=== PATIENT | female | born 1940 | race Caucasian/White ===

== ENCOUNTER 2020-03-25 10:45 | Outpatient (REF) | payer MEDICARE, SELFPAY ==
--- NOTE | 2020-03-25 | XR_ITS ---
EXAMINATION: XR CHEST CLINICAL INFORMATION: Bronchitis. COMPARISON: Chest 10/15/2019 TECHNIQUE: 2 views of the chest were obtained. FINDINGS: The lungs are well-expanded and clear of acute process. Heart size and pulmonary vascularity is normal. There is [id number] dextroscoliosis of dorsal spine. No lytic process. XR/XR chest 2V IMPRESSION: No acute cardiopulmonary process seen. Mild to moderate dextroscoliosis of dorsal spine.
[2020-03-25 13:52] LABS: MANUAL DIFF FLAG NO
[2020-03-25 14:00] LABS: Basophils Absolute Auto 0.1 X10*3/uL (0.0-0.2); Basophils Percent Auto 0.7 % (0-2); Eosinophils Absolute Auto 0.2 X10*3/uL (0.0-0.4); Eosinophils Percent Auto 2.5 % (0-4); Hemoglobin 14.8 g/dl (12.0-16.0); Imm Gran Abs Auto 0.03 X10*3/uL (0.00-0.03); Imm Gran Pct Auto 0.3 % (0.0-0.4); Lymphocytes Absolute Auto 2.9 X10*3/uL (1.2-4.9); Mean Corpuscular HGB Conc 31.5 g/dl (31.0-35.0); Mean Corpuscular Volume 88.8 fL (80-98); Monocytes Absolute Auto 0.5 X10*3/uL (0.1-1.2); Monocytes Percent Auto 5.6 % (2-11); Neutrophils Absolute Auto 5.9 X10*3/uL (2.0-8.3); Neutrophils Percent Auto 60.9 % (45-73); Platelet Count 227 X10*3/uL (160-400); Red Blood Count 5.29 X10*6/uL (4.20-5.50); Red Cell Distribution Width 13.4 % (11.0-16.0); White Blood Count 9.7 X10*3/uL (4.8-10.8)
[2020-03-25 14:48] LABS: Alanine Aminotransferase 36 U/L (0-31); Alkaline Phosphatase 153 U/L (39-117); Anion Gap 17 (12-20); Aspartate Amino Transferase 23 U/L (5-31); Bilirubin Total 0.5 mg/dL (0.0-1.0); Blood Urea Nitrogen 15 mg/dL (9-16); C Reactive Protein 2.98 mg/dL (< or = 0.50); Calcium 8.9 mg/dL (8.4-10.2); Carbon Dioxide 24 mmol/L (22-29); Chloride 104 mmol/L (96-108); Estimated Glomerular Filt Rate > 60; Glucose Random 106 mg/dL (60-115); Sodium 141 mmol/L (135-145); Total Protein 6.7 g/dL (6.5-8.0)
== END 2020-03-25 10:46 | disposition home or self-care (01) ==
LOC: HO.HMGCX 10:45
PROVIDERS: PCP Internal Medicine; Visit Provider Internal Medicine
DX: J40 Bronchitis, not specified as acute or chronic (principal); Z20.822 Contact with and (suspected) exposure to COVID-19
CPT/HCPCS: 36415; 71046; 80053; 85025; 86140; U0003

== ENCOUNTER 2020-04-12 | Outpatient (REF) | payer MEDICARE, SELFPAY | END 2020-04-12 00:01 | disposition home or self-care (01) | LOC: CF | PROVIDERS: Visit Provider Internal Medicine Cardiovascular Disease | DX: R06.02 Shortness of breath (principal); I48.0 Paroxysmal atrial fibrillation; I10 Essential (primary) hypertension | CPT/HCPCS: 93005; 99212 ==

== ENCOUNTER → 2020-04-12 14:50 | Outpatient (BNVA) | payer MEDICARE, SELFPAY | PROVIDERS: PCP Internal Medicine; Visit Provider Internal Medicine Cardiovascular Disease ==

== ENCOUNTER → 2020-04-21 07:26 | Outpatient (REF) | payer MEDICARE, SELFPAY ==
--- NOTE | ~2020-04-21 | NM_ITS ---
Myocardial perfusion study Indication: Shortness of breath evaluate for myocardial ischemia Technique: The patient was brought in for a Lexiscan perfusion study on 04/21/2020. Patient performed low-level exercise and was injected 0.4 mg of Lexiscan intravenously. Within a minute of injection, 25 mCi of sestamibi was given intravenously. Images were obtained using the SPECT gamma camera interlaced with the gating device. Images were obtained in supine position. Resting perfusion study was performed on 04/22/2020. Patient was administered 25 mCi of sestamibi intravenously at rest. Images were then obtained in supine position. Images obtained with and without CT attenuation. Total DLP 129 mGy-cm. Images were processed with the software and compared side to side in short axis, horizontal long axis and vertical long axis views. Findings: The stress perfusion study showed non attenuated images show mildly reduced uptake in the inferolateral and lateral wall of the LV myocardium especially distal lateral wall. Attenuation corrected images show normalized uptake in all segments of LV myocardium.. The gated study shows normal LV systolic function with calculated LVEF of 74%. LV cavity is normal size. The gated study shows normal systolic wall thickening and contraction of segments. Resting study shows no change in perfusion pattern compared to stress perfusion study. Gating at rest reveals normal systolic wall motion with ejection fraction at 69%. The findings are consistent with normal myocardial perfusion. NM/NM cardiolite stress test Impression: 1. Myocardial perfusion imaging study shows normal myocardial perfusion 2. Gated LVEF is 69% 3. Transient ischemic dilatation not present EKG nondiagnostic for ischemia
--- NOTE | 2020-04-21 07:31 | CA_ITS ---
Transthoracic Echocardiogram Patient (Last, First, Middle): Diane Licona R Gender: Female Date of : 1940 Age: 79 Procedure Date: 04/21/2020 Procedure Type: Transthoracic Echocardiogram Location: OP Height: 160.02 cm Weight: 79.38 kg BSA: 1.83 m2 Heart Rate: bpm BP: 140 / 78 mmHg Yarn Spinner: RUDDY Referring MD: Satnam Shaffer MD Inspector Water Pollution Control: Satnam Shaffer MD Symptoms: R06.02 - Shortness of breath Study Quality: Fair ECG Rhythm: Sinus Conclusions: - 1. Normal LV systolic function with impaired relaxation filling pattern next 2. Normal cardiac valvular Doppler 3. Normal RV systolic pressure 4. No pericardial effusion Findings Left Ventricle Normal left ventricular size, thickness, and systolic function. The visually estimated ejection fraction is between 60-65%. Spectral Doppler is indicative of an impaired relaxation filling pattern. Right Ventricle The right ventricle was not well visualized. Atria The left atrium is normal in size. Interatrial shunt cannot be excluded. The right atrium was not well visualized. Aortic Valve The aortic valve was not well visualized. There is no aortic valve stenosis. There is no aortic valve regurgitation. Mitral Valve Likely normal mitral valve structure and function. There is trace mitral valve regurgitation. There is no mitral valve stenosis. Pulmonic Valve The pulmonic valve was not well visualized. Tricuspid Valve The tricuspid valve was not well visualized. There is trace tricuspid valve regurgitation. The right ventricular systolic pressure is normal. The right ventricular systolic pressure is 21 mmHg. There is no evidence of pulmonary hypertension. Great Vessels The aorta was not well visualized. The pulmonary artery was not well visualized. Venous The inferior vena cava is normal in size and collapses greater than 50% with inspiration. Pericardium/Pleural There is no evidence of pericardial effusion. Prior Study Comparison No significant change compared to prior study dated: 05/06/2018. Measurements M-Mode Liner Measurements Normals - Women/Men AOV Cusps: 2.30 1.5-2.6 cm/m2 2D Linear Measurements IVSd: 0.88 0.6-0.9/0.6-1.0 cm LVIDd: 4.46 3.9-5.3/4.2-5.9 cm LVIDd Index: 2.44 2.4-3.2/2.2-3.1 cm/m2 LVIDs: 3.28 2.0-3.6 cm LVPWd: 0.83 0.7-1.1 cm Ao Root: 3.50 2.1-3.5 cm LA Diam: 3.40 2.7-3.8/3.0-4.0 cm LAIDs Index: 1.86 1.5-2.3 cm/m2 LV Mass: 152.61 67-162/88-224 g LV Mass Index: 83.39 43-95/49-115 g/m2 LVOT Diam: 2.20 3.0+(-)1.3 cm 2D Systolic Function EF 4C: 70.70 >55% EF 2C: 56.90 >55% EF BiP: 64.00 >55% Mitral Valve MV Pk E: 0.70 MV PK A: 0.81 MV Decel Time: 377.00 E/A: 0.90 E'Lateral: 6.64 E'Medial: 6.42 E/E' Med: 11.00 E/E' Lat: 10.60 PHT: 110.00 MVA PHT: 2.00 Decel [place]: 1.87 Aortic Valve AoV Pk Otto: 1.24 AoV Pk Grad: 6.00 LVOT LVOT Pk Otto: 0.69 LVOT Mn Otto: 0.50 LVOT VTI: 0.15 LVOT Pk Grad: 2.00 LVOT Mn Grad: 1.00 LVOT Diam: 2.20 LVOT Area: 3.80 Diastolic Function MV Pk E: 0.70 MV Pk A: 0.81 E/A: 0.90 E'Medial: 6.42 E/E' Med: 11.00 E' Laterial: 6.64 E/E' Lat: 10.60 Tricuspid Valve TR Pk Otto: 2.14 TR Pk Grad: 18.00 RA Press: 3.00 RVSP: 21.00 Great Vessels Aorta Ao Root-2D: 3.50 2.0-3.7 cm Ao Asc: 2.90 2.1-3.4 cm Ao Arch: 2.40 Pulmonary Valve PV Pk Otto: 1.10 Peak PV Grad: 5.00 Updated in Other Vendor System with Status of Final Satnam Shaffer MD electronically signed on 04/22/2020 3:09:26 PM with status of Final
--- NOTE | 2020-04-21 07:32 | CA_ITS ---
Acquisition Time: 2020-04-21 08:27:41 Total Exercise Time: 00:02:00 Test Indications: Dyspnea Medications: ELIQUIS LISINOPRIL/HCTZ METOPROLOL FLUOXETINE Protocol: LEXISCAN Max HR: 101 BPM 71% of Pred: 141 BPM Max BP: 126/072 mmHG Max Work Load: 1.0 METS Pharm stress test using Lexiscan while sitting and kicking her feet. Pt tolerated well, denies any anginal sx. C/o headache after Lexiscan, that was reversed with Aminophyline 75 mg IV. EKG with no arrhythmias, non diagnostic for ischemia. Nuclear images to follow. Normotensive response to test. Test reviewed with Dr. Mayen Referred By: Satnam Shaffer Overread By: Lori Peng
== END ==
LOC: HO.CARD 07:26
PROVIDERS: Visit Provider Internal Medicine Cardiovascular Disease
DX: R06.02 Shortness of breath (principal); I48.0 Paroxysmal atrial fibrillation; I10 Essential (primary) hypertension
CPT/HCPCS: 78452; 93005; 93017; 93306; 99212; A9500; J0280; J2785

== ENCOUNTER → 2020-05-10 14:44 | Outpatient (BNVA) | payer MEDICARE, SELFPAY | PROVIDERS: PCP Internal Medicine; Visit Provider Internal Medicine Cardiovascular Disease | DX: I48.0 Paroxysmal atrial fibrillation (principal); R06.02 Shortness of breath | CPT/HCPCS: 99212 ==

== ENCOUNTER 2020-06-01 15:38 | Outpatient (REF) | payer MEDICARE, SELFPAY ==
--- NOTE | ~2020-06-01 | MM_ITS ---
EXAMINATION: MM SCREENING DIGITAL BREAST TOMOSYNTHESIS, BILATERAL CLINICAL INFORMATION: Screening. Asymptomatic. The lifetime risk of breast cancer based on the Tyrer-Cuzick Model is 5%. COMPARISON: Mammography: 05/27/2019, 08/30/2015 TECHNIQUE: Digital breast tomosynthesis is performed in both the craniocaudal and mediolateral oblique views along with computer-aided detection (CAD). Synthesized 2D images are generated from the tomosynthesis. Additional right MLO view is provided. FINDINGS: There are scattered areas of fibroglandular density (ACR BI-RADS breast composition Category b). Parenchymal pattern is similar to prior studies. There is fine fibronodular pattern with scattered stable nodularity. Intraparenchymal nodes again seen posterior upper outer breasts. There is a dermal lesion overlying the posterior medial right breast and two incidental oil cysts overlying the central upper right breast. There is no significant mass or developing density, architectural abnormality, or abnormal calcifications. There is biopsy clip marker 12:30 o'clock position left breast. MM/MM tomosynthesis screening BI IMPRESSION: No significant changes from prior studies. ASSESSMENT: BI-RADS 2: Benign RECOMMENDATION: Routine annual mammography screening. This patient's information was entered into a reminder system with a target due date for their next mammogram.
== END 2020-06-01 15:39 | disposition home or self-care (01) ==
LOC: HO.MAMMO 15:38
PROVIDERS: Visit Provider Internal Medicine
DX: Z12.31 Encounter for screening mammogram for malignant neoplasm of breast (principal)
CPT/HCPCS: 77063; 77067

== ENCOUNTER 2020-06-20 07:53 | Outpatient (REF) | payer MEDICARE, SELFPAY ==
--- NOTE | 2020-06-20 | PFT_ITS ---
INDICATION: Dyspnea. SPIROMETRY: The FEV1 to FVC of 81% with an FEV1 of 1.29 L, which is 69% predicted and an FVC of 1.6 L, which is 64% predicted. No significant response to bronchodilators noted. Maximum voluntary ventilation only 54% predicted. LUNG VOLUMES: Total lung capacity 70% predicted with an expiratory reserve volume of 36% predicted. DIFFUSION CAPACITY: DLCO 49% predicted. COMPARISONS: None available. INTERPRETATION: No obstructive ventilatory defect. No significant response to bronchodilators noted. There is a moderate decrease in maximum voluntary ventilation, which could be secondary to deconditioning, although need to also consider neuromuscular conditions. The patient does have a mild restrictive ventilatory defect consistent with restrictive lung disease. In addition to that, there is a moderate to severe diffusion impairment. The patient also has an expiratory reserve volume that is decreased. Therefore, suggesting a component related to an elevated BMI. Clinical correlation warranted. Further imaging warranted. MD ELEAZAR Olson/MODL / [id number]
== END 2020-06-20 07:54 | disposition home or self-care (01) ==
LOC: HO.RESP 07:53
PROVIDERS: PCP Internal Medicine; Visit Provider Internal Medicine
DX: R06.00 Dyspnea, unspecified (principal)
CPT/HCPCS: 94060; 94727; 94729

== ENCOUNTER 2020-08-31 15:32 | Emergency (ER) | payer MEDICARE, SELFPAY ==
--- NOTE | ~2020-08-31 | CT_ITS ---
EXAMINATION: CT HEAD WITHOUT CONTRAST CT FACIAL BONES WITHOUT CONTRAST CT CERVICAL SPINE WITHOUT CONTRAST CLINICAL INFORMATION: Trauma COMPARISON: CT head 09/17/2019 TECHNIQUE: Imaging was performed from the skull base to vertex without intravenous administration of contrast. In addition, helical noncontrast CT imaging was acquired through the cervical spine and facial bones and source images were reviewed along with axial reconstructions and sagittal and coronal MPRs. [This CT examination was performed using dose optimization techniques as appropriate, variously including the following: *Automated exposure control *Adjustment of mA and/or kV according to patient size (this includes techniques or standardized protocols for targeted exams where dose is matched to indication/reason for exam; i.e. extremities or head) *Use of iterative reconstruction technique] DLP: 1586 mGy-cm FINDINGS: HEAD: No intracranial mass, hemorrhage, or midline shift is visualized. There is generalized global volume loss. There is moderate prominence of the ventricles and the sulci . There are vascular calcifications of the internal carotid arteries bilaterally. No extra-axial collections are identified. FACIAL BONES: There is no evidence of an acute facial bone fracture. The orbits are unremarkable in appearance. CERVICAL SPINE: There is no evidence of acute cervical spine fracture. Vertebral bodies remain normal in height, intervertebral disc spaces are preserved, and alignment is anatomic. No pre- or paravertebral soft tissue abnormality is identified. Limited assessment of the lung apices is unremarkable. CT/CT cervical spine wo con IMPRESSION: 1. No acute intracranial process or discrete facial bone fracture. 2. No acute cervical spine fracture or traumatic subluxation.
--- NOTE | ~2020-08-31 | CT_ITS ---
EXAMINATION: CT HEAD WITHOUT CONTRAST CT FACIAL BONES WITHOUT CONTRAST CT CERVICAL SPINE WITHOUT CONTRAST CLINICAL INFORMATION: Trauma COMPARISON: CT head 09/17/2019 TECHNIQUE: Imaging was performed from the skull base to vertex without intravenous administration of contrast. In addition, helical noncontrast CT imaging was acquired through the cervical spine and facial bones and source images were reviewed along with axial reconstructions and sagittal and coronal MPRs. [This CT examination was performed using dose optimization techniques as appropriate, variously including the following: *Automated exposure control *Adjustment of mA and/or kV according to patient size (this includes techniques or standardized protocols for targeted exams where dose is matched to indication/reason for exam; i.e. extremities or head) *Use of iterative reconstruction technique] DLP: 1586 mGy-cm FINDINGS: HEAD: No intracranial mass, hemorrhage, or midline shift is visualized. There is generalized global volume loss. There is moderate prominence of the ventricles and the sulci . There are vascular calcifications of the internal carotid arteries bilaterally. No extra-axial collections are identified. FACIAL BONES: There is no evidence of an acute facial bone fracture. The orbits are unremarkable in appearance. CERVICAL SPINE: There is no evidence of acute cervical spine fracture. Vertebral bodies remain normal in height, intervertebral disc spaces are preserved, and alignment is anatomic. No pre- or paravertebral soft tissue abnormality is identified. Limited assessment of the lung apices is unremarkable. CT/CT facial bones wo con IMPRESSION: 1. No acute intracranial process or discrete facial bone fracture. 2. No acute cervical spine fracture or traumatic subluxation.
--- NOTE | ~2020-08-31 | CT_ITS ---
EXAMINATION: CT HEAD WITHOUT CONTRAST CT FACIAL BONES WITHOUT CONTRAST CT CERVICAL SPINE WITHOUT CONTRAST CLINICAL INFORMATION: Trauma COMPARISON: CT head 09/17/2019 TECHNIQUE: Imaging was performed from the skull base to vertex without intravenous administration of contrast. In addition, helical noncontrast CT imaging was acquired through the cervical spine and facial bones and source images were reviewed along with axial reconstructions and sagittal and coronal MPRs. [This CT examination was performed using dose optimization techniques as appropriate, variously including the following: *Automated exposure control *Adjustment of mA and/or kV according to patient size (this includes techniques or standardized protocols for targeted exams where dose is matched to indication/reason for exam; i.e. extremities or head) *Use of iterative reconstruction technique] DLP: 1586 mGy-cm FINDINGS: HEAD: No intracranial mass, hemorrhage, or midline shift is visualized. There is generalized global volume loss. There is moderate prominence of the ventricles and the sulci . There are vascular calcifications of the internal carotid arteries bilaterally. No extra-axial collections are identified. FACIAL BONES: There is no evidence of an acute facial bone fracture. The orbits are unremarkable in appearance. CERVICAL SPINE: There is no evidence of acute cervical spine fracture. Vertebral bodies remain normal in height, intervertebral disc spaces are preserved, and alignment is anatomic. No pre- or paravertebral soft tissue abnormality is identified. Limited assessment of the lung apices is unremarkable. CT/CT head/brain wo con IMPRESSION: 1. No acute intracranial process or discrete facial bone fracture. 2. No acute cervical spine fracture or traumatic subluxation.
--- NOTE | ~2020-08-31 | XR_ITS ---
EXAMINATION: XR KNEE, LEFT CLINICAL INFORMATION: Trauma, pain COMPARISON: None TECHNIQUE: AP and crosstable lateral views of the left knee. FINDINGS: There is small suprapatellar effusion. Hoffa's fat pad at the deep infrapatellar bursa there are unremarkable. There is no fracture or dislocation or destructive process. No focal joint narrowing. There is mild spurring at the quadriceps insertion patella. XR/XR knee LT 2V IMPRESSION: Small suprapatellar effusion. No visible fracture or destructive process.
[2020-08-31 15:37] VITALS: BP 159/73; BP 181/79; PULSE 73; PULSE 75; RESP 18; TEMP 37; O2SAT 95; O2SAT 97; BMI 30.7
--- NOTE | 2020-08-31 15:51 | ED_ITS ---
HPI - Fall General Chief Complaint: Fall Stated Complaint: FALL,NOSE LAC,+COLLAR,NECK/HEAD PAIN Time Seen by Provider: 08/31/20 15:49 Source: patient Mode of arrival: EMS Limitations: no limitations History of Present Illness HPI Narrative: Fell while dancing landed on her face no LOC, complaining of head, neck and face pain. Patient is on maik [place] complaint: fall Onset (ago): minute(s) Fall from: standing Fall witnessed: yes, by bystander Place fall occurred: [facility] Loss of consciousness: none Symptoms prior to fall: none Context: tripped/slipped Location of injury: head Related Data Home Medications Medication Instructions Recorded Confirmed apixaban 5 mg tablet 5 mg PO BID 04/12/20 05/10/20 fluoxetine 20 mg capsule 20 mg PO DAILY 04/12/20 05/10/20 lisinopril 20 1 tab PO DAILY 04/12/20 05/10/20 mg-hydrochlorothiazide 12.5 mg tablet metoprolol succinate 25 mg 25 mg PO DAILY 04/12/20 05/10/20 tablet,extended release 24 hr Allergies Allergy/AdvReac Type Severity Reaction Status Date / Time Penicillins Allergy Intermediate HIVES Unverified 11/26/19 15:48 naproxen [Aleve] Allergy Unknown Verified 05/06/19 00:00 penicillin V Allergy Unknown Verified 05/06/19 00:00 From Aleve Allergy Severe ANAPHYLAXIS Uncoded 11/26/19 15:48 Review of Systems Constitutional: Constitutional: Reports no additional constitutional complaints Eyes: Eyes: Reports no additional eye complaints ENT: Denies dizziness Cardiovascular: Cardiovascular: Reports no additional cardiovascular complaints Respiratory: Respiratory: Reports as per HPI Gastrointestinal: Gastrointestinal: Reports no additional gastrointestinal complaints Genitourinary: Genitourinary: Reports no additional female genitourinary complaints Musculoskeletal: Musculoskeletal: Reports no additional musculoskeletal complaints Integumentary/Breasts: Skin/Breast: Denies rash Neurologic: Reports system reviewed and no additional complaints, except as documented, Denies dizziness and Denies Sensory deficit (Neuro) Psychiatric: Psychiatric: Denies anxiety [facility] Past Medical History Medical History (Updated 09/01/20 @ 00:01 by Christian Johnson) HTN (hypertension) Paroxysmal atrial fibrillation Surgical History (Updated 04/08/20 @ 09:50 by ALLEN Shelley) Hx of cataract Family History Family History (Updated 04/08/20 @ 09:50 by ALLEN Shelley) Father No problems noted. Mother No problems noted. Social History Social History (Updated 04/12/20 @ 15:23 by ALLEN Shelley) Advance Directives: No Advance Directives Information Provided: Yes Physical Exam Vital Signs: Vital Signs: Last Vital Signs Temp 98.1 F 08/31/20 17:05 Pulse 66 08/31/20 17:05 Resp 15 08/31/20 17:05 BP 171/63 H 08/31/20 17:05 Pulse Ox 98 08/31/20 17:05 Body Mass Index 30.7 Const: Other: elderly female with multiple facial injuries Nutritional Anuj earance: average body habitus Orientation/consciousness: oriented to person and patient oriented x3 Limitations: no limitations HENMT: Other: nasal ecchymosis and bleeding, upper lip with swelling and ecchymosis, no oral injuries Head: Yes normal to inspection Ears: external ears normal Mouth: Normal oral and palatal mucosa present and oropharynx norm al Throat: Yes posterior oropharynx normal Eyes: General: appearance normal, both eyes and all related structures Neck: Other: supple Neck: Yes normal visual inspection Chest: Chest palpation & inspection: normal inspection of the chest Resp: Auscultation: clear to auscultation bilaterally Cardio: Jugular venous distension: no JVD Rate: regular rate Rhythm: regular rhythm Heart sounds: S1 normal heart sound present and S2 normal heart sound present GI: Inspection: Yes normal to inspection Palpation (GI): Soft to palpation, nontender and No hepatosplenomegaly present Auscultation: normal bowel sounds : General: Yes no CVA tenderness Back/Spine/Pelvis: Back: no CVA tenderness Skin: General skin exam: no rashes or lesions noted Neuro: General: oriented to person and patient oriented x3 Cranial nerves: Yes CN's II-XII intact bilaterally Motor exam (neuro): 5/5 motor strength present throughout Sensory Exam: No Sensory deficit (Neuro) Extrem: Other: left knee with swelling and ecchymosis Psych: Appearance: grossly normal Course Course Course Narrative: I have reviewed the chart Reevaluation(s) Reevaluation #1: multiple bruising with no fractures Time: 16:56 MDM - Fall Imaging Data CT scan - head: Radiologist's impression: no injury facial ct: Radiologist's impression: no facial fractures cervical spine CT: Radiologist's impression: no fracture left knee: Radiologist's impression: no fracture Discharge Plan Discharge Clinical Impression: Contusion of face, Contusion of knee Patient Disposition: Home, Self-Care Additional Instructions: ice 20 minutes off and on, tylenol every 6 hours for pain Prescriptions: No Action lisinopril-hydrochlorothiazide 20-12.5 mg tablet 1 tab PO DAILY RF: 0 fluoxetine 20 mg capsule 20 mg PO DAILY RF: 0 Eliquis 5 mg tablet 5 mg PO BID RF: 0 metoprolol succinate 25 mg tablet extended release 24 hr 25 mg PO DAILY RF: 0 Referrals: Qasim Cason MD, DO [Primary Care Provider] - 2 days Interventions: ED Discharge Assessment Last Done: 08/31/20 17:34 Discharge Date/Time: 08/31/20 17:43
[2020-08-31 17:05] VITALS: BP 171/63; PULSE 66; RESP 15; TEMP 36.7; O2SAT 98
[2020-08-31] MEDS: Acetaminophen 325 MG TABLET 975 MG PO (17:27)
--- NOTE | 2020-08-31 17:43 | PC.NURSE ---
bialteral knee wounds cleansed by staff, patient up with steady gait prior to dc
== END 2020-08-31 17:43 | disposition home or self-care (01) ==
PROVIDERS: Emergency Provider Emergency Medicine; PCP Internal Medicine
DX: S00.83XA Contusion of other part of head, initial encounter (principal); S80.02XA Contusion of left knee, initial encounter; W18.39XA Other fall on same level, initial encounter; I48.0 Paroxysmal atrial fibrillation; I10 Essential (primary) hypertension; Y93.41 Activity, dancing; Y92.129 Unspecified place in nursing home as the place of occurrence of the external cause; Y99.9 Unspecified external cause status; Z79.899 Other long term (current) drug therapy; Z79.01 Long term (current) use of anticoagulants
CPT/HCPCS: 70450; 70486; 72125; 73560; 99285

== ENCOUNTER 2021-02-13 13:23 | Outpatient (REF) | payer MEDICARE, SELFPAY ==
[2021-02-13 16:19] LABS: MANUAL DIFF FLAG NO
[2021-02-13 16:24] LABS: Basophils Absolute Auto 0.1 X10*3/uL (0.0-0.2); Basophils Percent Auto 0.7 % (0-2); Eosinophils Absolute Auto 0.2 X10*3/uL (0.0-0.4); Eosinophils Percent Auto 1.6 % (0-4); Hematocrit 47.4 % (37.0-47.0); Hemoglobin 14.9 g/dl (12.0-16.0); Imm Gran Abs Auto 0.06 X10*3/uL (0.00-0.03); Imm Gran Pct Auto 0.5 % (0.0-0.4); Lymphocytes Absolute Auto 2.5 X10*3/uL (1.2-4.9); Lymphocytes Percent Auto 21.2 % (20-40); Mean Corpuscular HGB Conc 31.4 g/dl (31.0-35.0); Mean Corpuscular Hemoglobin 28.5 pg (27.0-33.0); Mean Corpuscular Volume 90.6 fL (80.0-98.0); Monocytes Absolute Auto 0.6 X10*3/uL (0.1-1.2); Monocytes Percent Auto 5.4 % (2-11); Neutrophils Absolute Auto 8.2 x10*3/uL (2.0-8.3); Neutrophils Percent Auto 70.6 % (45-73); Platelet Count 245 X10*3/uL (160-400); Red Blood Count 5.23 X10*6/uL (4.20-5.50); Red Cell Distribution Width 13.1 % (11.0-16.0); White Blood Count 11.6 X10*3/uL (4.8-10.8)
[2021-02-13 16:35] LABS: Alanine Aminotransferase 49 U/L (0-31); Albumin Level 4.2 g/dL (3.5-5.0); Alkaline Phosphatase 185 U/L (39-117); Anion Gap 12 (12-20); Aspartate Amino Transferase 37 U/L (5-31); Bilirubin Total 0.6 mg/dL (0.0-1.0); Blood Urea Nitrogen 16 mg/dL (9-16); C Reactive Protein 3.41 mg/dL (< or = 0.50); Calcium 9.9 mg/dL (8.4-10.2); Carbon Dioxide 31 mmol/L (22-29); Chloride 103 mmol/L (96-108); Estimated Glomerular Filt Rate > 60; Glucose Random 114 mg/dL (60-115); Potassium 5.3 mmol/L (3.3-5.1); Sodium 141 mmol/L (135-145); Total Protein 7.3 g/dL (6.5-8.0)
== END 2021-02-13 13:24 | disposition home or self-care (01) ==
LOC: HO.HMGCLDS 13:23
PROVIDERS: PCP Internal Medicine; Visit Provider Internal Medicine
DX: R35.0 Frequency of micturition (principal)
CPT/HCPCS: 36415; 80053; 85025; 86140

== ENCOUNTER 2021-02-14 22:27 | Outpatient (REF) | payer MEDICARE, SELFPAY ==
[2021-02-15 17:13] LABS: Appearance Urine HAZY; Color Urine YELLOW; Glucose Urine UA NEG (NEG); Leukocyte Esterase Urine 2+ (NEG); Nitrite Urine POS (NEG); Specific Gravity - Urine >= 1.030 (1.005-1.025); UACC Culture Trigger YES; Urine Blood TRACE (NEG); Urine Ketones 5 MG/DL (NEG); Urine Protein 1+ MG/DL (NEG-TRACE)
[2021-02-15 17:27] LABS: Bacteria Urine 1+ /LPF; Calcium Oxalate Crystals Urine 2+ /LPF; Mucus Urine 2+ /LPF; RBC Urine 0-2 /HPF (0); Squamous Epithelial Cell Urine 1+ /LPF; Tyrosine Crystal Urine TRACE /LPF
[2021-02-15 17:28] LABS: UACC CULT YES
== END 2021-02-14 22:28 | disposition home or self-care (01) ==
LOC: HO.LNP 22:27
PROVIDERS: Visit Provider Nurse Practitioner Family
DX: R30.0 Dysuria (principal)
CPT/HCPCS: 81001; 87086

== ENCOUNTER 2021-02-15 14:27 | Outpatient (REF) | payer MEDICARE, SELFPAY | END 2021-02-15 14:28 | disposition home or self-care (01) | LOC: HO.HMGCLNP 14:27 | PROVIDERS: Visit Provider Nurse Practitioner Family | DX: Z13.89 Encounter for screening for other disorder (principal) ==

== ENCOUNTER 2021-05-18 08:14 | Outpatient (REF) | payer OTHER, SELFPAY ==
--- NOTE | ~2021-05-18 | XR_ITS ---
EXAMINATION: XR KNEE, LEFT CLINICAL INFORMATION: Knee pain, unspecified chronicity COMPARISON: Radiographs of the left knee 08/31/2020 TECHNIQUE: Four views of the left knee. FINDINGS: There is minimal enthesopathy of the quadriceps tendon insertion. The bones and soft tissues are otherwise essentially normal. No fracture or joint effusion. Alignment is anatomic. Joint spaces are well maintained. No abnormal soft tissue calcification. XR/XR knee LT 4V IMPRESSION: No acute abnormality.
--- NOTE | ~2021-05-18 | XR_ITS ---
EXAMINATION: XR KNEE, RIGHT CLINICAL INFORMATION: Knee pain, unspecified chronicity. COMPARISON: None TECHNIQUE: Four views of the right knee. FINDINGS: There is mild enthesopathy of the quadriceps tendon insertion. And soft tissues are normal. No fracture or joint effusion. Alignment is anatomic. Joint spaces are well maintained. No abnormal soft tissue calcification. XR/XR knee RT 4V IMPRESSION: Essentially unremarkable knee.
[2021-05-18 11:35] LABS: MANUAL DIFF FLAG NO
[2021-05-18 11:50] LABS: Basophils Absolute Auto 0.1 X10*3/uL (0.0-0.2); Basophils Percent Auto 0.7 % (0-2); Eosinophils Absolute Auto 0.2 X10*3/uL (0.0-0.4); Eosinophils Percent Auto 2.2 % (0-4); Hematocrit 48.9 % (37.0-47.0); Hemoglobin 14.9 g/dl (12.0-16.0); Imm Gran Abs Auto 0.04 X10*3/uL (0.00-0.03); Imm Gran Pct Auto 0.4 % (0.0-0.4); Lymphocytes Absolute Auto 2.8 X10*3/uL (1.2-4.9); Mean Corpuscular HGB Conc 30.5 g/dl (31.0-35.0); Mean Corpuscular Hemoglobin 27.6 pg (27.0-33.0); Mean Corpuscular Volume 90.7 fL (80.0-98.0); Mean Platelet Volume 11.1 fL (9.4-12.3); Monocytes Absolute Auto 0.5 X10*3/uL (0.1-1.2); Monocytes Percent Auto 5.2 % (2-11); Neutrophils Absolute Auto 6.7 x10*3/uL (2.0-8.3); Neutrophils Percent Auto 64.5 % (45-73); Platelet Count 249 X10*3/uL (160-400); Red Blood Count 5.39 X10*6/uL (4.20-5.50); Red Cell Distribution Width 12.7 % (11.0-16.0); White Blood Count 10.4 X10*3/uL (4.8-10.8)
[2021-05-18 12:04] LABS: Alanine Aminotransferase 26 U/L (0-31); Albumin Level 4.2 g/dL (3.5-5.0); Alkaline Phosphatase 172 U/L (39-117); Anion Gap 14 (12-20); Aspartate Amino Transferase 22 U/L (5-31); Bilirubin Total 0.6 mg/dL (0.0-1.0); Blood Urea Nitrogen 14 mg/dL (9-16); Calcium 9.7 mg/dL (8.4-10.2); Carbon Dioxide 28 mmol/L (22-29); Chloride 104 mmol/L (96-108); Estimated Glomerular Filt Rate > 60; Glucose Random 125 mg/dL (60-115); Potassium 4.7 mmol/L (3.3-5.1); Sodium 141 mmol/L (135-145); Total Protein 7.1 g/dL (6.5-8.0)
[2021-05-18 12:30] LABS: Thyroid Stimulating Hormone 1.32 uIU/mL (0.32-4.0)
== END 2021-05-18 08:15 | disposition home or self-care (01) ==
LOC: HO.HMGCX 08:14
PROVIDERS: PCP Internal Medicine; Visit Provider Internal Medicine
DX: I10 Essential (primary) hypertension (principal); I48.92 Unspecified atrial flutter; F32.9 Major depressive disorder, single episode, unspecified; M25.561 Pain in right knee; R06.00 Dyspnea, unspecified; M25.562 Pain in left knee
CPT/HCPCS: 36415; 73564; 80053; 82306; 84443; 85025

== ENCOUNTER 2021-06-15 14:17 | Outpatient (REF) | payer OTHER, SELFPAY ==
--- NOTE | ~2021-06-15 | XR_ITS ---
EXAMINATION: XR CHEST CLINICAL INFORMATION: Shortness of breath COMPARISON: 03/25/2020 TECHNIQUE: 2 views of the chest were obtained. FINDINGS: Normal symmetric lung volumes. No parenchymal consolidation. No pleural effusion. No pneumothorax. Cardiomediastinal silhouette and pulmonary vascularity are within normal limits. Aorta is atherosclerotic. No acute osseous abnormalities. Moderate dextroconvex thoracic scoliosis. XR/XR chest 2V IMPRESSION: No acute findings.
== END 2021-06-15 14:18 | disposition home or self-care (01) ==
LOC: HO.XRAY 14:17
PROVIDERS: PCP Internal Medicine; Visit Provider Internal Medicine
DX: R06.02 Shortness of breath (principal)
CPT/HCPCS: 71046; 99212

== ENCOUNTER → 2021-06-20 14:39 | Outpatient (BNVA) | payer OTHER, SELFPAY | PROVIDERS: PCP Internal Medicine; Visit Provider Internal Medicine Cardiovascular Disease | DX: I48.0 Paroxysmal atrial fibrillation (principal); I10 Essential (primary) hypertension | CPT/HCPCS: 93005; 99212 ==

== ENCOUNTER 2021-06-28 10:45 | Outpatient (REF) | payer OTHER, SELFPAY ==
--- NOTE | 2021-06-28 | PFT_ITS ---
Forced vital capacity 64%, FEV1 68%, FEV1/FVC ratio is 78, [id number] 81%, MVV is 58%. Post bronchodilator therapy, there is no change. Total lung capacity 69% and residual volume 75%. Diffusion capacity is 60% and corrected with the volume, DL/VA is 95%. CONCLUSION: These findings are consistent with moderately severe restrictive pulmonary disorder. No significant obstructive airway disorder. Clinical correlation is recommended. MD JOHN Rivas/JOSELINE / [id number]
== END 2021-06-28 10:46 | disposition home or self-care (01) ==
LOC: HO.RESP 10:45
PROVIDERS: PCP Internal Medicine; Visit Provider Internal Medicine
DX: R06.00 Dyspnea, unspecified (principal)
CPT/HCPCS: 94060; 94727; 94729

== ENCOUNTER → 2021-07-24 14:13 | Outpatient (BNVA) | payer OTHER, SELFPAY | PROVIDERS: PCP Internal Medicine; Visit Provider Internal Medicine | DX: J98.4 Other disorders of lung (principal); R06.02 Shortness of breath | CPT/HCPCS: 99212 ==

== ENCOUNTER 2021-10-24 13:57 | Outpatient (REF) | payer OTHER, SELFPAY ==
--- NOTE | ~2021-10-24 | US_ITS ---
EXAMINATION: US PELVIS CLINICAL INFORMATION: 81year-old with thickened endometrium noted on outside CT. Right oophorectomy decades ago. COMPARISON: Report pelvic ultrasound 01/25/2009. CT pelvis 09/17/2019. TECHNIQUE: Ultrasound of the pelvis is performed using both transabdominal and transvaginal transducers along with Doppler. Transvaginal imaging is performed due to inadequate visualization transabdominally. FINDINGS: Uterus: The uterus is anteverted and within normal size measuring 6.5 x 3.1 x 4.6 cm cm. There is nonspecific thickening of the endometrium with double wall thickness 1.3 cm. The endometrium appears homogeneous. No fluid in uterine cavity. There are some scattered cystic foci lower uterine segment, likely junctional zone rather than endometrial location, possibly related to adenomyosis. The uterine surface is smooth. There is small intramural anterior body fibroid measuring just under 1 cm. There are some small nabothian cysts in the cervix. Adnexa: Prior right oophorectomy decades ago. The left ovary is not visualized. There is no visible adnexal mass or pelvic ascites. US/US pelvic and transvaginal IMPRESSION: Uterus: -Thickened endometrium, double wall thickness 1.3 cm. -Small anterior body intramural fibroid under 1 cm. -Scattered small cysts lower uterine segment likely junctional zone possibly adenomyosis. -Small nabothian cysts in cervix. Adnexa: -Prior right oophorectomy. Left ovary not visualized. -No adnexal mass or pelvic ascites.
== END 2021-10-24 13:58 | disposition home or self-care (01) ==
LOC: HO.HMGCX 13:57
PROVIDERS: PCP Internal Medicine; Visit Provider Internal Medicine
DX: R93.89 Abnormal findings on diagnostic imaging of other specified body structures (principal)
CPT/HCPCS: 76830; 76856

== ENCOUNTER 2021-11-09 15:56 | Outpatient (REF) | payer OTHER, SELFPAY | END 2021-11-09 15:57 | disposition home or self-care (01) | LOC: HO.LNP 15:56 | PROVIDERS: PCP Internal Medicine; Visit Provider Obstetrics & Gynecology | DX: N84.1 Polyp of cervix uteri (principal); D21.9 Benign neoplasm of connective and other soft tissue, unspecified | CPT/HCPCS: 57500; 88305; 99202 ==

== ENCOUNTER → 2021-12-05 12:35 | Outpatient (BNVA) | payer OTHER, SELFPAY | PROVIDERS: PCP Internal Medicine; Visit Provider Obstetrics & Gynecology | DX: N84.1 Polyp of cervix uteri (principal); R93.89 Abnormal findings on diagnostic imaging of other specified body structures; D21.9 Benign neoplasm of connective and other soft tissue, unspecified | CPT/HCPCS: 99212 ==

== ENCOUNTER → 2021-12-13 15:44 | Outpatient (BNVA) | payer OTHER, SELFPAY | PROVIDERS: Visit Provider Obstetrics & Gynecology | DX: R93.89 Abnormal findings on diagnostic imaging of other specified body structures (principal) | CPT/HCPCS: Q3014 ==

== ENCOUNTER → 2022-01-25 14:09 | Outpatient (BNVA) | payer OTHER, SELFPAY | PROVIDERS: PCP Internal Medicine; Visit Provider Internal Medicine | DX: J98.4 Other disorders of lung (principal); R06.02 Shortness of breath | CPT/HCPCS: 99212 ==

== ENCOUNTER 2022-05-11 15:24 | Outpatient (REF) | payer OTHER, SELFPAY ==
--- NOTE | ~2022-05-11 | US_ITS ---
EXAMINATION: US PELVIS COMPLETE CLINICAL INFORMATION: Benign neoplasm of the connective tissue COMPARISON: Pelvic ultrasound 10/24/2021 TECHNIQUE: Transabdominal and transvaginal imaging was performed. FINDINGS: The uterus is of normal size and echogenicity measuring 7.2 x 2.9 x 4.0 cm. The endometrium is thickened, measuring measuring 1.5 cm. Previously 1.3 cm Again seen is a subcentimeter myoma in the anterior body of the uterus measuring 0.9 cm unchanged from prior. Ovaries were not identified sonographically. No adnexal mass. There is no pelvic free fluid. US/US pelvic and transvaginal IMPRESSION: 1. Endometrium is thickened measuring up to 1.5 cm, increased from prior. Recommend gynecologic referral for further evaluation and correlation with any symptoms of postmenopausal bleeding. 2. Again seen is a subcentimeter myoma in the anterior body of the uterus. 3. Ovaries were not identified sonographically. No adnexal mass.
== END 2022-05-11 15:25 | disposition home or self-care (01) ==
LOC: HO.US 15:24
PROVIDERS: Visit Provider Obstetrics & Gynecology
DX: D21.9 Benign neoplasm of connective and other soft tissue, unspecified (principal)
CPT/HCPCS: 76830; 76856

== ENCOUNTER → 2022-06-11 14:48 | Outpatient (REF) | payer OTHER, SELFPAY ==
--- NOTE | 2022-06-11 14:52 | CA_ITS ---
Transthoracic Echocardiogram Patient (Last, First, Middle): Diane Licona R Gender: Female Date of : 1940 Age: 81 Procedure Date: 06/11/2022 Procedure Type: Transthoracic Echocardiogram Location: OP Height: 160.02 cm Weight: 77.11 kg BSA: 1.80 m2 Heart Rate: 79 bpm BP: 124 / 70 mmHg Senior Technical Trainer: SB Referring MD: Satnam Shaffer MD Symptoms: I48.0 - Paroxysmal atrial fibrillation Study Quality: Fair ECG Rhythm: Sinus Conclusions: - The left ventricular systolic function is normal. The visually estimated ejection fraction is between 60-65%. - No obvious valvular pathology seen on this study. - Suspect pericardial fat. Possible small effusion posteriorly. Findings Procedure Information The study quality is limited by the patients inability to tolerate the test and patients body habitus. Left Ventricle Normal left ventricular cavity size. The left ventricular systolic function is normal. The visually estimated ejection fraction is between 60-65%. There is no evidence of regional wall motion abnormalities. Diastolic function is normal for age. There is mild septal asymmetric hypertrophy. Right Ventricle Normal right ventricular cavity size. There is low normal right ventricular systolic function. Atria Both atria are normal in size. Aortic Valve There is a normal trileaflet aortic valve. There is mild calcification of the aortic valve. There is no aortic valve stenosis. There is no aortic valve regurgitation. Mitral Valve The mitral valve appears normal. There is trace mitral valve regurgitation. There is no mitral valve stenosis. Pulmonic Valve The pulmonic valve is likely normal. Tricuspid Valve There is mild tricuspid valve regurgitation. There is no evidence of pulmonary hypertension. Great Vessels The asc aorta is normal in size. Venous The inferior vena cava is normal in size and collapses greater than 50% with inspiration. Pericardium/Pleural Suspect pericardial fat. Possible small effusion posteriorly. Prior Study Comparison No significant change compared to prior study dated: 04/21/2020. Recommendations, Care & Conclusions No obvious valvular pathology seen on this study. Measurements 2D Linear Measurements IVSd: 1.04 0.6-0.9/0.6-1.0 cm LVIDd: 3.97 3.9-5.3/4.2-5.9 cm LVIDd Index: 2.21 2.4-3.2/2.2-3.1 cm/m2 LVIDs: 2.21 2.0-3.6 cm LVPWd: 0.95 0.7-1.1 cm LA Diam: 3.10 2.7-3.8/3.0-4.0 cm LAIDs Index: 1.72 1.5-2.3 cm/m2 LV Mass: 154.99 67-162/88-224 g LV Mass Index: 86.11 43-95/49-115 g/m2 LVOT Diam: 2.20 3.0+(-)1.3 cm Mitral Valve MV Pk E: 0.60 MV PK A: 0.90 MV Decel Time: 219.00 E/A: 0.70 E'Lateral: 5.98 E'Medial: 4.24 E/E' Med: 14.20 E/E' Lat: 10.10 PHT: 64.00 MVA PHT: 3.44 Decel Fergus: 2.76 Aortic Valve AoV Pk Otto: 1.26 AoV Pk Grad: 6.00 LVOT LVOT Pk Otto: 1.03 LVOT Mn Otto: 0.71 LVOT VTI: 0.20 LVOT Pk Grad: 4.00 LVOT Mn Grad: 2.00 LVOT Diam: 2.20 LVOT Area: 3.80 Diastolic Function MV Pk E: 0.60 MV Pk A: 0.90 E/A: 0.70 E'Medial: 4.24 E/E' Med: 14.20 E' Laterial: 5.98 E/E' Lat: 10.10 Right Ventricle TAPSE (mm): 16.10 TVS' Otto: 11.00 Tricuspid Valve TR Pk Otto: 2.01 TR Pk Grad: 16.00 RA Press: 3.00 RVSP: 19.00 Great Vessels Aorta Sinus of Valsalva: 3.60 2.0-3.5 cm Ao Asc: 3.10 2.1-3.4 cm Pulmonary Veins Pulm Vein S/D 1.60 Pulmonary Valve PV Pk Otto: 1.09 Peak PV Grad: 5.00 Updated in Other Vendor System with Status of Final Hans Mayen MD electronically signed on 06/12/2022 12:37:08 PM with status of Final
== END ==
LOC: HO.CARD 14:48
PROVIDERS: PCP Internal Medicine; Visit Provider Internal Medicine Cardiovascular Disease
DX: I48.0 Paroxysmal atrial fibrillation (principal)
CPT/HCPCS: 93306

== ENCOUNTER 2022-07-03 15:50 | Outpatient (REF) | payer OTHER, SELFPAY ==
[2022-07-03 16:05] LABS: MANUAL DIFF FLAG NO
[2022-07-03 17:01] LABS: Basophils Absolute Auto 0.1 X10*3/uL (0.0-0.2); Basophils Percent Auto 0.7 % (0-2); Eosinophils Absolute Auto 0.2 X10*3/uL (0.0-0.4); Eosinophils Percent Auto 1.7 % (0-4); Hematocrit 47.6 % (37.0-47.0); Hemoglobin 15.2 g/dl (12.0-16.0); Imm Gran Abs Auto 0.05 X10*3/uL (0.00-0.03); Imm Gran Pct Auto 0.4 % (0.0-0.4); Lymphocytes Absolute Auto 3.4 X10*3/uL (1.2-4.9); Mean Corpuscular HGB Conc 31.9 g/dl (31.0-35.0); Mean Corpuscular Hemoglobin 28.6 pg (27.0-33.0); Mean Corpuscular Volume 89.5 fL (80.0-98.0); Monocytes Absolute Auto 0.9 X10*3/uL (0.1-1.2); Monocytes Percent Auto 7.1 % (2-11); Neutrophils Absolute Auto 7.5 x10*3/uL (2.0-8.3); Neutrophils Percent Auto 62.1 % (45-73); Platelet Count 237 X10*3/uL (160-400); Red Blood Count 5.32 X10*6/uL (4.20-5.50); Red Cell Distribution Width 12.6 % (11.0-16.0); White Blood Count 12.1 X10*3/uL (4.8-10.8)
[2022-07-03 17:30] LABS: Alanine Aminotransferase 17 U/L (0-31); Albumin Level 4.3 g/dL (3.5-5.0); Alkaline Phosphatase 161 U/L (39-117); Anion Gap 14 (12-20); Aspartate Amino Transferase 17 U/L (5-31); Bilirubin Total 0.5 mg/dL (0.0-1.0); Blood Urea Nitrogen 19 mg/dL (9-16); Calcium 9.8 mg/dL (8.4-10.2); Carbon Dioxide 29 mmol/L (22-29); Chloride 105 mmol/L (96-108); Estimated Glomerular Filt Rate > 60; Glucose Random 102 mg/dL (60-115); Potassium 5.4 mmol/L (3.3-5.1); Sodium 143 mmol/L (135-145); Total Protein 6.9 g/dL (6.5-8.0)
== END 2022-07-03 15:51 | disposition home or self-care (01) ==
LOC: HO.LAB 15:50
PROVIDERS: PCP Internal Medicine; Visit Provider Internal Medicine
DX: I10 Essential (primary) hypertension (principal); I48.92 Unspecified atrial flutter; E55.9 Vitamin D deficiency, unspecified; F32.9 Major depressive disorder, single episode, unspecified; R93.89 Abnormal findings on diagnostic imaging of other specified body structures
CPT/HCPCS: 36415; 80053; 85025

== ENCOUNTER → 2022-07-10 15:01 | Outpatient (BNVA) | payer OTHER, SELFPAY | PROVIDERS: PCP Internal Medicine; Visit Provider Obstetrics & Gynecology | DX: D21.9 Benign neoplasm of connective and other soft tissue, unspecified (principal); R93.89 Abnormal findings on diagnostic imaging of other specified body structures | CPT/HCPCS: 99212 ==

== ENCOUNTER → 2022-08-16 14:49 | Outpatient (BNVA) | payer OTHER, SELFPAY | PROVIDERS: PCP Internal Medicine; Referring Provider Internal Medicine; Visit Provider Internal Medicine Cardiovascular Disease | DX: I48.0 Paroxysmal atrial fibrillation (principal); I10 Essential (primary) hypertension; R07.89 Other chest pain | CPT/HCPCS: 93005; 99212 ==

== ENCOUNTER → 2022-09-13 09:24 | Outpatient (REF) | payer OTHER, SELFPAY | LOC: HO.CARD 09:24 | PROVIDERS: PCP Internal Medicine; Visit Provider Internal Medicine Cardiovascular Disease | DX: R07.89 Other chest pain (principal) | CPT/HCPCS: 78452; 93017; A9500; J0280; J2785 ==

== ENCOUNTER 2023-06-10 12:46 | Outpatient (REF) | payer OTHER, SELFPAY ==
[2023-06-10 13:03] LABS: MANUAL DIFF FLAG NO
[2023-06-10 13:41] LABS: Basophils Absolute Auto 0.1 X10*3/uL (0.0-0.2); Basophils Percent Auto 0.9 % (0-2); Eosinophils Absolute Auto 0.2 X10*3/uL (0.0-0.4); Eosinophils Percent Auto 1.8 % (0-4); Hematocrit 46.7 % (37.0-47.0); Hemoglobin 14.9 g/dl (12.0-16.0); Imm Gran Abs Auto 0.05 X10*3/uL (0.00-0.03); Imm Gran Pct Auto 0.4 % (0.0-0.4); Lymphocytes Absolute Auto 2.5 X10*3/uL (1.2-4.9); Lymphocytes Percent Auto 21.6 % (20-40); Mean Corpuscular HGB Conc 31.9 g/dl (31.0-35.0); Mean Corpuscular Hemoglobin 28.2 pg (27.0-33.0); Mean Corpuscular Volume 88.3 fL (80.0-98.0); Mean Platelet Volume 10.6 fL (9.4-12.3); Monocytes Absolute Auto 0.7 X10*3/uL (0.1-1.2); Neutrophils Absolute Auto 7.9 x10*3/uL (2.0-8.3); Neutrophils Percent Auto 69.3 % (45-73); Platelet Count 232 X10*3/uL (160-400); Red Blood Count 5.29 X10*6/uL (4.20-5.50); Red Cell Distribution Width 12.6 % (11.0-16.0); White Blood Count 11.4 X10*3/uL (4.8-10.8)
[2023-06-10 14:18] LABS: Alanine Aminotransferase 23 U/L (0-31); Albumin Level 4.2 g/dL (3.5-5.0); Alkaline Phosphatase 139 U/L (39-117); Anion Gap 12 (12-20); Aspartate Amino Transferase 20 U/L (5-31); Bilirubin Total 0.5 mg/dL (0.0-1.0); Blood Urea Nitrogen 16 mg/dL (9-16); Carbon Dioxide 31 mmol/L (22-29); Chloride 104 mmol/L (96-108); Cholesterol 212 mg/dL (<200); Estimated Glomerular Filt Rate > 60; Glucose Fasting 107 mg/dL (60-99); HDL Cholesterol 59 mg/dL (>40); LDL Cholesterol Calculated 124 mg/dL (<100); Potassium 5.2 mmol/L (3.3-5.1); Sodium 142 mmol/L (135-145); Total Protein 7.4 g/dL (6.5-8.0); Triglycerides 147 mg/dL (<150)
[2023-06-10 14:35] LABS: Thyroid Stimulating Hormone 0.93 uIU/mL (0.32-4.0)
[2023-06-10 14:38] LABS: Vitamin B12 1079 pg/mL (200-900)
== END 2023-06-10 12:47 | disposition home or self-care (01) ==
LOC: HO.LAB 12:46
PROVIDERS: PCP Internal Medicine; Visit Provider Internal Medicine
DX: Z13.6 Encounter for screening for cardiovascular disorders (principal); G30.9 Alzheimer's disease, unspecified
CPT/HCPCS: 36415; 80053; 80061; 82607; 84443; 85025

== ENCOUNTER 2023-08-20 12:40 | Outpatient (REF) | payer OTHER, SELFPAY ==
--- NOTE | 2023-08-20 12:44 | EEG_ITS ---
This is a 16 channel EEG with an EKG lead. The patient is reported alert and awake during the tracing. Background EEG rhythm is 8 to 10 hertz 5 to 20 microvolt posteriorly, lower amplitude fast anteriorly. Photic stimulation does not produce any significant driving. Hyperventilation is not performed. Cardiac lead does not reveal any significant abnormality. No sharp wave spikes or paroxysmal tendency noted. IMPRESSION: No significant abnormality noted on this EEG. MD BREANNA Gann/JOSELINE / [phone]
== END 2023-08-20 12:41 | disposition home or self-care (01) ==
LOC: HO.NEURO 12:40
PROVIDERS: PCP Internal Medicine; Visit Provider Psychiatry & Neurology Neurology
DX: G40.209 Localization-related (focal) (partial) symptomatic epilepsy and epileptic syndromes with complex partial seizures, not intractable, without status epilepticus (principal)
CPT/HCPCS: 95816

== ENCOUNTER 2023-08-31 20:04 | Emergency (ER) | payer OTHER, SELFPAY ==
--- NOTE | 2023-08-31 | ECG_ITS ---
Test Reason : NAUSEA/VOMITING Blood Pressure : / mmHG Vent. Rate : 084 BPM Atrial Rate : 084 BPM P-R Int : 202 ms QRS Dur : 136 ms QT Int : 410 ms P-R-T Axes : 079 -17 000 degrees QTc Int : 484 ms Normal sinus rhythm Right bundle branch block Abnormal ECG When compared with ECG of 18-DEC-2017 16:11, Right bundle branch block has replaced Incomplete right bundle branch block Referred By: Generic ED Physician Electronically Signed By:LOTTIE GOODMAN MD
--- NOTE | ~2023-08-31 | CT_ITS ---
EXAMINATION: CT ABDOMEN AND PELVIS WITH CONTRAST CLINICAL INFORMATION: abd pain, n/v/d COMPARISON: CT abdomen/pelvis 09/17/2019 TECHNIQUE: Multidetector volumetric images were obtained from the superior aspect of the liver through the pubic symphysis following administration 85 mL of Omnipaque 350 intravenous contrast. Sagittal and coronal reformatted images were obtained on the technologist's workstation. Oral contrast: No This CT examination was performed using dose optimization techniques as appropriate, variously including the following: *Automated exposure control *Adjustment of mA and/or kV according to patient size (this includes techniques or standardized protocols for targeted exams where dose is matched to indication/reason for exam; i.e. extremities or head) *Use of iterative reconstruction technique DLP: 724 mGy-cm FINDINGS: LUNG BASES: The visualized lung bases are unremarkable. LIVER, GALLBLADDER, AND BILIARY TREE: The liver is diffusely hypoattenuating relative to the spleen. The liver is normal in size and shape. No focal hepatic lesion or biliary ductal dilatation is present. The gallbladder is unremarkable with no evidence of radiopaque gallstones, gallbladder wall thickening, or obvious pericholecystic inflammatory changes. PANCREAS: Unremarkable. SPLEEN: Unremarkable. ADRENAL GLANDS: There is a 1 cm right adrenal nodule is stable dating back to 2017. Normal left adrenal gland. KIDNEYS AND URETERS: The kidneys are normal in size, shape, and attenuation. No hydronephrosis, hydroureter, or calculi seen. No perinephric stranding. BLADDER: The bladder has circumferential wall thickening and mucosal hyperemia. There is dependently layered excreted contrast. GASTROINTESTINAL TRACT: The small and large bowel are nondilated. Mild sigmoid diverticulosis without evidence of acute diverticulitis. The appendix is not seen, however there is no other quadrant stranding to suggest acute appendicitis. ABDOMINAL WALL: No bowel containing hernia is appreciated. LYMPH NODES: Normal. VASCULAR: Unremarkable. PELVIC VISCERA: Normal CT appearance of the uterus. No adnexal masses. OSSEOUS STRUCTURES: No acute or suspicious osseous abnormality. Leftward lumbar scoliosis with apex at L3. Multilevel degenerative disc disease and lumbar spine. CT/CT abdomen pelvis w IV con IMPRESSION: 1. The bladder has circumferential wall thickening and mucosal hyperemia. Recommend correlation with urinalysis. 2. Hepatic steatosis. 3. Sigmoid diverticulosis without evidence of acute diverticulitis. Fleischner guidelines were followed.
[2023-08-31 20:15] VITALS: BP 179/70; BP 210/104; PULSE 81; PULSE 88; RESP 18; TEMP 36.8; O2SAT 95; O2SAT 96; BMI 29.2
[2023-08-31 21:30] VITALS: BP 175/66; PULSE 77; RESP 14; O2SAT 97
--- NOTE | 2023-08-31 21:33 | ED.NAVMDI ---
HPI - Nausea/Vomiting/Diarrhea General Chief complaint: Nausea/Vomiting/Diarrhea Stated complaint: N/V/D, WEAKNESS Time Seen by Provider: 08/31/23 21:27 Source: patient and RN notes reviewed Mode of arrival: ambulatory Limitations: no limitations History of Present Illness ED Provider: Sandy Cheema PA-C HPI Narrative: This is a 82-year-old female, with a history of atrial fibrillation on Eliquis and hypertension, who presents emergency department with complaints of urinary freuquency, nausea, vomiting and diarrhea for the last 4-5 days. Patient states that over the last several days she has had many episodes of diarrhea. She denies any bloody or black stool. She denies any recent antibiotic use. She states that she was taking Imodium for her symptoms. She states that the diarrhea has since resolved and now she is vomiting. She denies any current nausea however states that every time she eats she vomits. She states that she is feeling worn out. She also endorses some dysuria, and frequency. She states that her symptoms feel similar to urinary tract infection she has had in the past. She denies fevers, chills, chest pain, shortness of breath, bloody or black stool. No other complaints or concerns at this time. MD elicited complaint: nausea, vomiting, diarrhea and abdominal pain Description of diarrhea: watery Associated nausea: Yes Associated abdominal pain: Yes Location of pain: epigastric Pain consistency: constant Severity: moderate Quality: cramping Exacerbating factors: eating Relieving factors: none Associated symptoms: denies other symptoms Treatment prior to arrival: immodium Related Data Home Medications ?Medication ?Instructions ?Recorded ?Confirmed apixaban 5 mg tablet (Eliquis) 5 mg PO BID 04/12/20 09/01/23 lisinopril 20 mg tablet 10 mg PO DAILY 06/15/21 09/01/23 metoprolol succinate 25 mg 50 mg PO DAILY 06/15/21 09/01/23 tablet,extended release 24 hr cholecalciferol (vitamin D3) 25 50 mcg PO DAILY 01/25/22 09/01/23 mcg (1,000 unit) capsule venlafaxine 225 mg tablet,extended 150 mg PO DAILY 01/25/22 09/01/23 release 24 hr Allergies Allergy/AdvReac Type Severity Reaction Status Date / Time Penicillins Allergy Intermediate HIVES Verified 07/10/22 15:16 naproxen [Aleve] Allergy Unknown Swelling Verified 08/31/23 20:17 Review of Systems Review of Systems: Yes all other systems are reviewed and are negative Constitutional: Constitutional: Reports as per HPI Gastrointestinal: Gastrointestinal: Reports nausea PMFSH Past Medical History Medical History HTN (hypertension) Paroxysmal atrial fibrillation Restrictive lung disease Surgical History History of right oophorectomy Hx of appendectomy Hx of cataract Family History Family History Father No problems noted. Mother No problems noted. Social History Social History Alcohol intake: current Alcohol intake frequency: holidays/special occasions only Patient Tobacco Use Status: Never used Tobacco Smoked in Last 30 Days: No Use of substances other than those prescribed or required for medical reasons: No Advance Directives: No Advance Directives Information Provided: No Do you have a plan to hurt others: No Plan Physical Exam Vital Signs: Vital Signs: Last Vital Signs Temp 98.2 F 09/02/23 14:00 Pulse 61 09/02/23 14:00 Resp 14 09/02/23 14:00 BP 146/61 H 09/02/23 14:00 Pulse Ox 95 09/02/23 14:00 O2 Del Method Room Air 09/02/23 14:00 BMI result Body Mass Index 29.2 Const: General: cooperative, comfortable and no acute distress Orientation/consciousness: patient oriented x3 Limitations: no limitations HEENT: Head: Yes normal to inspection, Yes normocephalic and Yes atraumatic Ears: hearing grossly normal bilaterally General nose exam: Normal external nose present Face and sinus: Yes normal facial exam Mouth: Normal oral and palatal mucosa present, oropharynx normal and moist mucous membranes Throat: Yes posterior oropharynx normal Eyes: General: appearance normal, both eyes and all related structures Eyelids: Yes eyelids normal Conjunctivae: conjunctivae normal Sclerae: sclerae normal Pupils: Equal, round and reactive pupils present EOM: EOMs intact bilaterally Neck: Neck: Yes normal visual inspection, Yes full ROM and Yes no lymphadenopathy Lymphatic: no lymphadenopathy noted Chest: Chest palpation & inspection: normal inspection of the chest Resp: Effort & Inspection: normal respiratory effort and able to speak in complete sentences Auscultation: clear to auscultation bilaterally, no crackles, no rales, no rhonchi and no wheezes Cardio: Rate: regular rate Rhythm: regular rhythm Heart sounds: S1 normal heart sound present and S2 normal heart sound present GI: Other: Abdomen is soft, diffuse tenderness throughout, tenderness palpation in the suprapubic region as well as the epigastrium. Inspection: Yes normal to inspection : General: Yes no CVA tenderness Back/Spine/Pelvis: Back: no CVA tenderness Skin: General skin exam: no rashes or lesions noted Trauma: no lacerations or abrasions Wounds: no wounds Neuro: General: patient oriented x3 and moves all extremities Cranial nerves: Yes Equal, round and reactive pupils present Extrem: General: Yes normal to inspection Right upper extremity: normal to inspection Left upper extremity: normal to inspection Right lower extremity: normal to inspection Left lower extremity: normal to inspection Course Reevaluation(s) Reevaluation #1: Patient's workup today revealing urinary tract infection. CT abdomen and pelvis revealing findings consistent with UTI. Patient has slight leukocytosis at 13.8, all other vital signs within normal limits. No evidence of QAMAR Urine appears to be infected. Viral swabs negative. Discussed workup with patient as well as daughter at bedside. Will treat for urinary tract infection. Daughter does not feel comfortable for discharge home due to weakness. Daughter would like patient to stay overnight to be evaluated by Physical therapy and case management. At this time, patient does not qualify for hospital admission for urinary tract infection and weakness. Patient has an allergy to penicillins, reporting that the reaction are hives. No record of ever taking cephalosporins. Will treat with Macrobid. Will continue to closely monitor pending PT/ Case Management for safe disposition. She is eating and drinking without vomiting, nausea, or worsening abdominal pain. Patient is in agreement with this plan. Physician observation initiated pending PT Case Management dispo. Time: 01:59 Medications Administered Generic Name Dose Route Start Last Admin Trade Name Freq PRN Reason Stop Dose Admin Apixaban 5 mg 09/01/23 14:45 09/02/23 09:14 Apixaban 5 Mg Tablet PO 5 mg BID JUDY Administration Lisinopril 10 mg 09/01/23 14:45 09/02/23 09:14 Lisinopril 10 Mg Tablet PO 10 mg DAILY [facility] Administration Protocol Metoprolol Succinate 50 mg 09/01/23 14:45 09/02/23 09:14 Metoprolol Succinate Er 50 Mg Tab.Er.24h PO 50 mg DAILY JUDY Administration Protocol Nitrofurantoin Macrocrystals 100 mg 09/01/23 02:10 09/02/23 09:14 Nitrofurantoin Monohyd/M-Cryst 100 Mg Capsule PO 100 mg BID JUDY Administration Ondansetron HCl 4 mg 09/02/23 11:26 09/02/23 11:31 Ondansetron Odt 4 Mg Tab.Rapdis TRANSLINGU 4 mg Q8H PRN Administration Nausea and Vomiting Venlafaxine HCl 150 mg 09/01/23 14:45 09/02/23 10:25 Venlafaxine Hcl Er 150 Mg Cap.Er.24h PO 150 mg DAILY JUDY Administration Vitamin D 50 mcg 09/01/23 14:45 09/02/23 09:14 Cholecalciferol (Vitamin D3) 25 Mcg Tablet PO 50 mcg DAILY JUDY Administration Discontinued Medications Generic Name Dose Route Start Last Admin Trade Name Freq PRN Reason Stop Dose Admin Ceftriaxone Sodium 1 gm/ 50 mls @ 100 mls/hr 09/01/23 05:00 09/01/23 05:50 Sodium Chloride IV 09/01/23 05:29 Infused ONCE ONE Infusion Iohexol 85 ml 08/31/23 23:47 08/31/23 23:50 Iohexol 350 Mg/Ml 100 Ml Infus..Btl IV 08/31/23 23:48 85 ml ONCE ONE Administration Medical Decision Making Medical Decision Making [facility] Narrative: This is a 82-year-old female who presents emergency department with complaints of diarrhea, nausea, vomiting and abdominal pain. On arrival, patient mildly hypertensive at 179/70. All other vital signs within normal limits. She is nontoxic appearing and speaking in full sentences. She is alert and oriented x4. Abdomen is soft, with tenderness palpation in the epigastrium and suprapubic region. No rebound or guarding. Normoactive bowel sounds present in all 4 quadrants. No recent antibiotic use. Differential diagnoses include gastritis, gastroenteritis, small bowel obstruction, QAMAR, electrolyte derangement, urinary tract infection. Plan: Labs, EKG, viral swabs, UA, abdomen and pelvis CT Differential Diagnosis Differential Diagnoses: The differential diagnosis associated with the presentation includes See above Admission/Observation Consideration of admission/observation: Escalation of care including admission/observation considered Escalation of care including admission/observation considered however given workup today not warranted at this time. Lab Data MDM Lab Attestation statement: I reviewed the patient's lab results. Slight leukocytosis at 13.8, chemistry within normal limits. Urine with moderate blood, leuk esterases, and wbc's. Also with 4+ bacteria. Urinalysis findings consistent with urinary tract infection. 08/31/23 22:16 08/31/23 22:16 Labs: Lab Results 08/31/23 08/31/23 Range/Units 22:15 22:16 WBC 13.8 H (4.8-10.8) X10*3/uL RBC 4.84 (4.20-5.50) X10*6/uL Hgb 13.7 (12.0-16.0) g/dl Hct 41.4 (37.0-47.0) % MCV 85.5 (80.0-98.0) fL MCH 28.3 (27.0-33.0) pg MCHC 33.1 (31.0-35.0) g/dl RDW 12.7 (11.0-16.0) % Plt Count 180 (160-400) X10*3/uL MPV 10.1 (9.4-12.3) fL Immature Gran % (Auto) 0.3 (0.0-0.4) % Neut % (Auto) 74.0 H (45-73) % Lymph % (Auto) 19.4 L (20-40) % [place] % (Auto) 5.1 (2-11) % Eos % (Auto) 0.7 (0-4) % Baso % (Auto) 0.5 (0-2) % Lymph # (Auto) 2.7 (1.2-4.9) X10*3/uL [place] # (Auto) 0.7 (0.1-1.2) X10*3/uL Eos # (Auto) 0.1 (0.0-0.4) X10*3/uL Baso # (Auto) 0.1 (0.0-0.2) X10*3/uL Abs Immat Gran (auto) 0.04 H (0.00-0.03) X10*3/uL Absolute Neuts (auto) 10.2 H (2.0-8.3) x10*3/uL Absolute Nucleated RBC 0.000 (0.0-0.012) X10*3/uL Nucleated RBC % (auto) 0.0 (0.0-0.2) /100WBC Sodium 140 (135-145) mmol/L Potassium 3.6 D (3.3-5.1) mmol/L Chloride 107 (96-108) mmol/L Carbon Dioxide 24 (22-29) mmol/L Anion Gap 13 (12-20) BUN 14 (9-16) mg/dL Creatinine 0.58 (0.5-1.4) mg/dL Estim Creat Clear Calc 72.4 Estimated GFR > 60 Random Glucose 108 (60-115) mg/dL Calcium 10.3 H (8.4-10.2) mg/dL Magnesium 2.1 (1.6-2.6) mg/dL Total Bilirubin 0.4 (0.0-1.0) mg/dL AST 12 (5-31) U/L ALT 14 (0-31) U/L Alkaline Phosphatase 113 (39-117) U/L Troponin I High Sens < 2.7 (<3.5-17.0) ng/L Total Protein 6.7 (6.5-8.0) g/dL Albumin 3.9 (3.5-5.0) g/dL Lipase 12 (8-78) U/L Urine Color Yellow Urine Appearance Cloudy Urine pH 7.0 (5.0-9.0) Ur Specific [place] 1.010 (1.005-1.025) Urine Protein 30 (1+) H (Neg-Trace) mg/dL Urine Glucose (UA) Negative (Negative) mg/dL Urine Ketones Trace (Negative) mg/dL Urine Blood Moderate (2+) H (Negative) Urine Nitrite Negative (Negative) Ur Leukocyte Esterase Large (3+) H (Negative) Urine RBC 3-5 H (0-2) /HPF Urine WBC >50 H (0-5) /HPF Ur Squamous Epith Cells 0-2 (0-2) /HPF Urine Bacteria 4+ (None Seen) Hyaline Casts 0-2 (0-2) /LPF Influenza Type A (PCR) NEGATIVE (Negative) Influenza Type B (PCR) NEGATIVE (Negative) RSV RNA Qual (PCR) NEGATIVE (Negative) SARS-CoV-2 RNA (RT-PCR) NEGATIVE (Negative) Independent Interpretation I performed an independent interpretation of an: EKG Interpretation: EKG revealing normal sinus rhythm at a ventricular rate of 84 beats per minute, there is a right bundle-branch block, which is similar to the Lexiscan performed in September 27, 2022. This was reviewed by my attending physician, no significant changes seen. CT interval with 202, QT QTC 410/484. Radiology Impression Discussion of test interpretation with radiology: I have reviewed the radiologist's reading. Radiologist Impression: CT/CT abdomen pelvis w IV con IMPRESSION: 1. The bladder has circumferential wall thickening and mucosal hyperemia. Recommend correlation with urinalysis. 2. Hepatic steatosis. 3. Sigmoid diverticulosis without evidence of acute diverticulitis. Fleischner guidelines were followed. Dictated By: Brianne Hui Discharge Plan Discharge Clinical Impression: Acute UTI, Weakness Patient Disposition: Still a Patient Prescriptions: No Action Eliquis 5 mg tablet 5 mg PO BID metoprolol succinate 25 mg tablet extended release 24 hr 50 mg PO DAILY lisinopril 20 mg tablet 10 mg PO DAILY venlafaxine 225 mg tablet extended release 24hr 150 mg PO DAILY cholecalciferol (vitamin D3) 25 mcg (1,000 unit) capsule 50 mcg PO DAILY Referrals: [facility] [Outside] Print Language: Eritrean
[2023-08-31 22:21] LABS: MANUAL DIFF FLAG NO
[2023-08-31 22:22] LABS: Basophils Absolute Auto 0.1 X10*3/uL (0.0-0.2); Basophils Percent Auto 0.5 % (0-2); Eosinophils Absolute Auto 0.1 X10*3/uL (0.0-0.4); Eosinophils Percent Auto 0.7 % (0-4); Hematocrit 41.4 % (37.0-47.0); Hemoglobin 13.7 g/dl (12.0-16.0); Imm Gran Abs Auto 0.04 X10*3/uL (0.00-0.03); Imm Gran Pct Auto 0.3 % (0.0-0.4); Lymphocytes Absolute Auto 2.7 X10*3/uL (1.2-4.9); Lymphocytes Percent Auto 19.4 % (20-40); Mean Corpuscular HGB Conc 33.1 g/dl (31.0-35.0); Mean Corpuscular Hemoglobin 28.3 pg (27.0-33.0); Mean Corpuscular Volume 85.5 fL (80.0-98.0); Mean Platelet Volume 10.1 fL (9.4-12.3); Monocytes Absolute Auto 0.7 X10*3/uL (0.1-1.2); Monocytes Percent Auto 5.1 % (2-11); Neutrophils Absolute Auto 10.2 x10*3/uL (2.0-8.3); Platelet Count 180 X10*3/uL (160-400); Red Blood Count 4.84 X10*6/uL (4.20-5.50); Red Cell Distribution Width 12.7 % (11.0-16.0); White Blood Count 13.8 X10*3/uL (4.8-10.8)
[2023-08-31 22:27] LABS: Appearance Urine Cloudy; Color Urine Yellow; Glucose Urine UA Negative (Negative); Leukocyte Esterase Urine Large (3+) (Negative); Nitrite Urine Negative (Negative); UMIC TRIGGER UACC YES; Urine Blood Moderate (2+) (Negative); Urine Ketones Trace mg/dL (Negative); Urine Protein 30 (1+) mg/dL (Neg-Trace)
[2023-08-31 22:38] LABS: Bacteria Urine 4+ (None Seen); Hyaline Casts Urine 0-2 /LPF (0-2); Squamous Epithelial Cell Urine 0-2 /HPF (0-2); UACC Culture Trigger YES; WBC Urine >50 /HPF (0-5)
[2023-08-31 22:40] LABS: Lipase 12 U/L (8-78); Magnesium 2.1 mg/dL (1.6-2.6)
[2023-08-31 22:44] LABS: Alanine Aminotransferase 14 U/L (0-31); Albumin Level 3.9 g/dL (3.5-5.0); Alkaline Phosphatase 113 U/L (39-117); Anion Gap 13 (12-20); Aspartate Amino Transferase 12 U/L (5-31); Bilirubin Total 0.4 mg/dL (0.0-1.0); Blood Urea Nitrogen 14 mg/dL (9-16); Calcium 10.3 mg/dL (8.4-10.2); Carbon Dioxide 24 mmol/L (22-29); Chloride 107 mmol/L (96-108); Creatinine Clr Calc Pharmacy 72.4; Estimated Glomerular Filt Rate > 60; Glucose Random 108 mg/dL (60-115); Potassium 3.6 mmol/L (3.3-5.1); Sodium 140 mmol/L (135-145); Total Protein 6.7 g/dL (6.5-8.0)
[2023-08-31 22:50] LABS: Troponin-I High Sensitivity < 2.7 ng/L (<3.5-17.0)
[2023-08-31 23:04] LABS: Influenza A PCR NEGATIVE (Negative); Influenza B PCR NEGATIVE (Negative); Resp Syncy Virus RNA Qual PCR NEGATIVE (Negative); SARS COV2 PCR INHOUSE NEGATIVE (Negative)
[2023-08-31] MEDS: iohexoL 350 MG/ML 100 ML INFUS..BTL 85 ML IV (23:50)
[2023-09-01] VITALS (7 sets, daily range): BP systolic 140–158; BP diastolic 58–75; PULSE 72–87; RESP 14–16; TEMP 36.3–37; O2SAT 96–100
--- NOTE | 2023-09-01 02:03 | MHC.EDTECH ---
Pts daughter Adelina: [phone]
[2023-09-01] MEDS: Nitrofurantoin Monohyd/M-Cryst 100 MG CAPSULE PO ×3 (02:11→20:08)
--- NOTE | 2023-09-01 02:15 | PC.NURSE ---
Pt medicated per may. Pt given food and drink. Plan of care ongoing.
[2023-09-01] MEDS: cefTRIAXone sodium 1 GM in 0.9 % Sodium Chloride 50 ML IV (05:19)
--- NOTE | 2023-09-01 05:24 | PC.NURSE ---
Pt ca&ox3, no signs of distress. Pt medicated per mar. Plan of care ongoing.
--- NOTE | 2023-09-01 06:35 | PC.NURSE ---
Pt ca&ox3, no signs of distress. Pt denies pain at this time Plan of care ongoing.
--- NOTE | 2023-09-01 14:01 | MHC.CM.PN ---
CM RECEIVED ED CONSULT FOR PT. CM MET WITH PT AT BEDSIDE. PT LIVES WITH DAUGHTER SATURNINO ([phone]) AND IS INDEPENDENT AT BASELINE. PT STATES SHE IS EXHAUSTED FROM THE VOMITING SHE HAD. PT GIVES PERMISSION FOR THIS CM TO CALL HER DAUGHTER SATURNINO TO REQUREST HER TO BRING IN COPY OF HER HCP SO WE MAY HAVE ON FILE. CM CALLED AND LEFT MESSAGE FOR SATURNINO. PCP DR. CALVO. DP: PLAN FOR PT TO BE SEEN BY P.T. IN THE AM TO DETERMINE DC DISPOSITION. CM WILL CONTINUE TO FOLLOW.
[2023-09-01] MEDS: lisinopriL 10 MG TABLET PO (15:12)
[2023-09-01] MEDS: Apixaban 5 MG TABLET PO ×2 (15:12→20:08)
[2023-09-01] MEDS: Cholecalciferol (Vitamin D3) 25 MCG TABLET 50 MCG PO (15:14)
[2023-09-01] MEDS: Metoprolol Succinate ER 50 MG TAB.ER.24H PO (15:14)
[2023-09-01] MEDS: Venlafaxine HCl ER 150 MG CAP.ER.24H PO (15:14)
--- NOTE | 2023-09-01 17:55 | MHC.EDTECH ---
patient ate 100 % of dinner ,drank 240 ml fluids ,Patient comfortable resting in bed .
--- NOTE | 2023-09-01 18:22 | MHC.EDTECH ---
Patient was assisted unto bedside commode void ,care given and was assisted back into bed .
[2023-09-02 05:00] VITALS: BP 140/84; PULSE 68; RESP 16; TEMP 36.9; O2SAT 97
--- NOTE | 2023-09-02 05:50 | MHC.EDTECH ---
PATIENT SLEPT ALL NIGHT ,UP ONCE TO VOID ,VITALS TAKEN .
[2023-09-02 08:09] VITALS: BP 140/84; PULSE 68; O2SAT 97
[2023-09-02 09:14] VITALS: BP 140/84; PULSE 68
[2023-09-02] MEDS: Apixaban 5 MG TABLET PO ×2 (09:14→20:42)
[2023-09-02] MEDS: Metoprolol Succinate ER 50 MG TAB.ER.24H PO (09:14)
[2023-09-02] MEDS: lisinopriL 10 MG TABLET PO (09:14)
[2023-09-02] MEDS: Nitrofurantoin Monohyd/M-Cryst 100 MG CAPSULE PO ×2 (09:14→20:42)
[2023-09-02] MEDS: Cholecalciferol (Vitamin D3) 25 MCG TABLET 50 MCG PO (09:14)
[2023-09-02] MEDS: Venlafaxine HCl ER 150 MG CAP.ER.24H PO (10:25)
--- NOTE | 2023-09-02 11:26 | PC.NURSE ---
Patient states that they are experiencing mild nausea. Message sent to Dr. Bautista for a prn, Shelley Rivera covering over flow and he will relay message to her.
[2023-09-02] MEDS: Ondansetron ODT 4 MG TAB.RAPDIS TRANSLINGU (11:31)
--- NOTE | 2023-09-02 12:18 | MHC.CM.ED ---
Addendum entered by Delmis Babin 09/02/23 15:09: Patient aware and agreeable to STR at [facility]. Addendum entered by Delmis Babin 09/02/23 14:02: Received return telephone call from Adelina. [facility] [address] [facility] choice. [facility] has been asked to obtain insurance auth. Addendum entered by Delmis Babin 09/02/23 13:46: [facility], [facility], [facility] and [facility] [address] are all able to offer a bed. Attempted to meet with patient. Nursing care being provided. Attempted to speak with patient's daughter, Adelina, via telephone at [phone]. Left message requesting return telephone call. Original Note: Patient remains in ER overflow. Physical therapy eval completed. Short term rehab is recommended. Patient has [employer] insurance. Will be difficult to place due to this. Referral broadcasted in [facility] to all facilities within 15 miles to see who is contracted and is able to offer a bed. Copy of HCP obtained from [employer]. Continue to monitor for d/c needs.
[2023-09-02 14:00] VITALS: BP 146/61; PULSE 61; RESP 14; TEMP 36.8; O2SAT 95
--- NOTE | 2023-09-02 16:30 | PC.NURSE ---
Patient's daughter provided copy of HCP. Copy of the HCP placed in patient's chart, CM notified
[2023-09-02 20:39] VITALS: BP 136/63; PULSE 60; RESP 16; TEMP 37; O2SAT 95
--- NOTE | 2023-09-03 05:54 | PC.NURSE ---
pt resting comfortably through the night with eyes closed, breathing even and unlabored. no apparent distress noted. call pelletier w/in reach. standby assist to commode once before bed.
[2023-09-03 06:11] VITALS: BP 131/69; PULSE 74; RESP 19; TEMP 36.6; O2SAT 95
[2023-09-03 07:47] VITALS: BP 131/69; PULSE 74
[2023-09-03] MEDS: Metoprolol Succinate ER 50 MG TAB.ER.24H PO (07:47)
[2023-09-03] MEDS: lisinopriL 10 MG TABLET PO (07:47)
[2023-09-03] MEDS: Nitrofurantoin Monohyd/M-Cryst 100 MG CAPSULE PO ×2 (07:47→22:00)
[2023-09-03] MEDS: Apixaban 5 MG TABLET PO ×2 (07:47→22:00)
[2023-09-03] MEDS: Cholecalciferol (Vitamin D3) 25 MCG TABLET 50 MCG PO (07:48)
--- NOTE | 2023-09-03 08:03 | MHC.EDTECH ---
Assisted patient on and off commode and with personal hygiene. Emptied commode replaced liner.
[2023-09-03 10:15] VITALS: BP 113/50; PULSE 58; RESP 16; TEMP 36.8; O2SAT 93
--- NOTE | 2023-09-03 11:43 | PC.NURSE ---
Report taken, contact made to pharmacy at 1130 regarding meds not stocked in [facility] pyxis. Per Mo from pharmacy, Meds have been sent down, and will track down. Plan at this time is to follow up with pharmacy at 1200 it check status.
--- NOTE | 2023-09-03 11:47 | PC.NURSE ---
Called pharmacy x4 beginning at ~0750 regarding effexor not being loaded in pyxis. This RN got floated at ~1140 and med was still not loaded, oncoming RN aware.
[2023-09-03] MEDS: Venlafaxine HCl ER 150 MG CAP.ER.24H PO (12:02)
--- NOTE | 2023-09-03 13:53 | MHC.CM.ED ---
Patient remains in ER overflow. Still waiting for insurance auth for [facility] [place] on [address]. Continue to monitor for d/c needs.
[2023-09-03 19:37] VITALS: BP 139/66; PULSE 62; RESP 12; TEMP 36.7; O2SAT 95
--- NOTE | 2023-09-03 19:45 | PC.NURSE ---
This RN assumed pt care @ 1900. Pt resting comfortably in bed, no signs of acute distress. Plan of care ongoing.
--- NOTE | 2023-09-03 20:00 | PC.NURSE ---
Pt assisted to bedside commode. Plan of care ongoing.
--- NOTE | 2023-09-03 20:07 | PC.NURSE ---
Pt assisted back into bed by this RN Pt requested and given ice water. Plan of care ongoing.
--- NOTE | 2023-09-03 22:26 | PC.NURSE ---
Pt medicated per may. Meds in applesauce, pt tolerated well. Plan of care ongoing.
[2023-09-04 06:00] VITALS: BP 131/65; PULSE 62; RESP 12; TEMP 36.6; O2SAT 94
--- NOTE | 2023-09-04 08:09 | PHA.MEDREC ---
Pharmacy Consult ? Medication Reconciliation Pharmacy has completed the medication reconciliation. Reviewed med rec done by nursing
[2023-09-04 08:17] VITALS: BP 134/56; PULSE 66; RESP 16; TEMP 36.9; O2SAT 92
[2023-09-04] MEDS: Apixaban 5 MG TABLET PO (08:34)
[2023-09-04] MEDS: Nitrofurantoin Monohyd/M-Cryst 100 MG CAPSULE PO (08:34)
[2023-09-04] MEDS: Venlafaxine HCl ER 150 MG CAP.ER.24H PO (08:34)
[2023-09-04] MEDS: Metoprolol Succinate ER 50 MG TAB.ER.24H PO (08:34)
[2023-09-04] MEDS: lisinopriL 10 MG TABLET PO (08:34)
[2023-09-04] MEDS: Cholecalciferol (Vitamin D3) 25 MCG TABLET 50 MCG PO (08:34)
[2023-09-04 09:20] VITALS: BP 134/56; PULSE 66; RESP 16; TEMP 36.9; O2SAT 92
--- OUTSIDE RECORDS SUMMARY | 2023-09-05 07:13 | XMS_ITS | Patient Health Record ---
Author Organization Qasim Cason DO, FACP Address [address], [place] [id number] Care Team Providers Care Human Capital Analyst Name Role Phone Qsaim Cason Primary Care Provider ALLERGIES Allergen (clinical drug ingredient) Drug/Non Drug Allergy documented on EMR Reaction Allergy Type Onset Date Status penicillin V Penicillin V Potassium urticaria Drug Allergy Active naproxen Naprosyn anaphylaxis Drug Allergy Activ e RESULTS Component Value Reference Range Notes Complete Blood Count Auto Di ff Reviewed date:06/10/2023 02:00:26 PM Interpretation:Abnormal Performing Lab:[facility], [address] [place] [phone] Notes/Report: White Blood Count 11.4 4.8-10.8 X10*3/uL Red Blood Count 5.29 4.20-5.50 X10*6/uL Hemoglobin 14.9 12.0-16.0 g/dl Hematocrit 46.7 37.0-47.0 % Mean Corpuscular Volume 88.3 80.0-98.0 fL Mean Corpuscular Hemoglobin 28.2 27.0-33.0 pg Mean Corpuscular HGB Conc 31.9 31.0-35.0 g/dl Red Cell Distribution Width 12.6 11.0-16.0 % Platelet Count 232 160-400 X10*3/uL Mean Platelet Volume 10.6 9.4-12.3 fL Neutrophils Percent Auto 69.3 45-73 % Imm Gran Pct Auto 0.4 0.0-0.4 % Lymphocytes Percent Auto 21.6 20-40 % Monocytes Percent Auto 6.0 2-11 % Eosinophils Percent Auto 1.8 0-4 % Basophils Percent Auto 0.9 0-2 % NRBC Pct Auto 0.0 0.0-0.2 /100WBC Neutrophils Absolute Auto 7.9 2.0-8.3 x10*3/u L Imm Gran Abs Auto 0.05 0.00-0.03 X10*3/uL Lymphocytes Absolute Auto 2.5 1.2-4.9 X10*3/u L Monocytes Absolute Auto 0.7 0.1-1.2 X10*3/uL Eosinophils Absolute Auto 0.2 0.0-0.4 X10*3/u L Basophils Absolute Auto 0.1 0.0-0.2 X10*3/uL NRBC Abs Auto 0.000 0.0-0.012 X10*3/uL [facility] [place]. Panel Fa st Reviewed date:06/10/2023 03:50:04 PM Interpretation:Abnormal Performing Lab:[facility], [address] [place] [phone] Notes/Report: Sodium 142 135-145 mmol/L Potassium 5.2 3.3-5.1 mmol/L Chloride 104 96-108 mmol/L Carbon Dioxide 31 22-29 mmol/L Anion Gap 12 12-20 Blood Urea Nitrogen 16 9-16 mg/dL Creatinine 0.71 0.5-1.4 mg/dL Estimated Glomerular Filt Rate > 60 NOTE: For -Palest[place] individuals, multiply the result by 1.210. Chronic Kidney Disease: Estimated GFR < 60 mL/min/1.73m2 Severe Kidney Disease: Estimated GFR < 15 mL/min/1.73m2 Glucose Fasting 107 60-99 mg/dL A fasting glucose from 100-125 mg/dl is considered impaired (pre-diabetes). Calcium 10.0 8.4-10.2 mg/dL Bilirubin Total 0.5 0.0-1.0 mg/dL Aspartate Amino Transferase 20 5-31 U/L Alanine Aminotransferase 23 0-31 U/L Total Protein 7.4 6.5-8.0 g/dL Albumin Level 4.2 3.5-5.0 g/dL Alkaline Phosphatase 139 39-117 U/L Lipid Panel Reviewed date:06/10/2023 03:48:44 PM Interpretation:Normal Performing Lab:[facility], [address] [place] [phone] Notes/Report: Triglycerides 147 <150 mg/dL Desirable Triglyceride: less than 150 mg/dL Borderline High Triglyceride 150-199 mg/dL High Triglyceride: 200-499 mg/dL Very High Triglyceride: greater than or equal to 5OO mg/dL Cholesterol 212 <200 mg/dL Desirable Cholesterol: less than 200 mg/dL Borderline High Cholesterol: 200-239 mg/dL High Cholesterol: greater than 239 mg/dL LDL Cholesterol Calculated 124 <100 mg/dL Desirable LDL: less than 100 mg/dL Near Optimal/Above Optimal LDL: 110-129 mg/dL Borderline High LDL: 130-159 mg/dL High LDL: 160-189 mg/dL Very High LDL: greater than or equal to 190 mg/dL HDL Cholesterol 59 >40 mg/dL Desirable HDL: greater than 40 mg/dL Note: This HDL assay may give artificially low results in patients with liver disease. Vitamin B12 Reviewed date:06/10/2023 03:48:44 PM Interpretation:Normal Performing Lab:[facility], [address] [place] [phone] Notes/Report: Vitamin B12 1079 200-900 pg/mL NORMAL 200-900 PG/ML INDETERMINATE 160-199 PG/ML DEFICIENT < 160 PG/ML Thyroid Stimulating Hormone Reviewed date:06/10/2023 03:48:44 PM Interpretation:Normal Performing Lab:[facility], [address] [place] [phone] Notes/Report: Thyroid Stimulating Hormone 0.93 0.32-4.0 uIU/ mL TSH 3rd Generation ([facility]) REASON FOR REFERRAL Reason Memory loss Diagnosis 1 Memory loss (R41.3) Referral Organization Qasim Crum, FACP Referring Provider First Name Qasim Referring Provider Last Name Kamla Referring Provider Speciality Internal M edicine Referred Provider Faye Parsons Referred Provider Specialty Neurology General Notes Michelle Weiner 024 11:12:30 AM EST > referral faxed; patient notified. Referral Priority Routine Referral Appointment Date 06/10/2023 MEDICATIONS Medication SIG (Take, Route, Frequency, Duration) Notes Start Date End Date Status Vitamin D 50 MCG (1999) 1 tablet Oral ly Once a day 09/08/2021 Active Metoprolol Succinate ER 50 mg TAKE 1 TABLET DAILY Active Lisinopril 10 MG 1 tablet Orally Once a day for 90 days Active Eliquis 5 MG 1 tablet Orally Twic e a day Active Venlafaxine HCl ER 150 MG 1 tablet with food Orally Once a day for 90 days 05/07/2023 Active Venlafaxine HCl ER 75 MG 2 capsules with food Orally Once a day for 90 days Active IMMUNIZATIONS Vaccine Route Administration Date Status Comme nts Pneumococcal - PPSV23 Unknown 12/22/2008 Administered Influenza Unknown 01/31/2011 Administered Influenza IM Intramuscular 12/19/2011 Administered Influenza Unknown 01/09/2013 Administered Influenza IM Intramuscular 11/25/2013 Administered Influenza High Dose IM Intramuscular 11/24/2015 Administer ed Influenza Quad IM Intramuscular 01/10/2017 Administered PCV 13 IM Intramuscular 01/14/2017 Administered Influenza High Dose IM Intramuscular 12/11/2017 Administer ed Influenza Quad IM Intramuscular 12/31/2018 Administered Influenza High Dose IM Intramuscular 11/30/2019 Administer ed Influenza High Dose IM Intramuscular 12/29/2020 Administer ed COVID-19 Pfizer BioNTech Unknown 05/14/2020 Administere d COVID-19 Pfizer BioNTech Unknown 02/07/2021 Administere d Pneumococcal - PPSV23 Unknown 12/19/2017 Administered COVID-19 Pfizer BioNTech Unknown 04/23/2020 Administere d Influenza High Dose IM Intramuscular 11/29/2021 Administer ed COVID-19 Pfizer Bivalent Unknown 01/15/2022 Administere d Influnza High Dose Quad Unknown 11/29/2021 Administered SOCIAL HISTORY Tobacco Use: Social History Observation Description Date Details (start date - stop date) Never Smoker NA - NA Sex Assigned At : Social History Observation Description Sex Assigned At Unknown Tobacco Use/Smoking Question Answer Notes Patient is a nonsmoker Additional Findings: Tobacco Non-User Cu rrent non-smoker, currently using no form of tobacco Alcohol Screen Question Answer Notes Did you have a drink contain ing alcohol in the past year? Yes How often did you have a dri nk containing alcohol in the past year? Monthly or less (1 point) How many drinks did you have on a typical day when you were drinking in the past year? 1 or 2 drinks (0 point) How often did you have 6 or more drinks on one occasion in the past year? 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) Active confirmed 66533068 Problem Essential hypertension with goal blood pressure less than 130\/85 (I10) Active confirmed 39600692 Problem Memory loss (R41.3) Active confirmed 85707538 Problem Atrial flutter, unspecified type (I48.92) Active confirmed 9474926 Problem GALLEGOS (dyspnea on exertion) (R06.00) Active confirmed Dyspnea on exertion (90383420) Problem Thickened endometrium (R93.89) Active confirmed 268566855 Encounters Encounter Location Date Provider Diagnosis Qasim Cason DO, [facility] [address] [place], [place] [id number] 05/07/2023 Qasim Cason Atrial flutter, unspecified type I48.92 ; Essential hypertension with goal blood pressure less than 130\/85 I10 ; Reactive depression F32.9 ; Vitamin D deficiency E55.9 and Memory loss R41.3 Qasim Cason DO, [facility] [address] [place], [place] [id number] 08/07/2023 Qasim Cason DO, [facility] [address] [place], [place] [id number] 09/03/2023 Qasim Cason DO, [facility] [address] [place], [place] [id number] 10/17/2022 Qasim Cason DO, [facility] [address] [place], [place] [id number] 12/18/2022 Qasim Cason DO, [facility] [address] [place], [place] [id number] 12/21/2022 Qasim Cason DO, [facility] [address] [place], [place] [id number] 12/24/2022 Qasim Cason DO, [facility] [address] [place], [place] [id number] 12/28/2022 Qasim Cason DO, [facility] [address] [place], [place] [id number] 12/28/2022 Qasim Cason DO, [facility] [address] [place], [place] [id number] 04/19/2023 Qasim Cason Essential hypertension with goal blood pressure less than 130\/85 I10 Qasim Cason DO, [facility] [address], [place] [id number] 04/22/2023 Qasim Cason Essential hypertension with goal blood pressure less than 130\/85 I10 Qasim Cason DO, [facility] [address] [place], [place] [id number] 05/01/2023 Qasim Cason DO, FACP [address] [place], [place] [id number] 05/06/2023 Qasim Cason Essential hypertension with goal blood pressure less than 130\/85 I10 Qasim Cason DO, FACP [address] [place], [place] [id number] 05/10/2023 Qasim Cason DO, [facility]AC [address] [place], [place] [id number] 05/14/2023 Qasim Cason Essential hypertension with goal blood pressure less than 130\/85 I10 Qasim Cason DO, FACP [address] [place], [place] [id number] 05/22/2023 Qasim Cason Reactive depression F32.9 Qasim Cason DO, [facility] [address] [place], [place] [id number] 06/07/2023 Qasim Cason Reactive depression F32.9 Qasim Cason DO, [facility] [address] [place], [place] [id number] 06/12/2023 Qasim Cason Reactive depression F32.9 Qasim Cason DO, [facility] [address] [place], [place] [id number] 07/18/2023 Qasim Cason DO, [facility] [address] [place], [place] [id number] 09/02/2023 Qasim Cason DO, [facility] [address] [place], [place] [id number] 01/02/2023 Qasim Cason DO, [facility] [address] [place], [place] [id number] 12/28/2022 Qasim Cason Functional diarrhea K59.1 ; Atrial flutter, unspecified type I48.92 ; Essential hypertension with goal blood pressure less than 130\/85 I10 ; Vitamin D deficiency E55.9 and Reactive depression F32.9 Qasim Cason DO, [facility]AC [address] [place], [place] [id number] 02/22/2023 Qasim Cason DO, [facility] [address] [place], [place] [id number] 03/01/2023 Qasim Cason ASSESSMENTS Encounter Date Diagnosis Assessment Notes Treatment Notes Treatment Clinical Notes 05/07/2023 Essential hypertension with goal blood pressure less than 130\/85 (ICD-10 - I10) 05/07/2023 Atrial flutter, unspecified type (ICD-10 - I48.92) 04/19/2023 Essential hypertension with goal blood pressure less than 130\/85 (ICD-10 - I10) 04/22/2023 Essential hypertension with goal blood pressure less than 130\/85 (ICD-10 - I10) 05/06/2023 Essential hypertension with goal blood pressure less than 130\/85 (ICD-10 - I10) 05/14/2023 Essential hypertension with goal blood pressure less than 130\/85 (ICD-10 - I10) 05/22/2023 Reactive depression (ICD-10 - F32.9) 06/07/2023 Reactive depression (ICD-10 - F32.9) 06/12/2023 Reactive depression (ICD-10 - F32.9) 12/28/2022 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 Eat noodles. Call next week with clinical update 12/28/2022 Atrial flutter, unspecified type (ICD-10 - I48.92) 05/07/2023 Reactive depression (ICD-10 - F32.9) C/O difficulty swallowing the capsules, would prefer a tablet 12/28/2022 Essential hypertension with goal blood pressure less than 130\/85 (ICD-10 - I10) 05/07/2023 Vitamin D deficiency (ICD-10 - E55.9) 12/28/2022 Vitamin D deficiency (ICD-10 - E55.9) 05/07/2023 Memory loss (ICD-10 - R41.3) 12/28/2022 Reactive depression (ICD-10 - F32.9) PLAN OF TREATMENT No Information Insurance Providers Payer Name Payer Address Payer Phone Subscriber Number Group Number Insured Name Patient Relationship to Insured Coverage Start Date Coverage End Date [employer] [address] [address] [place] [phone] [id number] Diane Licona Self - patient is the insured MEDICARE [address] [place] [phone] [id number] Diane Licona Self - patient is the insured MEDICAL (GENERAL) HISTORY Medical History History ICD Code hypertension insomnia dermatitis dysphagia spinal stenosis congestive heart failure cataracts tendonitis (calcific tendonitis, right s houlder) gastritis depression pinched nerve, low back, with radiation down the right leg positive PPD tubular adenoma Atrial flutter, unspecified type I48.92 Functional diarrhea Weakness R53.1 Closed fracture of multiple ribs of righ t side, initial encounter S22.41XA GALLEGOS (dyspnea on exertion) R06.00 Surgical History Surgery Date(Month/Year) cataract removal OU right oopherectomy secondary to a ruptur ed ovarian cyst incidental appendectomy
== END 2023-09-04 09:22 ==
PROVIDERS: Physician Assistant Medical; Student in an Organized Health Care Education/Training Program; Emergency Provider Emergency Medicine; PCP Internal Medicine
DX: N39.0 Urinary tract infection, site not specified (principal); B96.20 Unspecified Escherichia coli [E. coli] as the cause of diseases classified elsewhere; R53.1 Weakness; R11.2 Nausea with vomiting, unspecified; I10 Essential (primary) hypertension; I48.0 Paroxysmal atrial fibrillation; R06.02 Shortness of breath; J98.4 Other disorders of lung; Z79.01 Long term (current) use of anticoagulants; Z79.899 Other long term (current) drug therapy; Z03.818 Encounter for observation for suspected exposure to other biological agents ruled out
CPT/HCPCS: 0241U; 74177; 80053; 81001; 83690; 83735; 84484; 85025; 87040; 87086; 87088; 87186; 93005; 96365; 97161; 99285; J0696; Q9967

== ENCOUNTER → 2023-08-31 21:31 | Outpatient (BNV) | payer OTHER, SELFPAY | PROVIDERS: Emergency Provider Emergency Medicine; Visit Provider Internal Medicine Cardiovascular Disease | DX: R94.31 Abnormal electrocardiogram [ECG] [EKG] (principal) | CPT/HCPCS: 93010 ==

== ENCOUNTER 2023-09-16 14:07 | Outpatient (AMB) | payer OTHER, SELFPAY ==
--- NOTE | 2023-09-16 14:08 | MHC.OFFWIV ---
Intake Vital Signs 09/16/23 14:09 Height 5 ft 4 in Weight 165 lb BMI 28.3 BP 140/70 H Blood Pressure Location Rt brachial Position Sitting Pulse 71 Pulse Source Pulse Oximeter Temp 97.4 F Temp Source Oral Pulse Oximetry (%) 96 Oxygen Delivery Method Room Air Intake Visit Reasons: EP cold, itch (throat) Intake Note: pt is here for cough, body ache and itchy skin Patient Tobacco Use Status: Never used Tobacco Allergies Penicillins Allergy (Intermediate, Verified 07/10/22 15:16) HIVES naproxen [Aleve] Allergy (Unknown, Verified 08/31/23 20:17) Swelling Do you need a note to return to daycare/school/sports/work: No HPI HPI Comments History of Present Illness Details Patient is an 82-year-old female complaining of itchy arms times the last few days. She states her arms have been itchy since she changed the body wash she uses. She also states she has a cough, fatigue, she feels like she is wheezing and has some congestion with a slightly productive cough since she was discharged from rehab over the weekend. She states she was admitted to the hospital for hypertension and then went to rehab and just got discharged 2 days ago. She believes she caught infection while she was in the hospital. She denies a history of asthma or COPD. She denies fevers, sinus pain or ear pain. [facility] Medical History HTN (hypertension) Paroxysmal atrial fibrillation Restrictive lung disease Surgical History History of right oophorectomy Hx of appendectomy Hx of cataract Family History Father No problems noted. Mother No problems noted. Social History Alcohol intake: current Alcohol intake frequency: holidays/special occasions only Patient Tobacco Use Status: Never used Tobacco Review of Systems Const All systems reviewed & are unremarkable except as noted in HPI and below Physical Exam Vital Signs: Last Vital Signs Temp 97.4 F 09/16/23 14:09 Pulse 71 09/16/23 14:09 BP 140/70 H 09/16/23 14:09 Pulse Ox 96 07/08/24 14:09 Oxygen Delivery Method Room Air 09/16/23 14:09 BMI result Body Mass Index 28.3 Const General: cooperative, healthy appearing, comfortable and no acute distress Orientation/consciousness: patient oriented x3 Limitations: no limitations HEENT Head: Yes normal to inspection Ears: hearing grossly normal bilaterally and external ears normal General nose exam: Normal external nose present, Normal nares present and No nasal discharge present Face and sinus: Yes normal facial exam Mouth: Normal oral and palatal mucosa present and moist mucous membranes Throat: Yes tonsils normal, Yes uvula midline and Yes posterior oropharynx abnormal (Erythema) Eyes General: appearance normal, both eyes and all related structures Neck Neck: Yes normal visual inspection Resp Effort & Inspection: normal respiratory effort, able to speak in complete sentences, Actively coughing, no respiratory distress, not tachypneic, no tripod positioning and no use of accessory muscles Auscultation: clear to auscultation bilaterally Cardio Rate: regular rate Rhythm: regular rhythm Heart sounds: normal S1 and S2 Skin General skin exam: no rashes or lesions noted Neuro General: patient oriented x3 Extrem General: Yes normal to inspection and Yes no clubbing, cyanosis or edema Assessment & Plan Assessment & Plan (1) Pruritus of forearm: Code(s): L29.9 - Pruritus, unspecified Plan: Recommended stopping using the lotion or shower gel she is using and going home to take a shower and going back to her previous soap. Also gave her Benadryl in the office because she was extremely itchy during the exam, she is not driving home. (2) URI (upper respiratory infection): Code(s): J06.9 - Acute upper respiratory infection, unspecified Qualifiers: URI type: unspecified viral URI Qualified Code(s): J06.9 - Acute upper respiratory infection, unspecified Plan: Sent Flu/Covid/RSV test, got CXR, will send abx if PNA; sent inhaler to pharmacy. Plan see above Orders: Orders SARS-CoV2/FLU/RSV Today J06.9 - Acute upper respiratory infection, unspecified XR chest 2V Today R05.9 - Cough, unspecified AMB Diphenhydramine Adult Dose Today L29.9 - Pruritus, unspecified Medications: New diphenhydramine HCl 25 mg PO ONCE 1 tab 0RF itching L29.9 - Pruritus, unspecified albuterol sulfate 90 mcg/actuation 2 puffs inhalation Q6H PRN 8.5 grams 0RF shortness of breath or wheezing or cough Coding Level of Care Code Est Pt Level 4 (68190) Diagnoses Pruritus of forearm L29.9 Viral upper respiratory tract infection J06.9 URI type: unspecified viral URI
[2023-09-16 14:09] VITALS: BP 140/70; PULSE 71; TEMP 36.3; O2SAT 96; BMI 28.3
--- OUTSIDE RECORDS SUMMARY | 2023-09-16 14:09 | XMS_ITS | Patient Health Record ---
Author Organization Qasim Cason DO, FACP Address [address], [place] [id number] Care Team Providers Care Head Butler Name Role Phone Qasim Cason Primary Care Provider ALLERGIES Allergen (clinical drug ingredient) Drug/Non Drug Allergy documented on EMR Reaction Allergy Type Onset Date Status penicillin V Penicillin V Potassium urticaria Drug Allergy Active naproxen Naprosyn anaphylaxis Drug Allergy Activ e RESULTS Component Value Reference Range Notes Complete Blood Count Auto Di ff Reviewed date:06/10/2023 02:00:26 PM Interpretation:Abnormal Performing Lab:[facility], [address] [place] [phone] Notes/Report: White Blood Count 11.4 4.8-10.8 X10*3/uL [...] NRBC Abs Auto 0.000 0.0-0.012 X10*3/uL Comprehensive [place]. Panel Fa st Reviewed date:06/10/2023 03:50:04 PM Interpretation:Abnormal Performing Lab:[facility], [address] [place] [phone] Notes/Report: Sodium 142 135-145 mmol/L Potassium 5.2 3.3-5.1 mmol/L Chloride 104 96-108 mmol/L Carbon Dioxide 31 22-29 mmol/L Anion Gap 12 12-20 Blood Urea Nitrogen 16 9-16 mg/dL Creatinine 0.71 0.5-1.4 mg/dL Estimated Glomerular Filt Rate > 60 NOTE: For -[place] individuals, multiply the result by 1.210. Chronic [...] Panel Reviewed date:06/10/2023 03:48:44 PM Interpretation:Normal Performing Lab:[facility], [address] [place] [phone] Notes/Report: Triglycerides 147 <150 mg/dL Desirable Triglyceride: [...] B12 Reviewed date:06/10/2023 03:48:44 PM Interpretation:Normal Performing Lab:[facility], [address] [place] [phone] Notes/Report: Vitamin B12 1079 200-900 pg/mL NORMAL 200-900 PG/ML INDETERMINATE 160-199 PG/ML DEFICIENT < 160 PG/ML Thyroid Stimulating Hormone Reviewed date:06/10/2023 03:48:44 PM Interpretation:Normal Performing Lab:[facility], [address] [place] [phone] Notes/Report: Thyroid Stimulating Hormone 0.93 0.32-4.0 uIU/ [...] Problem Vitamin D deficiency (E55.9) Active confirmed 09106797 Problem 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) Active confirmed 21742995 Problem Essential hypertension with goal blood pressure less than 130\/85 (I10) Active confirmed 29030550 Problem Memory loss (R41.3) Active confirmed 40779911 Problem Atrial flutter, unspecified type (I48.92) Active confirmed 3618993 Problem GALLEGOS (dyspnea on exertion) (R06.00) Active confirmed Dyspnea on exertion (03786672) Problem Thickened endometrium (R93.89) Active confirmed 857450304 Encounters Encounter Location Date Provider Diagnosis Qasim Cason DO, [facility] [address], [place] [id number] 05/07/2023 Qasim Cason Atrial flutter, unspecified type I48.92 ; Essential hypertension with goal blood pressure less than 130\/85 I10 ; Reactive depression F32.9 ; Vitamin D deficiency E55.9 and Memory loss R41.3 Qasim Cason DO, [facility] [address], [place] [id number] 08/07/2023 Qasim Cason DO, [facility] [address], [place] [id number] 09/03/2023 Qasim Cason DO, [facility] [address], [place] [id number] 10/17/2022 Qasim Cason DO, [facility] [address], [place] [id number] 12/18/2022 Qasim Cason DO, [facility] [address], [place] [id number] 12/21/2022 Qasim Cason DO, [facility] [address], [place] [id number] 12/24/2022 Qasim Cason DO, [facility] [address], [place] [id number] 12/28/2022 Qasim Cason DO, [facility] [address], [place] [id number] 12/28/2022 Qasim Cason DO, [facility] [address], [place] [id number] 04/19/2023 Qasim Cason Essential hypertension with goal blood pressure less than 130\/85 I10 Qasim Cason DO, [facility] [address], [place] [id number] 04/22/2023 Qasim Cason Essential hypertension with goal blood pressure less than 130\/85 I10 Qasim Cason DO, [facility] [address], [place] [id number] 05/01/2023 Qasim Cason DO, FACP [address], [place] [id number] 05/06/2023 Qasim Cason Essential hypertension with goal blood pressure less than 130\/85 I10 Qasim Cason DO, FACP [address], [place] [id number] 05/10/2023 Qasim Cason DO, [facility] [address], [place] [id number] 05/14/2023 Qasim Cason Essential hypertension with goal blood pressure less than 130\/85 I10 Qasim Cason DO, FACP [address], [place] [id number] 05/22/2023 Qasim Cason Reactive depression F32.9 Qasim Cason DO, [facility] [address], [place] [id number] 06/07/2023 Qasim Cason Reactive depression F32.9 Qasim Cason DO, [facility] [address], [place] [id number] 06/12/2023 Qasim Cason Reactive depression F32.9 Qasim Cason DO, [facility] [address], [place] [id number] 07/18/2023 Qasim Cason DO, [facility] [address], [place] [id number] 09/02/2023 Qasim Cason DO, [facility] [address], [place] [id number] 09/16/2023 Qasim Cason DO, [facility] [address], [place] [id number] 01/02/2023 Qasim Cason DO, [facility] [address], [place] [id number] 12/28/2022 Qasim Cason Functional diarrhea K59.1 ; Atrial flutter, unspecified type I48.92 ; Essential hypertension with goal blood pressure less than 130\/85 I10 ; Vitamin D deficiency E55.9 and Reactive depression F32.9 Qasim Cason DO, [facility] [address], [place] [id number] 02/22/2023 Qasim Cason DO, [facility] [address], [place] [id number] 03/01/2023 Qasim Kamla ASSESSMENTS Encounter Date Diagnosis Assessment Notes Treatment [...] depression (ICD-10 - F32.9) PLAN OF TREATMENT Next Appt Details Provider Name:Qasim pagan, 09/24/2023 11:30:00 AM, [address] [place] [address], [id number], Insurance Providers Payer Name Payer Address Payer Phone Subscriber Number Group Number Insured Name Patient Relationship to Insured Coverage Start Date Coverage End Date [employer] [address] [address] [place] [phone] [id number] Diane Licona Self - patient is the insured MEDICARE [address] [place] [phone] [id number] Diane Licona Self - patient is the [...]
== END 2023-09-16 14:56 | disposition home or self-care (01) ==
PROVIDERS: PCP Internal Medicine; Visit Provider Physician Assistant
DX: L29.9 Pruritus, unspecified (principal); J06.9 Acute upper respiratory infection, unspecified
CPT/HCPCS: 99214

== ENCOUNTER 2023-09-16 14:44 | Outpatient (REF) | payer OTHER, SELFPAY ==
--- NOTE | ~2023-09-16 | XR_ITS ---
EXAMINATION: XR CHEST CLINICAL INFORMATION: Cough COMPARISON: Chest x-ray on 06/15/2021 TECHNIQUE: 2 views of the chest were obtained. FINDINGS: vascularity. LUNGS: Lungs are clear. No pneumothorax is seen. BONES: Bony skeleton is intact. There is marked lower thoracic dextroscoliosis. XR/XR chest 2V IMPRESSION: 1. Unchanged no radiographic signs of acute cardiopulmonary process. 2. Unchanged marked lower thoracic dextroscoliosis.
== END 2023-09-16 14:45 | disposition home or self-care (01) ==
LOC: HO.HMGCX 14:44
PROVIDERS: PCP Internal Medicine; Visit Provider Physician Assistant
DX: R05.9 Cough, unspecified (principal)
CPT/HCPCS: 71046

== ENCOUNTER 2023-09-16 14:46 | Outpatient (REF) | payer OTHER, SELFPAY ==
[2023-09-16 16:40] LABS: Influenza A PCR NEGATIVE (Negative); Influenza B PCR NEGATIVE (Negative); Resp Syncy Virus RNA Qual PCR NEGATIVE (Negative); SARS COV2 PCR INHOUSE NEGATIVE (Negative)
== END 2023-09-16 14:47 | disposition home or self-care (01) ==
LOC: HO.LAB 14:46
PROVIDERS: Visit Provider Physician Assistant
DX: J06.9 Acute upper respiratory infection, unspecified (principal)
CPT/HCPCS: 0241U

== ENCOUNTER 2023-11-14 10:13 | Outpatient (REF) | payer OTHER, SELFPAY ==
[2023-11-14 13:28] LABS: MANUAL DIFF FLAG NO
[2023-11-14 13:31] LABS: Appearance Urine Cloudy; Color Urine Yellow; Glucose Urine UA Negative (Negative); Leukocyte Esterase Urine Moderate (2+) (Negative); Nitrite Urine Negative (Negative); PH 5.5 (5.0-9.0); UMIC TRIGGER UA YES; Urine Blood Negative (Negative); Urine Ketones Negative (Negative); Urine Protein Negative (Neg-Trace)
[2023-11-14 13:42] LABS: Basophils Absolute Auto 0.1 X10*3/uL (0.0-0.2); Basophils Percent Auto 0.9 % (0-2); Eosinophils Absolute Auto 0.2 X10*3/uL (0.0-0.4); Eosinophils Percent Auto 2.2 % (0-4); Hematocrit 44.7 % (37.0-47.0); Hemoglobin 14.5 g/dl (12.0-16.0); Imm Gran Abs Auto 0.04 X10*3/uL (0.00-0.03); Imm Gran Pct Auto 0.5 % (0.0-0.4); Lymphocytes Absolute Auto 2.7 X10*3/uL (1.2-4.9); Lymphocytes Percent Auto 30.9 % (20-40); Mean Corpuscular HGB Conc 32.4 g/dl (31.0-35.0); Mean Corpuscular Hemoglobin 28.2 pg (27.0-33.0); Mean Corpuscular Volume 86.8 fL (80.0-98.0); Mean Platelet Volume 10.7 fL (9.4-12.3); Monocytes Absolute Auto 0.6 X10*3/uL (0.1-1.2); Monocytes Percent Auto 6.6 % (2-11); Neutrophils Absolute Auto 5.1 x10*3/uL (2.0-8.3); Neutrophils Percent Auto 58.9 % (45-73); Platelet Count 204 X10*3/uL (160-400); Red Blood Count 5.15 X10*6/uL (4.20-5.50); White Blood Count 8.6 X10*3/uL (4.8-10.8)
[2023-11-14 13:45] LABS: Bacteria Urine None Seen (None Seen); Calcium Oxalate Crystals Urine Present; RBC Urine 0-2 /HPF (0-2)
[2023-11-14 14:14] LABS: Alanine Aminotransferase 19 U/L (0-31); Albumin Level 3.9 g/dL (3.5-5.0); Alkaline Phosphatase 130 U/L (39-117); Anion Gap 13 (12-20); Aspartate Amino Transferase 18 U/L (5-31); Bilirubin Total 0.5 mg/dL (0.0-1.0); Blood Urea Nitrogen 14 mg/dL (9-16); Calcium 9.5 mg/dL (8.4-10.2); Carbon Dioxide 26 mmol/L (22-29); Chloride 106 mmol/L (96-108); Estimated Glomerular Filt Rate > 60; Glucose Random 119 mg/dL (60-115); Potassium 4.1 mmol/L (3.3-5.1); Sodium 141 mmol/L (135-145); Thyroid Stimulating Hormone 1.24 uIU/mL (0.32-4.0); Total Protein 6.8 g/dL (6.5-8.0)
== END 2023-11-14 10:14 | disposition home or self-care (01) ==
LOC: HO.HMGCLDS 10:13
PROVIDERS: PCP Internal Medicine; Visit Provider Internal Medicine
DX: I10 Essential (primary) hypertension (principal); I48.92 Unspecified atrial flutter; R06.00 Dyspnea, unspecified; E55.9 Vitamin D deficiency, unspecified; F32.9 Major depressive disorder, single episode, unspecified
CPT/HCPCS: 36415; 80053; 81001; 84443; 85025; 87086

== ENCOUNTER 2024-04-29 09:37 | Outpatient (AMB) | payer OTHER, SELFPAY ==
--- NOTE | 2024-04-29 09:51 | A.OFFPC_ITS ---
Vital Signs 04/29/24 09:59 Height 5 ft 3.25 in Weight 166 lb BMI 29.2 BP 152/40 H Blood Pressure Location Rt brachial Pulse 89 Pulse Source Pulse Oximeter Temp 97.0 F Pulse Oximetry (%) 97 Intake Visit Reasons: follow up Intake Note: started over the weekend not feeling well did not eat all day yesterday threw up last night feels a pressure at the top of the stomach feels like she wants to throw up but cant. Allergies Penicillins Allergy (Intermediate, Verified 04/29/24 10:53) HIVES naproxen [Aleve] Allergy (Unknown, Verified 04/29/24 10:53) Swelling Medication List - Last Reconciled 04/29/24 by Nano Puente PA-C albuterol sulfate 90 mcg/actuation 2 puffs inhalation Q6H PRN apixaban (Eliquis) 5 mg PO BID cholecalciferol (vitamin D3) 50 mcg PO DAILY lisinopril 10 mg PO DAILY metoprolol succinate ER 50 mg PO DAILY venlafaxine ER mg PO BID HPI HPI Comments History of Present Illness Details This is a 83-year-old female with a past medical history of hypertension, paroxysmal atrial fibrillation, history of restrictive lung disease with chronic shortness of breath on exertion, insomnia, spinal stenosis who is presenting to the primary care clinic for regular follow-up exam. Although patient reports she is not feeling well for the past 2 days especially since last night. She reports she has been very nauseated and has been vomiting since last night. She has an epigastric abdominal pain that does not go away. She denies any active chest pain. Does report subjective fevers and chills. She denies any dizziness, worsening shortness of breath, cough or nasal congestion, black or bloody stools, back or flank pain, dysuria hematuria, recent falls or trauma, recent sick contacts or travel or any other symptoms complaints or concerns. Reports that she has a history of appendectomy. She is at bedside with her friend Alexandra who accompanied her here. 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 Mother No problems noted. Social History Alcohol intake: current Alcohol intake frequency: holidays/special occasions only Patient Tobacco Use Status: Never used Tobacco Physical exam (Primary Care) Vital Signs: Last Vital Signs Temp 97.0 F 04/29/24 09:59 Pulse 89 04/29/24 09:59 BP 152/40 H 04/29/24 09:59 Pulse Ox 97 04/29/24 09:59 Care Plan Goal for BP management: 130/80 BMI result Body Mass Index 29.2 BMI Assessment/Plan discussion: High BMI High, discussed plan: lifestyle, weight reduction, dietary, physical activity and alcohol moderation Tobacco/Smoking Status: Tobacco use Status Patient Tobacco Use Status Never used Tobacco 04/29/24 09:53 Const Other: Appearance: Alert. Oriented X3. No acute distress. Head: Normal external exam. Normocephalic. Atraumatic. Eyes: Conjunctiva and sclera normal. Eyelids normal. ENT: MMM. Normal voice. Neck: Normal inspection. Neck supple. FROM. No adenopathy. Thyroid Normal. No meningeal signs. No neck mass noted. CVS: Normal heart rate and rhythm. Heart sound normal. Pulses normal throughout. No murmurs/rales/gallops. Respiratory: No respiratory distress. Painless inspiration. Breath sounds normal. No wheezes/rales/rhonchi noted. Chest nontender. No crepitus is noted. No accessory muscle usage noted or decreased air movement noted. No signs of trauma. Abdomen: Soft and moderate tenderness to the epigastric area. Nondistended. No guarding. No rigidity. Bowel sounds normal in all 4 quadrants. No distention noted. No organomegaly noted. No visible injury noted. + rebound tenderness. Back: No CVA tenderness is noted. Full range of motion noted. Skin: Skin warm and dry. Normal skin color. Normal skin turgor. No rashes/lesions/lacerations noted. Extremities: No lower extremity edema. No calf tenderness is noted. Extremiti es exhibit normal range of motion and nontender. Neuro: Oriented X 3. Moving all extremities. Normal steady gait. No focal neuro deficits noted. Vascular: + radial pulses b/l. Normal cap refill. No cyanosis noted. 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 She is declining ambulance she is adamant that her friend will bring her due to she does not want to have a ambulance bill. Patient otherwise to continue taking her lisinopril 10 mg daily, metoprolol 50 mg daily. Condition is chronic and stable continue to monitor. (2) Paroxysmal atrial fibrillation: Code(s): I48.0 - Paroxysmal atrial fibrillation Category: Medical Plan: Rate controlled at this time. Patient to continue Eliquis 5 mg b.i.d.. Condition is chronic and stable will continue to monitor (3) SOB (shortness of breath) on exertion: Comment: The dyspnea on exertion, is secondary to restrictive pulmonary disorder and and not any COPD . Advised to lose another 5-10 lb of weight. Also keep on doing deep breathing exercises. Code(s): R06.02 - Shortness of breath Category: Medical Plan: Condition is chronic and stable will continue to monitor (4) Restrictive lung disease: Comment: As per pulmonary function test there was evidence of moderately severe restrictive pulmonary disorder. The results of PFT were explained to her again. FVC 64%, FEV1 68%, FEF 25-75 81% , DLCO 60% Tx: Losing 5-10 lb of weight would be helpful. Instructed to do deep breathing exercises 3 times a day. * Explained that use of any bronchodilators or steroids would not be helpful. Code(s): J98.4 - Other disorders of lung Category: Medical Plan: Condition is chronic and stable will continue to monitor (5) Depression: Code(s): F32.A - Depression, unspecified Category: Medical Plan: Patient currently on Venlafaxine. Condition is chronic and stable continue to monitor. 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: Code(s): H26.229 - Cataract secondary to ocular disorders (degenerative) (inflammatory), unspecified eye Category: Medical Plan: Condition is chronic and stable will continue to monitor (7) Spinal stenosis: Code(s): M48.00 - Spinal stenosis, site unspecified Category: Medical Plan: Condition is chronic and stable will continue to monitor (8) Insomnia: Code(s): G47.00 - Insomnia, unspecified Category: Medical Plan: Condition is chronic and stable will continue to monitor (9) Nausea with vomiting, unspecified: Code(s): R11.2 - Nausea with vomiting, unspecified Category: Medical Plan: Patient with new onset nausea and vomiting with epigastric abdominal pain concerned for acute cholecystitis, acute pancreatitis, influenza, ACS, dissection. I discussed ambulance ride to the emergency department although patient adamantly refused and would like her friend to bring her who is at bedside. I called [facility] Emergency Department and I spoke to the nurse Zimmerman and she understands that the patient will be going via private car. We did not have any EKG available at this clinic at this time therefore unable to performed. Otherwise the rest of the patient's vitals were stable. Patient understands to go immediately to the emergency department her friend at bedside understands this plan. Patient to follow-up with us in 1 week. (10) Epigastric abdominal pain: Code(s): R10.13 - Epigastric pain Category: Medical Plan: see above Plan Patient with new onset nausea and vomiting with epigastric abdominal pain concerned for acute cholecystitis, acute pancreatitis, influenza, ACS, dissection. I discussed ambulance ride to the emergency department although patient adamantly refused and would like her friend to bring her who is at bedside. I called [facility] Emergency Department and I spoke to the nurse Zimmerman and she understands that the patient will be going via private car. We did not have any EKG available at this clinic at this time therefore unable to performed. Otherwise the rest of the patient's vitals were stable. Patient understands to go immediately to the emergency department her friend at bedside understands this plan. Patient to follow-up with us in 1 week.
--- OUTSIDE RECORDS SUMMARY | 2024-04-29 09:55 | XMS_ITS ---
Author Organization Qasim Cason DO, FACP Address [address], [place] [id number] Care Team Providers Care Clinical Nursing Instructor Name Role Phone Qasim Cason Primary Care Provider ALLERGIES Allergen (clinical drug ingredient) Drug/Non Drug Allergy documented on EMR Reaction Allergy Type Onset Date Status penicillin V Penicillin V Potassium urticaria Drug Allergy Active naproxen Naprosyn anaphylaxis Drug Allergy Activ e REASON FOR VISIT follow-up after Emergency Room visit MEDICATIONS Medication SIG (Take, Route, Frequency, Duration) Notes Start Date End Date Status Eliquis 5 MG 1 tablet Orally Twic e a day Active Metoprolol Succinate ER 50 mg 1 tablet Orally Once a day Active Vitamin D 50 MCG (1999) 1 tablet Oral ly Once a day 09/08/2021 Active Venlafaxine HCl ER 75 MG 2 capsules with food Orally Once a day Active Lisinopril 10 MG 1 tablet Orally Once a day Active SOCIAL HISTORY Tobacco Use: Social History Observation [...] Never (0 point) Points 1 Interpretation Negative VITAL SIGNS BMI 29.05 kg/m2 09/24/2023 Blood pressure systolic 132 mm Hg 09/24/19 24 Blood pressure diastolic 70 mm Hg 024 Height 63 in 09/24/2023 Weight 164 lbs 09/24/2023 Encounters Encounter Location Date Provider Diagnosis Qasim Cason , [address] [id number] 09/24/2023 Qasim Cason Essential hypertension with goal blood pressure less than 130\/85 I10 ; Atrial flutter, unspecified type I48.92 ; GALLEGOS (dyspnea on exertion) R06.00 ; Vitamin D deficiency E55.9 and Reactive depression F32.9 ASSESSMENTS Encounter Date Diagnosis Assessment Notes Treatment Notes Treatment Clinical Notes 09/24/2023 Essential hypertension with goal blood pressure less than 130\/85 (ICD-10 - I10) 09/24/2023 Atrial flutter, unspecified type (ICD-10 - I48.92) 09/24/2023 GALLEGOS (dyspnea on exertion) (ICD-10 - R06.00) 09/24/2023 Vitamin D deficiency (ICD-10 - E55.9) 09/24/2023 Reactive depression (ICD-10 - F32.9) PLAN OF TREATMENT Medication Medication Name Sig Start Date Stop Date Notes Eliquis 5 MG 1 tablet Orally Twice a day Metoprolol Succinate ER 50 mg 1 tablet Orally Once a day Vitamin D 50 MCG (1999 [place]) 1 tablet Orally Once a day 03/2021 Venlafaxine HCl ER 75 MG 2 capsules with food Orally Once a day Lisinopril 10 MG 1 tablet Orally Once a day Pending Test Test Name Order Date XR chest 2V 09/24/2023 Next Appt Details Follow Up: 2 Months, Reason: follow up visit,review lab work Progress Notes * Examination Category Sub-Category Detail Notes General Examination GENERAL APPEARANCE: in no ac kristen distress, well developed, well nourished HEAD: normocephalic, atrau matic HEART: no murmurs, regular rate and rhythm, S1, S2 normal LUNGS: clear to auscultatio n bilaterally ABDOMEN: normal, bowel sounds present, soft, nontender, nondistended SKIN: warm and dry EXTREMITIES: no edema PSYCH: alert, oriented, cog nitive function intact
--- OUTSIDE RECORDS SUMMARY | 2024-04-29 09:55 | XMS_ITS ---
Author Organization Qasim Cason DO, [facility] Address [address], [place] [id number] Care Team Providers Care Court Collections Officer Name Role Phone Qasim Cason Primary Care Provider REASON FOR VISIT Refills MEDICATIONS Medication SIG (Take, Route, Frequency, Duration) Notes Start Date End Date Status Eliquis 5 MG 1 tablet Orally Twice a day for 90 days Active Encounters Encounter Location Date Provider Diagnosis Qasim Cason DO, [facility] [address], [place] [phone] 2023 Qasim Cason Atrial flutter, unspecified type I48.92 ASSESSMENTS Encounter Date Diagnosis Assessment Notes Treatment Notes Treatment Clinical Notes 2023 Atrial flutter, unspecified type (ICD-10 - I48.92) PLAN OF TREATMENT Medication Medication Name Sig Start Date Stop Date Notes Eliquis 5 MG 1 tablet Orally Twice a day for 90 days
--- OUTSIDE RECORDS SUMMARY | 2024-04-29 09:55 | XMS_ITS ---
Author Organization Qasim Cason DO, FACP Address [address] [place], [place] [id number] Care Team Providers Care Pantry Worker Name Role Phone Qasim Cason Primary Care Provider ALLERGIES Allergen (clinical drug ingredient) Drug/Non Drug Allergy documented on EMR Reaction Allergy Type Onset Date Status penicillin V Penicillin V Potassium urticaria Drug Allergy Active naproxen Naprosyn anaphylaxis Drug Allergy Activ e REASON FOR VISIT 2 month f/u, Follow up hypertension, Atrial flutter, unspecified type MEDICATIONS Medication SIG (Take, Route, Frequency, Duration) Notes Start Date End Date Status Vitamin D 50 MCG (1999) 1 tablet Oral ly Once a day 09/08/2021 Active Venlafaxine HCl ER 75 MG 2 capsules with food Orally Once a day Active Eliquis 5 MG 1 tablet Orally Twic e a day Active Metoprolol Succinate ER 50 mg 1 tablet Orally Once a day Active Lisinopril 10 [...] Points 1 Interpretation Negative VITAL SIGNS BMI 30.29 kg/m2 11/26/2023 Blood pressure systolic 126 mm Hg 11/26/19 24 Blood pressure diastolic 72 mm Hg 024 Height 63 in 11/26/2023 Weight 171 lbs 11/26/2023 Encounters Encounter Location Date Provider Diagnosis Qasim Cason , [address] [phone] 11/26/2023 Qasim Cason Essential hypertension with goal blood pressure less than 130\/85 I10 ; Atrial flutter, unspecified type I48.92 ; Vitamin D deficiency E55.9 and Reactive depression F32.9 ASSESSMENTS Encounter Date Diagnosis Assessment Notes Treatment Notes Treatment Clinical Notes 11/26/2023 Essential hypertension with goal blood pressure less than 130\/85 (ICD-10 - I10) 11/26/2023 Atrial flutter, unspecified type (ICD-10 - I48.92) 11/26/2023 Vitamin D deficiency (ICD-10 - E55.9) 11/26/2023 Reactive depression (ICD-10 - F32.9) PLAN OF TREATMENT Medication Medication Name Sig Start Date Stop Date Notes Vitamin D 50 MCG (1999 UT) 1 tablet Orally Once a day 03/2021 Venlafaxine HCl ER 75 MG 2 capsules with food Orally Once a day Eliquis 5 MG 1 tablet Orally Twice a day Metoprolol Succinate ER 50 mg 1 tablet Orally Once a day Lisinopril 10 MG 1 tablet Orally Once a day Next Appt Details Follow Up: 6 Months, Reason: follow up visit Progress Notes * Examination Category Sub-Category Detail [...]
[2024-04-29 09:59] VITALS: BP 152/40; PULSE 89; TEMP 36.1; O2SAT 97; BMI 29.2
== END 2024-04-29 10:37 | disposition home or self-care (01) ==
LOC: HO.HMCSH 09:37
PROVIDERS: PCP Internal Medicine; Visit Provider Physician Assistant Medical
DX: I10 Essential (primary) hypertension (principal); I48.0 Paroxysmal atrial fibrillation; R06.02 Shortness of breath; J98.4 Other disorders of lung; F32.A Depression, unspecified; H26.2 Complicated cataract; M48.00 Spinal stenosis, site unspecified; G47.00 Insomnia, unspecified; R11.2 Nausea with vomiting, unspecified; R10.13 Epigastric pain

== ENCOUNTER 2024-04-29 10:35 | Inpatient (IN) | payer MEDICARE, SELFPAY ==
--- NOTE | ~2024-04-29 | US_ITS ---
CLINICAL HISTORY: RUQ pain, vomiting Limited abdomen ultrasound. Comparison CT 09/01/2023. Findings: The gallbladder is normal. No cholelithiasis or wall thickening is identified. No pericholecystic fluid is seen. Common bile duct 3 mm. Impression: Normal gallbladder. This document has been electronically signed by: Ricardo Alejo MD on 04/29/2024 18:39:45
--- NOTE | ~2024-04-29 | CT_ITS ---
CLINICAL HISTORY: severe epigastric pain CT of the abdomen and pelvis utilizing intravenous contrast. Comparison 09/01/2023. Findings: There is fatty infiltration of the liver. The gallbladder is unremarkable. There is mild dilatation of the common bile duct measuring 10 mm similar to previous. No obstructing lesion is seen and this may be incidental. There is no hydronephrosis. The spleen and pancreas are unremarkable. No abdominal aortic aneurysm. No diverticulitis is identified. The appendix is not definitely seen. There is no bowel obstruction. There is mild nonspecific colonic wall thickening. Small umbilical hernia. There is diffuse bladder wall thickening suspicious for cystitis. There is a small collection of gas in the bladder. Impression: No diverticulitis or bowel obstruction. Bladder wall thickening suspicious for cystitis. There is a small collection of gas in the bladder of uncertain etiology. The endometrium is thickened measuring 15 mm consider ultrasound. Mild colonic wall thickening is likely related to incomplete distention. Mild colitis is technically a possibility. Other findings as above. This document has been electronically signed by: Ricardo Alejo MD on 04/29/2024 20:06:12
[2024-04-29 11:05] VITALS: BP 171/86; PULSE 93; RESP 16; TEMP 36.6; O2SAT 96; BMI 29.1
--- NOTE | 2024-04-29 11:05 | ED.GENADULT ---
HPI - General Adult General Chief complaint: Nausea/Vomiting/Diarrhea Stated complaint: Vomiting, Weakness Time Seen by Provider: 04/29/24 15:46 Source: patient and old records reviewed Mode of arrival: ambulatory Limitations: no limitations History of Present Illness ED Provider: CALIN PARKS narrative: 83 yo female with PMH of depression, URI, cataracts, HTN, PAF on eliquis, restrictive lung disease who notes on Saturday she started to have RUQ pain and not feel well - she then notes she has not been able to eat or drink and has n/v with RUQ pain still. She has had appendectomy and oophorectomy in the past. She denies fevers. She denies travel, sick contacts, food exposures. She was referred to come to ED by her doctor. MD complaint: RUQ abdominal pain n/v Onset (ago): day(s) (Saturday) Location: abdomen Radiation: non-radiation Severity: moderate Quality: aching and constant Pain Consistency: constant Relieving factors: none Exacerbating factors: movement Associated symptoms: loss of appetite, malaise and nausea/vomiting Treatments prior to arrival: none Related Data Home Medications ?Medication ?Instructions ?Recorded ?Confirmed apixaban 5 mg tablet (Eliquis) 5 mg PO BID 04/12/20 04/29/24 cholecalciferol (vitamin D3) 25 50 mcg PO DAILY 01/25/22 04/29/24 mcg (1,000 unit) capsule lisinopril 10 mg tablet 10 mg PO DAILY 09/16/23 04/29/24 venlafaxine 75 mg capsule,extended mg PO BID 09/16/23 04/29/24 release 24 hr Previous Rx's ?Medication ?Instructions ?Recorded albuterol sulfate 90 mcg/actuation 2 puff inhalation Q6H PRN 09/16/23 aerosol inhaler shortness of breath or wheezing or cough #8.5 grams metoprolol succinate 50 mg 50 mg PO DAILY #90 tabs 03/23/24 tablet,extended release 24 hr Allergies Allergy/AdvReac Type Severity Reaction Status Date / Time Penicillins Allergy Intermediate HIVES Verified 04/29/24 11:09 naproxen [Aleve] Allergy Unknown Swelling Verified 04/29/24 11:09 Review of Systems Review of Systems: Constitutional : No Weight loss, No Fever, No Chills ENT/Mouth : No sore throat, No Rhinorrhea Eyes: No Swelling, No Redness Cardiovascular : No Chest Pain, No SOB, NoEdema Respiratory : No Cough, No Sputum, No Wheezing Gastrointestinal : Positive Nausea, Positive Vomiting, no Diarrhea, positive abdominal Pain, No Hematochezia, No Melena Genitourinary : No Dysuria, No Urinary Frequency, No Hematuria, No Urgency Musculoskeletal : No joint pain, No Myalgias, No Joint Swelling Skin : No Skin Lesions, No rash Neuro : No Weakness, No Numbness, No Dizziness, No Headache Psych : No Anxiety/Panic, No Depression All other systems reviewed and are negative. [facility] Past Medical History Attestation statement: The following information was validated with the patient. 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 Mother No problems noted. Social History Social History Alcohol intake: current Alcohol intake frequency: holidays/special occasions only Patient Tobacco Use Status: Never used Tobacco Advance Directives: Yes Advance Directives on File: Yes Advance Directives Date on File: 09/05/23 Physical Exam ED Vital Signs: Vital Signs - 24 hr 04/29/24 11:05 04/29/24 16:03 04/29/24 20:29 Temperature 97.9 F 98.0 F 98.4 F Pulse Rate 93 106 H Respiratory Rate 16 16 Blood Pressure 171/86 H 142/90 H Pulse Oximetry 96 97 Oxygen Delivery Method Room Air Room Air BMI result Body Mass Index 29.1 Appearance: Alert. Oriented X3. No acute distress. Eyes: Pupils equal, round and reactive to light. ENT: Pharynx normal. Neck: Normal inspection. Neck supple. CVS: irregular heart rate and rhythm. Pulses normal. Respiratory: No respiratory distress. Breath sounds normal. Abdomen: Soft and moderate RUQ pain + king's sign Skin: Skin warm and dry. Normal skin color. Normal skin turgor. Extremities: No lower extremity edema. No calf ttp Neuro: Oriented X 3. No motor deficit. No sensory deficit. CN2-12 intact Course Course Course Narrative: RME, this is a rapid medical exam performed by Hasmukh Olmos please refer to primary provider for complete H&P- 83-year-old female presents for evaluation decreased oral intake. She reports nausea and vomiting. Denies any fevers, chills, cough, shortness of breath. Plan for labs and viral testing. Reevaluation(s) Reevaluation #1: weak and not tolerating PO here will admit for further management Medications Administered Discontinued Medications Generic Name Dose Route Start Last Admin Trade Name Freq PRN Reason Stop Dose Admin Al Hydroxide/Mg Hydroxide 15 ml 04/29/24 18:49 04/29/24 20:26 Magnesium Hydrox/Alum Hydrox 30 Ml Oral.Susp PO 04/29/24 18:50 15 ml ONCE ONE Administration Lactated Ringer's 1,000 mls @ 999 mls/hr 04/29/24 15:56 04/29/24 17:21 Lr IV 04/29/24 16:56 Infused .Q1H1M ONE Infusion Iohexol 85 ml 04/29/24 19:06 04/29/24 19:07 Iohexol 350 Mg/Ml 100 Ml Infus..Btl IV 04/29/24 19:07 85 ml ONCE ONE Administration Lidocaine HCl 15 ml 04/29/24 18:49 04/29/24 20:26 Lidocaine Hcl Viscous 2 % 15 Ml Solution MUCOUS MEM 04/29/24 18:50 15 ml ONCE ONE Administration Morphine Sulfate 4 mg 04/29/24 15:56 04/29/24 16:21 Morphine Sulfate 4 Mg/Ml Cartridge IVPUSH 04/29/24 15:57 Not Given ONCE ONE Protocol Ondansetron HCl 4 mg 04/29/24 15:56 04/29/24 16:20 Ondansetron Hcl 4 Mg/2 Ml Vial IVPUSH 04/29/24 15:57 4 mg ONCE ONE Administration Medical Decision Making Medical Decision Making MDM Narrative: 83 yo female with PMH of depression, URI, cataracts, HTN, PAF on eliquis, restrictive lung disease now here with c/o RUQ pain n/v no overt fevers at home she is not able to take her medications. She states she denies known exposures or sick contacts. At this time given her complaint and age I am going to obtain basic labs, start US to evaluate gallbladder, IVF and IV morphine/zofran for pain. Differential Diagnosis Differential Diagnoses: The differential diagnosis associated with the presentation includes biliary colic, dehydatrion, viral syndrome, atypical ACS less likely Admission/Observation Consideration of admission/observation: Escalation of care including admission/observation considered infection suspected 842pm - started on lactic acid, cultures, IV ceftriaxone not tolerating PO will need admission for vomiting/emphysematous cystitis Consult Healthcare Provider Management of the patient was discussed with: Hospitalist (will admit) Lab Data MDM Lab Attestation statement: I reviewed the patient's lab results. 04/29/24 11:33 04/29/24 11:33 Labs: Lab Results 04/29/24 04/29/24 Range/Units 11:33 20:30 WBC 10.8 (4.8-10.8) X10*3/uL RBC 5.52 H (4.20-5.50) X10*6/uL Hgb 15.5 (12.0-16.0) g/dl Hct 47.9 H (37.0-47.0) % MCV 86.8 (80.0-98.0) fL MCH 28.1 (27.0-33.0) pg MCHC 32.4 (31.0-35.0) g/dl RDW 12.8 (11.0-16.0) % Plt Count 205 (160-400) X10*3/uL MPV 10.4 (9.4-12.3) fL Immature Gran % (Auto) 0.4 (0.0-0.4) % Neut % (Auto) 76.4 H (45-73) % Lymph % (Auto) 17.2 L (20-40) % Fleming % (Auto) 5.1 (2-11) % Eos % (Auto) 0.3 (0-4) % Baso % (Auto) 0.6 (0-2) % Lymph # (Auto) 1.9 (1.2-4.9) X10*3/uL Fleming # (Auto) 0.6 (0.1-1.2) X10*3/uL Eos # (Auto) 0.0 (0.0-0.4) X10*3/uL Baso # (Auto) 0.1 (0.0-0.2) X10*3/uL Abs Immat Gran (auto) 0.04 H (0.00-0.03) X10*3/uL Absolute Neuts (auto) 8.3 (2.0-8.3) x10*3/uL Absolute Nucleated RBC 0.000 (0.0-0.012) X10*3/uL Nucleated RBC % (auto) 0.0 (0.0-0.2) /100WBC PT 13.4 H (10.9-12.4) SEC INR 1.2 H (0.9-1.1) Sodium 141 (135-145) mmol/L Potassium 3.6 (3.3-5.1) mmol/L Chloride 105 (96-108) mmol/L Carbon Dioxide 27 (22-29) mmol/L Anion Gap 13 (12-20) BUN 12 (9-16) mg/dL Creatinine 0.68 (0.5-1.4) mg/dL Estim Creat Clear Calc 60.5 Estimated GFR > 60 Random Glucose 143 H (60-115) mg/dL Calcium 9.4 (8.4-10.2) mg/dL Magnesium 2.2 (1.6-2.6) mg/dL Total Bilirubin 0.4 (0.0-1.0) mg/dL AST 27 (5-31) U/L ALT 19 (0-31) U/L Alkaline Phosphatase 133 H (39-117) U/L Troponin I High Sens < 2.7 (<3.5-17.0) ng/L Total Protein 7.5 (6.5-8.0) g/dL Albumin 4.1 (3.5-5.0) g/dL Lipase 13 (8-78) U/L Urine Color Yellow Urine Appearance Cloudy Urine pH 7.5 (5.0-9.0) Ur Specific [place] >= 1.030 H (1.005-1.025) Urine Protein Negative (Neg-Trace) mg/dL Urine Glucose (UA) Negative (Negative) mg/dL Urine Ketones Trace (Negative) mg/dL Urine Blood Trace H (Negative) Urine Nitrite Positive H (Negative) Ur Leukocyte Esterase Moderate (2+) H (Negative) Influenza Type A (PCR) NEGATIVE (Negative) Influenza Type B (PCR) NEGATIVE (Negative) RSV RNA Qual (PCR) NEGATIVE (Negative) SARS-CoV-2 RNA (RT-PCR) NEGATIVE (Negative) Independent Interpretation I performed an independent interpretation of an: EKG and Ultrasound Interpretation: Rate: 87 Rhythm: NSR [place]: left Normal P waves. Normal KELL. RBBB ST T wave : inverted t waves V1-V3, no ASHLY, nonspecific ST T wave changes lateral leads qTC: 471 prior studies: no sig change from prior The study has been interpreted contemporaneously by me. . Radiology Impression Discussion of test interpretation with radiology: I have reviewed the radiologist's reading. External Record Review External record reviewed: Outpatient record Discharge Plan Discharge Clinical Impression: Abdominal pain, epigastric, Emphysematous cystitis Nausea & vomiting Qualifiers: Vomiting type: unspecified Qualified Code(s): R11.2 - Nausea with vomiting, unspecified Patient Disposition: Admitted As Inpatient Print Language: Italian
--- NOTE | 2024-04-29 11:06 | ECG_ITS ---
Test Reason : weakness Blood Pressure : */* mmHG Vent. Rate : 87 BPM Atrial Rate : 87 BPM P-R Int : 196 ms QRS Dur : 148 ms QT Int : 392 ms P-R-T Axes : 77 -21 -11 degrees QTcB Int : 471 ms Normal sinus rhythm with sinus arrhythmia Right bundle branch block Inferior infarct , age undetermined Abnormal ECG When compared with ECG of 31-Aug-2023 21:31, No significant changes seen Referred By: Anthony Olmos Electronically Signed By: MARLENY BARRIGA
[2024-04-29 11:52] LABS: MANUAL DIFF FLAG NO
[2024-04-29 11:59] LABS: INTERNATIONAL NORM RATIO 1.2 (0.9-1.1); Prothrombin Time 13.4 SEC (10.9-12.4)
[2024-04-29 12:04] LABS: Basophils Absolute Auto 0.1 X10*3/uL (0.0-0.2); Basophils Percent Auto 0.6 % (0-2); Eosinophils Percent Auto 0.3 % (0-4); Hematocrit 47.9 % (37.0-47.0); Hemoglobin 15.5 g/dl (12.0-16.0); Imm Gran Abs Auto 0.04 X10*3/uL (0.00-0.03); Imm Gran Pct Auto 0.4 % (0.0-0.4); Lymphocytes Absolute Auto 1.9 X10*3/uL (1.2-4.9); Lymphocytes Percent Auto 17.2 % (20-40); Mean Corpuscular HGB Conc 32.4 g/dl (31.0-35.0); Mean Corpuscular Hemoglobin 28.1 pg (27.0-33.0); Mean Corpuscular Volume 86.8 fL (80.0-98.0); Mean Platelet Volume 10.4 fL (9.4-12.3); Monocytes Absolute Auto 0.6 X10*3/uL (0.1-1.2); Monocytes Percent Auto 5.1 % (2-11); Neutrophils Absolute Auto 8.3 x10*3/uL (2.0-8.3); Neutrophils Percent Auto 76.4 % (45-73); Platelet Count 205 X10*3/uL (160-400); Red Blood Count 5.52 X10*6/uL (4.20-5.50); Red Cell Distribution Width 12.8 % (11.0-16.0); White Blood Count 10.8 X10*3/uL (4.8-10.8)
[2024-04-29 12:10] LABS: Alanine Aminotransferase 19 U/L (0-31); Albumin Level 4.1 g/dL (3.5-5.0); Alkaline Phosphatase 133 U/L (39-117); Anion Gap 13 (12-20); Aspartate Amino Transferase 27 U/L (5-31); Bilirubin Total 0.4 mg/dL (0.0-1.0); Blood Urea Nitrogen 12 mg/dL (9-16); Calcium 9.4 mg/dL (8.4-10.2); Carbon Dioxide 27 mmol/L (22-29); Chloride 105 mmol/L (96-108); Creatinine Clr Calc Pharmacy 60.5; Estimated Glomerular Filt Rate > 60; Glucose Random 143 mg/dL (60-115); Lipase 13 U/L (8-78); Magnesium 2.2 mg/dL (1.6-2.6); Potassium 3.6 mmol/L (3.3-5.1); Sodium 141 mmol/L (135-145); Total Protein 7.5 g/dL (6.5-8.0)
[2024-04-29 13:03] LABS: Influenza A PCR NEGATIVE (Negative); Influenza B PCR NEGATIVE (Negative); Resp Syncy Virus RNA Qual PCR NEGATIVE (Negative); SARS COV2 PCR INHOUSE NEGATIVE (Negative)
[2024-04-29 16:03] VITALS: BP 142/90; PULSE 106; RESP 16; TEMP 36.7; O2SAT 97
--- OUTSIDE RECORDS SUMMARY | 2024-04-29 16:09 | XMS_ITS | Patient Health Record ---
Author Organization Qsaim Mckinney Kamla DO, FACP Address [address], [place] [id number] Care Team Providers Care Hoop Riveter Name Role Phone Qasim Cason Primary Care Provider ALLERGIES Allergen (clinical drug ingredient) Drug/Non Drug Allergy documented on EMR Reaction Allergy Type Onset Date Status penicillin V Penicillin V Potassium urticaria Drug Allergy Active naproxen Naprosyn anaphylaxis Drug Allergy Activ e RESULTS Component Value Reference Range Notes Complete Blood Count Auto Di ff Reviewed date:06/10/2023 02:00:26 PM Interpretation:Abnormal Performing Lab:[facility], [address] [place] [phone] Notes/Report: White Blood Count 11.4 4.8-10.8 X10*3/uL [...] NRBC Abs Auto 0.000 0.0-0.012 X10*3/uL Comprehensive [place]. Panel Fa st Reviewed date:06/10/2023 03:50:04 PM Interpretation:Abnormal Performing Lab:[facility], [address] [place] [phone] Notes/Report: Sodium 142 135-145 mmol/L Potassium 5.2 3.3-5.1 mmol/L Chloride 104 96-108 mmol/L Carbon Dioxide 31 22-29 mmol/L Anion Gap 12 12-20 Blood Urea Nitrogen 16 9-16 mg/dL Creatinine 0.71 0.5-1.4 mg/dL Estimated Glomerular Filt Rate > 60 NOTE: For -Danish individuals, multiply the result by 1.210. Chronic [...] Panel Reviewed date:06/10/2023 03:48:44 PM Interpretation:Normal Performing Lab:[facility], [address] [place] [phone] Notes/Report: Triglycerides 147 <150 mg/dL Desirable Triglyceride: [...] B12 Reviewed date:06/10/2023 03:48:44 PM Interpretation:Normal Performing Lab:[facility], [address] [place] [phone] Notes/Report: Vitamin B12 1079 200-900 pg/mL NORMAL 200-900 PG/ML INDETERMINATE 160-199 PG/ML DEFICIENT < 160 PG/ML Thyroid Stimulating Hormone Reviewed date:06/10/2023 03:48:44 PM Interpretation:Normal Performing Lab:[facility], [address] [place] [phone] Notes/Report: Thyroid Stimulating Hormone 0.93 0.32-4.0 uIU/mL TSH 3rd Generation ([facility]) XR chest 2V Reviewed date:09/16/2023 08:18:30 PM Interpretation:Nonacute Performing Lab: Notes/Report: [facility] Adult Primary [facility] [place] [address] XRay Report Signed Patient: Diane Licona MR#: [id number] : 1940 Acct:[id number] Age/Sex: 82 / F ADM Date: 09/16/23 Loc: HO.HMGCX Attending Dr: Rachael Thacker PA-C Ordering Physician: Rachael Thacker PA-C Date of Service: 09/16/23 Procedure(s): XR chest 2V Accession Number(s): [id number] cc: Rachael Thacker PA-C; Qasim Cason DO EXAMINATION: XR CHEST CLINICAL INFORMATION: Cough COMPARISON: Chest x-ray on 06/15/2021 TECHNIQUE: 2 views of the chest were obtained. FINDINGS: vascularity. LUNGS: Lungs are clear. No pneumothorax is seen. BONES: Bony skeleton is intact. There is marked lower thoracic dextroscoliosis. XR/XR chest 2V IMPRESSION: 1. Unchanged no radiographic signs of acute cardiopulmonary process. 2. Unchanged marked lower thoracic dextroscoliosis. Dictated By: Luisito Carlos Signed By: <Electronically signed by Luisito Carlos in OV> 09/16/23 1628 DD/ 1455 TD/TT: [employer]: Complete Blood Count Auto Di ff Reviewed date:11/14/2023 02:15:29 PM Interpretation:Normal Performing Lab:[facility], [address] [place] [phone] Notes/Report: White Blood Count 8.6 4.8-10.8 X10*3/uL Red Blood Count 5.15 4.20-5.50 X10*6/uL Hemoglobin 14.5 12.0-16.0 g/dl Hematocrit 44.7 37.0-47.0 % Mean Corpuscular Volume 86.8 80.0-98.0 fL Mean Corpuscular Hemoglobin 28.2 27.0-33.0 pg Mean Corpuscular HGB Conc 32.4 31.0-35.0 g/dl Red Cell Distribution Width 13.0 11.0-16.0 % Platelet Count 204 160-400 X10*3/uL Mean Platelet Volume 10.7 9.4-12.3 fL Neutrophils Percent Auto 58.9 45-73 % Imm Gran Pct Auto 0.5 0.0-0.4 % Lymphocytes Percent Auto 30.9 20-40 % Monocytes Percent Auto 6.6 2-11 % Eosinophils Percent Auto 2.2 0-4 % Basophils Percent Auto 0.9 0-2 % NRBC Pct Auto 0.0 0.0-0.2 /100WBC Neutrophils Absolute Auto 5.1 2.0-8.3 x10*3/u L Imm Gran Abs Auto 0.04 0.00-0.03 X10*3/uL Lymphocytes Absolute Auto 2.7 1.2-4.9 X10*3/u L Monocytes Absolute Auto 0.6 0.1-1.2 X10*3/uL Eosinophils Absolute Auto 0.2 0.0-0.4 X10*3/u L Basophils Absolute Auto 0.1 0.0-0.2 X10*3/uL NRBC Abs Auto 0.000 0.0-0.012 X10*3/uL Urinalysis and Microscopic Reviewed date:11/14/2023 02:15:29 PM Interpretation:Abnormal Performing Lab:[address] [phone] Notes/Report: Color Urine Yellow Appearance Urine Cloudy PH 5.5 5.0-9.0 Glucose Urine UA Negative Negative mg/dL Urine Blood Negative Negative Specific [place] - Urine 1.020 1.005-1.025 Urine Protein Negative Neg-Trace mg/dL Urine Ketones Negative Negative mg/dL Nitrite Urine Negative Negative Leukocyte Esterase Urine Moderate (2+) Negative RBC Urine 0-2 0-2 /HPF WBC Urine 6-10 0-5 /HPF Squamous Epithelial Cell Urine 6-10 0-2 /HPF Calcium Oxalate Crystals Urine Present Bacteria Urine None Seen None Seen Hyaline Casts Urine 3-5 0-2 /LPF Comprehensive Met. Panel Reviewed date:11/14/2023 02:19:05 PM Interpretation:Abnormal Performing Lab:[address] [phone] Notes/Report: Sodium 141 135-145 mmol/L Potassium 4.1 3.3-5.1 mmol/L Chloride 106 96-108 mmol/L Carbon Dioxide 26 22-29 mmol/L Anion Gap 13 12-20 Blood Urea Nitrogen 14 9-16 mg/dL Creatinine 0.70 0.5-1.4 mg/dL Estimated Glomerular Filt Rate > 60 NOTE: For -Danish individuals, multiply the result by 1.210. Chronic Kidney Disease: Estimated GFR < 60 mL/min/1.73m2 Severe Kidney Disease: Estimated GFR < 15 mL/min/1.73m2 Glucose Random 119 60-115 mg/dL Calcium 9.5 8.4-10.2 mg/dL Bilirubin Total 0.5 0.0-1.0 mg/dL Aspartate Amino Transferase 18 5-31 U/L Alanine Aminotransferase 19 0-31 U/L Total Protein 6.8 6.5-8.0 g/dL Albumin Level 3.9 3.5-5.0 g/dL Alkaline Phosphatase 130 39-117 U/L Thyroid Stimulating Hormone Reviewed date:11/14/2023 02:18:31 PM Interpretation:Normal Performing Lab:[facility], [address] [place] [phone] Notes/Report: Thyroid Stimulating Hormone 1.24 0.32-4.0 uIU/mL TSH 3rd Generation ([facility]) Urine Culture Reviewed date:11/15/2023 11:42:02 AM Interpretation:Abnormal Performing Lab:[facility], [address] [place] [phone] Notes/Report: Urine Culture Report Result Urine Culture 10,000 to 50,000 cfu/ml Urine Culture Mixed bacterial lorrie a characteristic of Urine Culture urogenital contamination. 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) Active confirmed 04077343 Problem Essential hypertension with goal blood pressure less than 130\/85 (I10) Active confirmed 76583508 Problem Memory loss (R41.3) Active confirmed 12356424 Problem Atrial flutter, unspecified type (I48.92) Active confirmed 7142992 Problem GALLEGOS (dyspnea on exertion) (R06.00) Active confirmed Dyspnea on exertion (41222443) Problem Thickened endometrium (R93.89) Active confirmed 270216511 VITAL SIGNS Blood pressure diastolic 72 mm Hg 11/26/2023 Height 63 in 11/26/2023 Blood pressure systolic 126 mm Hg 11/26/2023 Weight 171 lbs 11/26/2023 BMI 30.29 kg/m2 11/26/2023 Encounters Encounter Location Date Provider Diagnosis Qasim Cason DO, [facility] [address], [place] [id number] 05/07/2023 Qasim Cason Atrial flutter, unspecified type I48.92 ; Essential hypertension with goal blood pressure less than 130\/85 I10 ; Reactive depression F32.9 ; Vitamin D deficiency E55.9 and Memory loss R41.3 Qasim Cason DO, [facility] [address], [place] [id number] 08/07/2023 Qasim Cason DO, [facility] [address], [place] [id number] 09/03/2023 Qasim Cason DO, [facility] [address], [place] [id number] 11/26/2023 Qasim Cason Essential hypertension with goal blood pressure less than 130\/85 I10 ; Atrial flutter, unspecified type I48.92 ; Vitamin D deficiency E55.9 and Reactive depression F32.9 Qasim Cason DO, [facility] [address], [place] [id number] 09/24/2023 Qasim Cason Essential hypertension with goal blood pressure less than 130\/85 I10 ; Atrial flutter, unspecified type I48.92 ; GALLEGOS (dyspnea on exertion) R06.00 ; Vitamin D deficiency E55.9 and Reactive depression F32.9 Qasim Cason DO, [facility] [address], [place] [id number] 05/01/2023 Qasim Cason DO, [facility] [address], [place] [id number] 05/06/2023 Qasim Cason Essential hypertension with goal blood pressure less than 130\/85 I10 Qasim Cason DO, [facility] [address], [place] [id number] 05/10/2023 Qasim Cason DO, [facility] [address], [place] [id number] 05/14/2023 Qasim Cason Essential hypertension with goal blood pressure less than 130\/85 I10 Qasim Cason DO, [facility] [address], [place] [id number] 05/22/2023 Qasim Cason Reactive depression F32.9 Qasim Cason DO, [facility] [address], [place] [id number] 06/07/2023 Qasim Cason Reactive depression F32.9 Qasim Cason DO, FACP [address], [place] [id number] 06/12/2023 Qasim Cason Reactive depression F32.9 Qasim Cason DO, FACP [address], [place] [id number] 07/18/2023 Qasim Cason DO, [facility] [address], [place] [id number] 09/02/2023 Qasim Cason DO, [facility] [address], [place] [id number] 09/16/2023 Qasim Cason DO, [facility] [address], [place] [id number] 09/23/2023 Qasim Cason DO, [facility] [address], [place] [id number] 2023 Qasim Kamla Atrial flutter, unspecified type I48.92 ASSESSMENTS Encounter Date Diagnosis Assessment Notes Treatment Notes Treatment Clinical Notes 05/07/2023 Essential hypertension with goal blood pressure less than 130\/85 (ICD-10 - I10) 05/07/2023 Atrial flutter, unspecified type (ICD-10 - I48.92) 11/26/2023 Essential hypertension with goal blood pressure less than 130\/85 (ICD-10 - I10) 11/26/2023 Atrial flutter, unspecified type (ICD-10 - I48.92) 09/24/2023 Essential hypertension with goal blood pressure less than 130\/85 (ICD-10 - I10) 09/24/2023 Atrial flutter, unspecified type (ICD-10 - I48.92) 05/06/2023 Essential hypertension with goal blood pressure less than 130\/85 (ICD-10 - I10) 05/14/2023 Essential hypertension with goal blood pressure less than 130\/85 (ICD-10 - I10) 05/22/2023 Reactive depression (ICD-10 - F32.9) 06/07/2023 Reactive depression (ICD-10 - F32.9) 06/12/2023 Reactive depression (ICD-10 - F32.9) 2023 Atrial flutter, unspecified type (ICD-10 - I48.92) 05/07/2023 Reactive depression (ICD-10 - F32.9) C/O difficulty swallowing the capsules, would prefer a tablet 11/26/2023 Vitamin D deficiency (ICD-10 - E55.9) 09/24/2023 GALLEGOS (dyspnea on exertion) (ICD-10 - R06.00) 05/07/2023 Vitamin D deficiency (ICD-10 - E55.9) 11/26/2023 Reactive depression (ICD-10 - F32.9) 09/24/2023 Vitamin D deficiency (ICD-10 - E55.9) 05/07/2023 Memory loss (ICD-10 - R41.3) 09/24/2023 Reactive depression (ICD-10 - F32.9) PLAN OF TREATMENT Pending Test Test Name Order Date XR chest 2V 09/24/2023 Insurance Providers Payer Name Payer Address Payer Phone Subscriber Number Group Number Insured Name Patient Relationship to Insured Coverage Start Date Coverage End Date [employer] PLANS [address] [address] [place] [address] [id number] Diane Licona Self - patient is the insured MEDICARE [address] [place] [address] [id number] Diane Licona Self - patient is the [...]
[2024-04-29 16:16] LABS: Troponin-I High Sensitivity < 2.7 ng/L (<3.5-17.0)
[2024-04-29] MEDS: Lactated Ringers 1,000 ML 999 ML IV (16:20)
[2024-04-29] MEDS: ondansetron HCL 4 MG/2 ML VIAL IVPUSH (16:20)
[2024-04-29] MEDS: iohexoL 350 MG/ML 100 ML INFUS..BTL 85 ML IV (19:07)
[2024-04-29] MEDS: Magnesium Hydrox/Alum Hydrox 30 ML ORAL.SUSP 15 ML PO (20:26)
[2024-04-29] MEDS: Lidocaine HCl Viscous 2 % 15 ML SOLUTION MUCOUS MEM (20:26)
[2024-04-29 20:29] VITALS: TEMP 36.9
[2024-04-29 20:38] LABS: Appearance Urine Cloudy; Color Urine Yellow; Glucose Urine UA Negative (Negative); Leukocyte Esterase Urine Moderate (2+) (Negative); Nitrite Urine Positive (Negative); PH 7.5 (5.0-9.0); Specific Gravity - Urine >= 1.030 (1.005-1.025); UMIC TRIGGER UACC YES; Urine Blood Trace (Negative); Urine Ketones Trace mg/dL (Negative); Urine Protein Negative (Neg-Trace)
[2024-04-29 20:51] LABS: Bacteria Urine 4+ (None Seen); Hyaline Casts Urine 0-2 /LPF (0-2); RBC Urine 0-2 /HPF (0-2); Squamous Epithelial Cell Urine 0-2 /HPF (0-2); UACC Culture Trigger YES; WBC Urine >50 /HPF (0-5)
--- NOTE | 2024-04-29 21:14 | PHA.MEDREC ---
Addendum entered by Cheli Kc RPh 04/29/24 21:24: Med rec was reviewed by [facility]. Original Note: Pharmacy Consult ? Medication Reconciliation Pharmacy has completed the medication reconciliation. Spoke to patient to confirm med list. Patient was able to confirm all her medications and every thing patient stated matched recent claims. Except Venlafaxine ER 150 mg , last fill date was 05/23/23. patient states she get them filled through mail order
--- NOTE | 2024-04-29 21:42 | PM.IMHP ---
History of Present Illness Date of Service: 04/29/24 Attending physician on admission: dAa Owens Chief Complaint: upper abd pain, N/V Patient is an 83-year-old female with a past medical history significant for depression, recurrent UTIs, HTN, paroxysmal AFib on Eliquis and restrictive lung disease, who presented to the ED due to nausea, vomiting, upper abdominal pain and bladder pressure with urinary frequency. She reports that this has been occurring for the past 2-3 days. She denies any blood in the urine or burning with urination. Review of Systems Constitutional: Constitutional: Denies body ache(s), Denies chills, Denies fatigue, Denies fever(s) and Denies headache(s) Eyes: Eyes: Denies change in vision and Denies photophobia ENT: Denies headache(s), Denies nasal congestion, Denies nasal discharge and Denies sore throat Cardiovascular: Cardiovascular: Denies chest pain, Denies rapid heart rate, Denies leg edema, Denies lightheadedness and Denies dyspnea Respiratory: Respiratory: Denies chest congestion, Denies cough, Denies dyspnea and Denies wheezing Gastrointestinal: Gastrointestinal: Reports abdominal pain, Reports belching, Denies coffee ground emesis, Reports heartburn, Denies diarrhea, Reports nausea and Reports vomiting Genitourinary: Genitourinary: Reports as per HPI Musculoskeletal: Musculoskeletal: Denies back pain and Denies muscle cramps Integumentary/Breasts: Skin/Breast: Denies rash Neurologic: Denies confusion and Denies headache(s) Psychiatric: Psychiatric: Denies confusion Endocrine: Endocrine: Denies fatigue Hematologic/Lymphatic: Hematologic/Lymphatic: Denies easy bleeding and Denies easy bruising Allergic/Immunologic: Allergic/Immunologic: Denies wheezing [facility] [place] Medical History Functional diarrhea Tubular adenoma History of positive PPD Lumbar nerve root impingement Depression Tendinitis of right shoulder 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 Mother No problems noted. Surgical History History of right oophorectomy Hx of appendectomy Hx of cataract Social History Alcohol intake: current Alcohol intake frequency: holidays/special occasions only Patient Tobacco Use Status: Never used Tobacco Advance Directives: Yes Advance Directives on File: Yes Advance Directives Date on File: 09/05/23 Narrative: No smoking, alcohol or drug use Meds Allergies Allergy/AdvReac Type Severity Reaction Status Date / Time Penicillins Allergy Intermediate HIVES Verified 04/29/24 11:09 naproxen [Aleve] Allergy Unknown Swelling Verified 04/29/24 11:09 Active Medications: Current Medications Acetaminophen (Acetaminophen 325 Mg Tablet) 650 mg PO Q6H PRN PRN Reason: Pain, Mild 1-3,fever,headache Calcium Carbonate (Calcium Carbonate 750 Mg Tab.Chew) 750 mg PO Q4H PRN PRN Reason: Heartburn Magnesium Hydroxide (Milk Of Magnesia 30 Ml Oral.Susp) 30 ml PO DAILY PRN PRN Reason: Constipation Melatonin (Melatonin 3 Mg Tablet) 6 mg PO BEDTIME PRN PRN Reason: Insomnia Ondansetron HCl (Ondansetron Hcl 4 Mg/2 Ml Vial) 4 mg IVPUSH Q8H PRN PRN Reason: Nausea and Vomiting Sodium Chloride (0.9 % Sodium Chloride Flush 3 Ml Syringe) 3 ml IVFLUSH [facility] Medications ?Medication ?Instructions ?Recorded ?Confirmed ?Last Taken ?Type apixaban 5 mg tablet (Eliquis) 5 mg PO BID 04/12/20 04/29/24 04/27/24 History cholecalciferol (vitamin D3) 25 50 mcg PO DAILY 01/25/22 04/29/24 04/27/24 History mcg (1,000 unit) capsule lisinopril 10 mg tablet 10 mg PO DAILY 09/16/23 04/29/24 04/27/24 History venlafaxine 75 mg capsule,extended 150 mg PO DAILY 09/16/23 04/29/24 04/27/24 History release 24 hr metoprolol succinate 50 mg 50 mg PO BEDTIME 04/29/24 04/29/24 04/27/24 History tablet,extended release 24 hr Physical Exam Vital Signs and Narrative: Vital Signs: Last Vital Signs Temp 98.4 F 04/29/24 20:29 Pulse 106 H 04/29/24 16:03 Resp 16 04/29/24 16:03 BP 142/90 H 04/29/24 16:03 Pulse Ox 97 04/29/24 16:03 O2 Del Method Room Air 04/29/24 16:03 BMI result Body Mass Index 29.1 General: AOx3, no acute distress Resp: CTA bilaterally CVS: S1, S2, RRR GI: +BS, tener upper abd mostly in epigastric region, no distention Skin: Warm, dry Neuro: Cranial nerves II-XII grossly intact bilaterally. Motor grossly intact bilaterally Extremities: No LE edema Psych: Appropriate affect Const: General: No confusion Orientation/consciousness: No confusion Eyes: Direct Ophthalmoscopy: No photophobia Neuro: General: No confusion Results Labs 04/29/24 11:33 04/29/24 11:33 Labs: Laboratory Results - last 24 hr 04/29/24 04/29/24 11:33 20:30 MCV 86.8 MCH 28.1 MCHC 32.4 RDW 12.8 Plt Count 205 MPV 10.4 Immature Gran % (Auto) 0.4 Neut % (Auto) 76.4 H Lymph % (Auto) 17.2 L [place] % (Auto) 5.1 Eos % (Auto) 0.3 Baso % (Auto) 0.6 Lymph # (Auto) 1.9 [place] # (Auto) 0.6 Eos # (Auto) 0.0 Baso # (Auto) 0.1 Abs Immat Gran (auto) 0.04 H Absolute Neuts (auto) 8.3 Absolute Nucleated RBC 0.000 Nucleated RBC % (auto) 0.0 PT 13.4 H INR 1.2 H Anion Gap 13 Estim Creat Clear Calc 60.5 Estimated GFR > 60 Random Glucose 143 H Calcium 9.4 Magnesium 2.2 Total Bilirubin 0.4 AST 27 ALT 19 Alkaline Phosphatase 133 H Total Protein 7.5 Albumin 4.1 Lipase 13 Urine Color Yellow Urine Appearance Cloudy Urine pH 7.5 Ur Specific [place] >= 1.030 H Urine Protein Negative Urine Glucose (UA) Negative Urine Ketones Trace Urine Blood Trace H Urine Nitrite Positive H Ur Leukocyte Esterase Moderate (2+) H Urine RBC 0-2 Urine WBC >50 H Ur Squamous Epith Cells 0-2 Urine Bacteria 4+ Hyaline Casts 0-2 Influenza Type A (PCR) NEGATIVE Influenza Type B (PCR) NEGATIVE RSV RNA Qual (PCR) NEGATIVE SARS-CoV-2 RNA (RT-PCR) NEGATIVE Assessment and Plan (1) Emphysematous cystitis: Status: Acute (2) Intractable nausea and vomiting: Status: Acute Plan Patient is an 83-year-old female with a past medical history significant for depression, recurrent UTIs, HTN, paroxysmal AFib on Eliquis and restrictive lung disease, who presented to the ED due to nausea, vomiting, upper abdominal pain and bladder pressure with urinary frequency. Acute emphysematous cystitis with intractable nausea and vomiting - WBC 10.8, vital signs stable, no sepsis - UA positive, culture pending - abdominopelvic CT with bladder wall thickening suspicious for cystitis, small collection of gas in the bladder of uncertain etiology. Endometrium thickened measuring 15 mm, consider ultrasound. - Right upper quadrant ultrasound negative, LFTs normal - started on ceftriaxone in ED, continue - given 1L LR in ED - monitor CBC and BMP Paroxysmal AFib - EKG with NSR - continue home meds including Eliquis HTN - continue home meds Restrictive lung disease - continue home meds Depression - continue home meds Full code VTE prophylaxis: Eliquis Patient with acute emphysematous cystitis and intractable nausea/vomiting unable to tolerate p.o., requiring admission for at least 2 midnights stay for IV antibiotics and monitoring. Quality Stroke Does the patient have a stroke diagnosis?: No VTE Prior VTE?: No VTE Risk Level:: Medical - moderate - high VTE Device Contraindication: Treatment Not Indicated VTE Drug Contraindication: N/A - Med Ordered
[2024-04-29 22:02] LABS: Lactic Acid 1.7 mmol/L (0.5-2.0)
--- NOTE | 2024-04-29 22:26 | PC.NURSE ---
Difficult stick, phlebotomy and Gala (ED PCT) at bedside obtaining blood cultures.
[2024-04-29 22:55] VITALS: BP 142/90; PULSE 108
[2024-04-29] MEDS: Apixaban 5 MG TABLET PO (22:55)
[2024-04-29] MEDS: Metoprolol Succinate ER 50 MG TAB.ER.24H PO (22:55)
[2024-04-29] MEDS: cefTRIAXone sodium 1 GM VIAL IVPUSH (22:55)
[2024-04-29 23:00] VITALS: BP 154/56; PULSE 84; RESP 18; TEMP 36.6; O2SAT 96
[2024-04-30 04:02] VITALS: BP 140/60; PULSE 81; RESP 18; TEMP 36.9; O2SAT 92
[2024-04-30 05:05] LABS: MANUAL DIFF FLAG NO
[2024-04-30 05:07] LABS: Basophils Absolute Auto 0.1 X10*3/uL (0.0-0.2); Basophils Percent Auto 0.7 % (0-2); Eosinophils Absolute Auto 0.1 X10*3/uL (0.0-0.4); Eosinophils Percent Auto 0.8 % (0-4); Hematocrit 43.1 % (37.0-47.0); Imm Gran Abs Auto 0.04 X10*3/uL (0.00-0.03); Imm Gran Pct Auto 0.3 % (0.0-0.4); Lymphocytes Absolute Auto 3.1 X10*3/uL (1.2-4.9); Lymphocytes Percent Auto 25.8 % (20-40); Mean Corpuscular HGB Conc 32.5 g/dl (31.0-35.0); Mean Corpuscular Hemoglobin 28.2 pg (27.0-33.0); Mean Corpuscular Volume 86.9 fL (80.0-98.0); Mean Platelet Volume 10.7 fL (9.4-12.3); Monocytes Absolute Auto 0.8 X10*3/uL (0.1-1.2); Monocytes Percent Auto 6.7 % (2-11); Neutrophils Absolute Auto 7.9 x10*3/uL (2.0-8.3); Neutrophils Percent Auto 65.7 % (45-73); Platelet Count 195 X10*3/uL (160-400); Red Blood Count 4.96 X10*6/uL (4.20-5.50)
[2024-04-30 05:24] LABS: Anion Gap 13 (12-20); Blood Urea Nitrogen 13 mg/dL (9-16); Carbon Dioxide 25 mmol/L (22-29); Chloride 107 mmol/L (96-108); Creatinine Clr Calc Pharmacy 63.3; Estimated Glomerular Filt Rate > 60; Glucose Random 104 mg/dL (60-115); Sodium 141 mmol/L (135-145)
[2024-04-30 06:14] VITALS: BP 129/68; PULSE 75; RESP 16; TEMP 36.2; O2SAT 96
[2024-04-30] MEDS: Apixaban 5 MG TABLET PO ×2 (08:32→20:26)
[2024-04-30] MEDS: lisinopriL 10 MG TABLET PO (08:32)
[2024-04-30] MEDS: Venlafaxine HCl ER 150 MG CAP.ER.24H PO (08:32)
[2024-04-30] MEDS: 0.9 % Sodium Chloride Flush 3 ML SYRINGE IVFLUSH ×2 (08:33→17:12)
[2024-04-30] MEDS: Cholecalciferol (Vitamin D3) 25 MCG TABLET 50 MCG PO (09:05)
[2024-04-30 10:21] VITALS: BP 119/49; PULSE 79; RESP 18; TEMP 36.9; O2SAT 94
--- NOTE | 2024-04-30 11:37 | P.PNIM_ITS ---
Subjective Subjective Date of Service: 04/30/24 Interval History: Seen and examined this morning Follow-up for nausea, UTI Patient reports improvement in nausea this morning, continues to have some ?abdominal tenderness? only when touching the abdomen she reports intermittent dysuria since Saturday Review of Systems Review of Systems: Yes all other systems are reviewed and are negative Constitutional Constitutional: Denies chills and Denies fever(s) Cardiovascular Cardiovascular: Denies chest pain, Denies palpitations and Denies dyspnea Respiratory Respiratory: Denies cough and Denies dyspnea Gastrointestinal Gastrointestinal: Reports abdominal pain, Denies diarrhea, Denies nausea and Denies vomiting Endocrine Endocrine: Denies palpitations Physical Exam 2 Vital Signs: Vital Signs: Last Vital Signs Temp 98.5 F 04/30/24 10:21 Pulse 79 04/30/24 10:21 Resp 18 04/30/24 10:21 BP 119/49 L 04/30/24 10:21 Pulse Ox 94 04/30/24 10:21 O2 Del Method Room Air 04/30/24 10:21 BMI result Body Mass Index 29.1 Const: General: cooperative, comfortable, no acute distress, alert and awake Nutritional Appearance: overweight Orientation/consciousness: patient oriented x3 Resp: Effort & Inspection: normal respiratory effort, able to speak in complete sentences, no respiratory distress and no use of accessory muscles Cardio: Rate: regular rate GI: Other: mild RUQ/epigastric tenderness on palpation, no distention, no guarding no rebound Inspection: No distended Palpation (GI): Soft to palpation Neuro: General: patient oriented x3 and CN's II-XI intact bilaterally Objective Data Active Medications Acetaminophen (Acetaminophen 325 Mg Tablet) 650 mg PO Q6H PRN PRN Reason: Pain, Mild 1-3,fever,headache Apixaban (Apixaban 5 Mg Tablet) 5 mg PO BID [facility] Last Admin: 04/30/24 08:32 Dose: 5 mg Documented By: REHANA Calcium Carbonate (Calcium Carbonate 750 Mg Tab.Chew) 750 mg PO Q4H PRN PRN Reason: Heartburn Ceftriaxone Sodium (Ceftriaxone Sodium 1 Gm Vial) 1 gm IVPUSH Q24H JUDY Lisinopril (Lisinopril 10 Mg Tablet) 10 mg PO DAILY [facility]; Protocol Last Admin: 04/30/24 08:32 Dose: 10 mg Documented By: REHANA Magnesium Hydroxide (Milk Of Magnesia 30 Ml Oral.Susp) 30 ml PO DAILY PRN PRN Reason: Constipation Melatonin (Melatonin 3 Mg Tablet) 6 mg PO BEDTIME PRN PRN Reason: Insomnia Metoprolol Succinate (Metoprolol Succinate Er 50 Mg Tab.Er.24h) 50 mg PO BEDTIME [facility]; Protocol Last Admin: 04/29/24 22:55 Dose: 50 mg Documented By: JAIME Ondansetron HCl (Ondansetron Hcl 4 Mg/2 Ml Vial) 4 mg IVPUSH Q8H PRN PRN Reason: Nausea and Vomiting Sodium Chloride (0.9 % Sodium Chloride Flush 3 Ml Syringe) 3 ml IVFLUSH QSHIFT [facility] Last Admin: 04/30/24 08:33 Dose: 3 ml Documented By: REHANA Venlafaxine HCl (Venlafaxine Hcl Er 150 Mg Cap.Er.24h) 150 mg PO DAILY [facility] Last Admin: 04/30/24 08:32 Dose: 150 mg Documented By: REHANA Vitamin D (Cholecalciferol (Vitamin D3) 25 Mcg Tablet) 50 mcg PO DAILY [facility] Last Admin: 04/30/24 09:05 Dose: 50 mcg Documented By: REHANA Labs 04/30/24 03:55 04/30/24 03:55 Labs: Laboratory Results - last 24 hr 04/29/24 04/29/24 04/29/24 11:33 20:30 21:43 MCV 86.8 MCH 28.1 MCHC 32.4 RDW 12.8 Plt Count 205 MPV 10.4 Immature Gran % (Auto) 0.4 Neut % (Auto) 76.4 H Lymph % (Auto) 17.2 L [place] % (Auto) 5.1 Eos % (Auto) 0.3 Baso % (Auto) 0.6 Lymph # (Auto) 1.9 [place] # (Auto) 0.6 Eos # (Auto) 0.0 Baso # (Auto) 0.1 Abs Immat Gran (auto) 0.04 H Absolute Neuts (auto) 8.3 Absolute Nucleated RBC 0.000 Nucleated RBC % (auto) 0.0 PT 13.4 H INR 1.2 H Anion Gap 13 Estim Creat Clear Calc 60.5 Estimated GFR > 60 Random Glucose 143 H Lactic Acid 1.7 Calcium 9.4 Magnesium 2.2 Total Bilirubin 0.4 AST 27 ALT 19 Alkaline Phosphatase 133 H Total Protein 7.5 Albumin 4.1 Lipase 13 Urine Color Yellow Urine Appearance Cloudy Urine pH 7.5 Ur Specific [place] >= 1.030 H Urine Protein Negative Urine Glucose (UA) Negative Urine Ketones Trace Urine Blood Trace H Urine Nitrite Positive H Ur Leukocyte Esterase Moderate (2+) H Urine RBC 0-2 Urine WBC >50 H Ur Squamous Epith Cells 0-2 Urine Bacteria 4+ Hyaline Casts 0-2 Influenza Type A (PCR) NEGATIVE Influenza Type B (PCR) NEGATIVE RSV RNA Qual (PCR) NEGATIVE SARS-CoV-2 RNA (RT-PCR) NEGATIVE 04/30/24 03:55 MCV 86.9 MCH 28.2 MCHC 32.5 RDW 13.0 Plt Count 195 MPV 10.7 Immature Gran % (Auto) 0.3 Neut % (Auto) 65.7 Lymph % (Auto) 25.8 [place] % (Auto) 6.7 Eos % (Auto) 0.8 Baso % (Auto) 0.7 Lymph # (Auto) 3.1 [place] # (Auto) 0.8 Eos # (Auto) 0.1 Baso # (Auto) 0.1 Abs Immat Gran (auto) 0.04 H Absolute Neuts (auto) 7.9 Absolute Nucleated RBC 0.000 Nucleated RBC % (auto) 0.0 PT INR Anion Gap 13 Estim Creat Clear Calc 63.3 Estimated GFR > 60 Random Glucose 104 Lactic Acid Calcium 9.0 Magnesium Total Bilirubin AST ALT Alkaline Phosphatase Total Protein Albumin Lipase Urine Color Urine Appearance Urine pH Ur Specific [place] Urine Protein Urine Glucose (UA) Urine Ketones Urine Blood Urine Nitrite Ur Leukocyte Esterase Urine RBC Urine WBC Ur Squamous Epith Cells Urine Bacteria Hyaline Casts Influenza Type A (PCR) Influenza Type B (PCR) RSV RNA Qual (PCR) SARS-CoV-2 RNA (RT-PCR) Microbiology Microbiology Results: Microbiology 04/29/24 Unknown Urine Culture - Preliminary Urine clean catch - Clean Catch Midstream Gram negative matthias Assessment and Plan (1) Emphysematous cystitis: Status: Acute Plan This is an 83-year-old female with a past medical history significant for depression, recurrent UTIs, HTN, paroxysmal AFib on Eliquis and restrictive lung disease, who presented to the ED due to nausea, vomiting, upper abdominal pain and bladder pressure with urinary frequency found to have UTI Acute cystitis no sepsis Continue IV ceftriaxone Urine culture growing Gram-negative rods, follow final culture results nausea and vomiting Abdominal ultrasound negative, LFTs normal. CT scan without alternative explanation for symptoms improving Likely due to above No alternative cause seen on CT scan or ultrasound Endometrium thickened measuring 15 mm Outpatient ultrasound recommended Paroxysmal AFib - EKG with NSR - continue home meds including Eliquis and metoprolol HTN - continue home lisinopril, metoprolol Depression - continue home meds Full code VTE prophylaxis: Eliquis Requires ongoing inpatient stay for management of acute UTI requiring IV antibiotics Quality Stroke Does the patient have a stroke diagnosis?: No VTE Prior VTE?: No VTE Risk Level:: Medical - moderate - high VTE Device Contraindication: Treatment Not Indicated VTE Drug Contraindication: N/A - Med Ordered
--- NOTE | 2024-04-30 11:46 | MHC.CM.PN ---
IMM 04/30/24, Pt. lives alone, she does not currently have home care services. She was at [facility] last year for STR and said it was OK. For DME, she has a walker, which at this time she said she is not needing to use. PCP confirmed Dr. Claire. HCP is on file and confirmed; Stalin. Pt. may need assistance with transport home at DC. DCP: home with services. CM to follow for DC needs.
[2024-04-30 16:13] VITALS: BP 117/51; PULSE 61; RESP 20; TEMP 36.9; O2SAT 91
[2024-04-30 20:25] VITALS: BP 126/48; PULSE 80; RESP 17; TEMP 37; O2SAT 96
[2024-04-30] MEDS: cefTRIAXone sodium 1 GM VIAL IVPUSH (20:26)
[2024-04-30] MEDS: Metoprolol Succinate ER 50 MG TAB.ER.24H PO (20:26)
--- NOTE | 2024-04-30 20:43 | PC.NURSE ---
pt medicated per mar, tolerated well with water, vss.
[2024-05-01] VITALS (7 sets, daily range): BP systolic 128–167; BP diastolic 50–74; PULSE 59–75; RESP 14–18; TEMP 36.6–36.9; O2SAT 59–98; BMI 32.0
[2024-05-01] MEDS: Venlafaxine HCl ER 150 MG CAP.ER.24H PO (08:11)
[2024-05-01] MEDS: lisinopriL 10 MG TABLET PO (08:11)
[2024-05-01] MEDS: Apixaban 5 MG TABLET PO ×2 (08:11→20:17)
[2024-05-01] MEDS: Cholecalciferol (Vitamin D3) 25 MCG TABLET 50 MCG PO (08:11)
--- NOTE | 2024-05-01 10:37 | PM.DS ---
DS: Providers Provider Date of Service: 05/01/24 Date of admission: 04/29/24 21:16 Date of discharge: 05/01/24 Primary care physician: Kedar Claire MD Attending physician on discharge: Tano Raygoza Discharging clinician: Lamar Valdes DS: Diagnosis Discharge Diagnosis (1) Emphysematous cystitis: Status: Acute DS: Summary Hospital Course Hospital Course: From H&P on the day of admission This is an 83-year-old female with a past medical history significant for depression, recurrent UTIs, HTN, paroxysmal AFib on Eliquis and restrictive lung disease, who presented to the ED due to nausea, vomiting, upper abdominal pain and bladder pressure with urinary frequency. She reports that this has been occurring for the past 2-3 days. She denies any blood in the urine or burning with urination. Acute cystitis no sepsis. She was initially treated with IV ceftriaxone. Urine cultures growing pansensitive E coli. CT scan showing bladder wall thickening suspicious for cystitis and small collection of gas in the bladder likely due to cystitis as well. Patient will be discharged home to complete course of oral Ceftin. Blood cultures have remained negative to date. nausea and vomiting Abdominal ultrasound negative, LFTs normal. CT scan without alternative explanation for symptoms. Nausea and vomiting resolved, patient is tolerating a regular diet. incidental find of Endometrium thickened measuring 15 mm - recommend Outpatient ultrasound.Discussed with patient, she is aware. She was evaluated by Physical therapy who recommended short-term rehab. Patient is agreeable he will be discharged to rehab in stable condition. Time Attestation Discharge Coordination Time (in mins): 36 Quality: Safe Use of Opioids Does Pt have an Active Cancer Diagnosis on the Problem List?: No Quality: Stroke Does the patient have a stroke diagnosis?: No Physical Exam Vital Signs: Vital Signs: Last Vital Signs Temp 98 F 05/01/24 08:07 Pulse 70 05/01/24 08:07 Resp 18 05/01/24 08:07 BP 128/50 L 05/01/24 08:07 Pulse Ox 94 05/01/24 08:07 O2 Del Method Room Air 05/01/24 08:07 BMI result Body Mass Index 29.1 Const: General: cooperative, comfortable, no acute distress, alert and awake Nutritional Appearance: overweight Orientation/consciousness: patient oriented x3 Resp: Effort & Inspection: normal respiratory effort, able to speak in complete sentences, no respiratory distress and no use of accessory muscles Cardio: Rate: regular rate GI: Inspection: No distended Neuro: General: patient oriented x3 and CN's II-XI intact bilaterally DS: Data Data Completed and Pending Labs on day of discharge: Preliminary micro results at discharge 04/29/24 22:35 Blood Culture - Preliminary Blood - Venous No growth after 24 hours. 04/29/24 22:25 Blood Culture - Preliminary Blood - Venous No growth after 24 hours. Discharge Plan Discharge Anticipated Discharge Date/Time: 05/01/24 11:05 Patient Disposition: Home Health Service Discharge Diagnosis: UTI nausea and vomiting Referrals: Kedar Claire MD [Primary Care Provider] - 1 Week Discharge Medications: New cefuroxime axetil 250 mg tablet 250 mg PO Q12H 5 Days Qty: 10 0RF Continued metoprolol succinate 50 mg tablet extended release 24 hr 50 mg PO BEDTIME venlafaxine 75 mg capsule,extended release 24hr 150 mg PO DAILY lisinopril 10 mg tablet 10 mg PO DAILY Eliquis 5 mg tablet 5 mg PO BID cholecalciferol (vitamin D3) 25 mcg (1,000 unit) capsule 50 mcg PO DAILY Activity on Discharge: As tolerated Stand Alone Forms: Patient Portal Discharge page Print Language: Ukrainian Care Plan Goals: see below Health Concerns: nausea and vomiting - resolved UTI Plan of Treatment: For UTI-complete course of antibiotics as prescribed Endometrial thickening noted on CT scan-recommend outpatient ultrasound for further assessment (old imaging showing thickened endometrium as well) call PCP to schedule follow up appointment as needed Assessment: see discharge summary
--- NOTE | 2024-05-01 14:19 | P.PNIM_ITS ---
Subjective Subjective Date of Service: 05/01/24 Interval History: seen and examined this morning follow up for UTI denies nausea or vomiting; ate entire breakfast; feels well and wants to go home Review of Systems Review of Systems: Yes all other systems are reviewed and are negative Constitutional Constitutional: Denies chills and Denies fever(s) Physical Exam 2 Vital Signs: Vital Signs: Last Vital Signs Temp 97.9 F 05/01/24 13:04 Pulse 59 05/01/24 13:04 Resp 14 05/01/24 13:04 BP 141/53 H 05/01/24 13:04 Pulse Ox 59 L 05/01/24 13:04 O2 Del Method Room Air 05/01/24 13:04 BMI result Body Mass Index 29.1 Const: General: cooperative, comfortable, no acute distress, alert and awake Nutritional Appearance: average body habitus Orientation/consciousness: p atient oriented x3 Resp: Effort & Inspection: normal respiratory effort, able to speak in complete sentences, no respiratory distress and no use of accessory muscles Cardio: Rate: regular rate GI: Inspection: No distended Palpation (GI): Soft to palpation Neuro: General: patient oriented x3 Objective Data Active Medications Acetaminophen (Acetaminophen 325 Mg Tablet) 650 mg PO Q6H PRN PRN Reason: Pain, Mild 1-3,fever,headache Apixaban (Apixaban 5 Mg Tablet) 5 mg PO BID [facility] Last Admin: 05/01/24 08:11 Dose: 5 mg Documented By: DEEPTI Calcium Carbonate (Calcium Carbonate 750 Mg Tab.Chew) 750 mg PO Q4H PRN PRN Reason: Heartburn Ceftriaxone Sodium (Ceftriaxone Sodium 1 Gm Vial) 1 gm IVPUSH Q24H [facility] Last Admin: 04/30/24 20:26 Dose: 1 gm Documented By: LUZ MARINA Lisinopril (Lisinopril 10 Mg Tablet) 10 mg PO DAILY [facility]; Protocol Last Admin: 05/01/24 08:11 Dose: 10 mg Documented By: DEEPTI Magnesium Hydroxide (Milk Of Magnesia 30 Ml Oral.Susp) 30 ml PO DAILY PRN PRN Reason: Constipation Melatonin (Melatonin 3 Mg Tablet) 6 mg PO BEDTIME PRN PRN Reason: Insomnia Metoprolol Succinate (Metoprolol Succinate Er 50 Mg Tab.Er.24h) 50 mg PO BEDTIME [facility]; Protocol Last Admin: 04/30/24 20:26 Dose: 50 mg Documented By: LUZ MARINA Ondansetron HCl (Ondansetron Hcl 4 Mg/2 Ml Vial) 4 mg IVPUSH Q8H PRN PRN Reason: Nausea and Vomiting Sodium Chloride (0.9 % Sodium Chloride Flush 3 Ml Syringe) 3 ml IVFLUSH QSHIFT [facility] Last Admin: 05/01/24 07:05 Dose: Not Given Documented By: DEEPTI Non-Admin Reason: Previously Administered Venlafaxine HCl (Venlafaxine Hcl Er 150 Mg Cap.Er.24h) 150 mg PO DAILY [facility] Last Admin: 05/01/24 08:11 Dose: 150 mg Documented By: DEEPTI Vitamin D (Cholecalciferol (Vitamin D3) 25 Mcg Tablet) 50 mcg PO DAILY [facility] Last Admin: 05/01/24 08:11 Dose: 50 mcg Documented By: DEEPTI Labs 04/30/24 03:55 04/30/24 03:55 Microbiology Microbiology Results: Microbiology 04/29/24 Unknown Urine Culture - Final Urine clean catch - Clean Catch Midstream Escherichia coli 04/29/24 22:35 Blood Culture - Preliminary Blood - Venous No growth after 24 hours. 04/29/24 22:25 Blood Culture - Preliminary Blood - Venous No growth after 24 hours. Assessment and Plan (1) Emphysematous cystitis: Status: Acute Plan This is an 83-year-old female with a past medical history significant for depression, recurrent UTIs, HTN, paroxysmal AFib on Eliquis and restrictive lung disease, who presented to the ED due to nausea, vomiting, upper abdominal pain and bladder pressure with urinary frequency found to have UTI Acute cystitis no sepsis Continue IV ceftriaxone Urine culture growing E coli, discharge with oral Ceftin to complete course of antibiotics nausea and vomiting Abdominal ultrasound negative, LFTs normal. CT scan without alternative explanation for symptoms Resolved Endometrium thickened measuring 15 mm Outpatient ultrasound recommended Paroxysmal AFib EKG with NSR continue home meds including Eliquis and metoprolol HTN continue home lisinopril, metoprolol Depression continue home meds Full code VTE prophylaxis: Raymond seen by PT - rec PRUDENCIO - CM aware Requires ongoing inpatient stay for management of acute UTI requiring IV antibiotics Quality Stroke Does the patient have a stroke diagnosis?: No VTE Prior VTE?: No VTE Risk Level:: Medical - moderate - high VTE Device Contraindication: Treatment Not Indicated VTE Drug Contraindication: N/A - Med Ordered
[2024-05-01] MEDS: cefTRIAXone sodium 1 GM VIAL IVPUSH (20:17)
[2024-05-01] MEDS: Metoprolol Succinate ER 50 MG TAB.ER.24H PO (20:17)
[2024-05-01] MEDS: 0.9 % Sodium Chloride Flush 3 ML SYRINGE IVFLUSH (20:18)
[2024-05-02 03:31] VITALS: BP 150/66; PULSE 60; RESP 16; TEMP 36.3; O2SAT 93
[2024-05-02] MEDS: Flu Vacc TS2024-25(6mos up)/PF 0.5 ML SYRINGE IM (06:29)
[2024-05-02 07:14] VITALS: BP 137/64; PULSE 62; RESP 16; TEMP 35.9; O2SAT 94
[2024-05-02] MEDS: 0.9 % Sodium Chloride Flush 3 ML SYRINGE IVFLUSH ×3 (10:27→20:09)
[2024-05-02] MEDS: ondansetron HCL 4 MG/2 ML VIAL IVPUSH (10:27)
[2024-05-02] MEDS: Acetaminophen 325 MG TABLET 650 MG PO (10:59)
[2024-05-02] MEDS: lisinopriL 10 MG TABLET PO (11:57)
[2024-05-02] MEDS: Apixaban 5 MG TABLET PO ×2 (11:57→20:08)
[2024-05-02] MEDS: Venlafaxine HCl ER 150 MG CAP.ER.24H PO (12:01)
[2024-05-02] MEDS: Cholecalciferol (Vitamin D3) 25 MCG TABLET 50 MCG PO (12:02)
--- NOTE | 2024-05-02 13:45 | HO.PM.IMPN ---
Subjective Subjective Date of Service: 05/02/24 Interval History: seen and examined this morning follow up for UTI feeling well no complaints Review of Systems Review of Systems: Yes all other systems are reviewed and are negative Constitutional Constitutional: Denies chills and Denies fever(s) Cardiovascular Cardiovascular: Denies chest pain and Denies dyspnea Respiratory Respiratory: Denies cough and Denies dyspnea Gastrointestinal Gastrointestinal: Denies abdominal pain, Denies diarrhea, Denies nausea and Denies vomiting Physical Exam Vital Signs: Vital Signs: Last Vital Signs Temp 96.6 F L 05/02/24 07:14 Pulse 62 05/02/24 07:14 Resp 16 05/02/24 07:14 BP 137/64 05/02/24 07:14 Pulse Ox 94 05/02/24 07:14 O2 Del Method Room Air 05/02/24 07:14 BMI result Body Mass Index 32.0 Const: General: cooperative, comfortable, no acute distress, alert and awake Nutritional Appearance: average body habitus and overweight Orientation/consciousness: patient oriented x3 Resp: Effort & Inspection: normal respiratory effort, able to speak in complete sentences, no respiratory distress and no use of accessory muscles Cardio: Rate: regular rate GI: Inspection: No distended Palpation (GI): Soft to palpation Neuro: General: patient oriented x3 and CN's II-XI intact bilaterally Objective Data Active Medications Acetaminophen (Acetaminophen 325 Mg Tablet) 650 mg PO Q6H PRN PRN Reason: Pain, Mild 1-3,fever,headache Last Admin: 05/02/24 10:59 Dose: 325 mg Documented By: DANIEL Comments: pt requests only 1 Apixaban (Apixaban 5 Mg Tablet) 5 mg PO BID [facility] Last Admin: 05/02/24 11:57 Dose: 5 mg Documented By: DANIEL Calcium Carbonate (Calcium Carbonate 750 Mg Tab.Chew) 750 mg PO Q4H PRN PRN Reason: Heartburn Ceftriaxone Sodium (Ceftriaxone Sodium 1 Gm Vial) 1 gm IVPUSH Q24H [facility] Last Admin: 05/01/24 20:17 Dose: 1 gm Documented By: CRYSTAL Lisinopril (Lisinopril 10 Mg Tablet) 10 mg PO DAILY [facility]; Protocol Last Admin: 05/02/24 11:57 Dose: 10 mg Documented By: DANIEL Magnesium Hydroxide (Milk Of Magnesia 30 Ml Oral.Susp) 30 ml PO DAILY PRN PRN Reason: Constipation Melatonin (Melatonin 3 Mg Tablet) 6 mg PO BEDTIME PRN PRN Reason: Insomnia Metoprolol Succinate (Metoprolol Succinate Er 50 Mg Tab.Er.24h) 50 mg PO BEDTIME [facility]; Protocol Last Admin: 05/01/24 20:17 Dose: 50 mg Documented By: CRYSTAL Ondansetron HCl (Ondansetron Hcl 4 Mg/2 Ml Vial) 4 mg IVPUSH Q8H PRN PRN Reason: Nausea and Vomiting Last Admin: 05/02/24 10:27 Dose: 4 mg Documented By: DANIEL Sodium Chloride (0.9 % Sodium Chloride Flush 3 Ml Syringe) 3 ml IVFLUSH QSHIFT [facility] Last Admin: 05/02/24 10:27 Dose: 3 ml Documented By: DANIEL Venlafaxine HCl (Venlafaxine Hcl Er 150 Mg Cap.Er.24h) 150 mg PO DAILY [facility] Last Admin: 05/02/24 12:01 Dose: 150 mg Documented By: DANIEL Vitamin D (Cholecalciferol (Vitamin D3) 25 Mcg Tablet) 50 mcg PO DAILY [facility] Last Admin: 05/02/24 12:02 Dose: 50 mcg Documented By: DANIEL Labs 04/30/24 03:55 04/30/24 03:55 Microbiology Microbiology Results: Microbiology 04/29/24 22:35 Blood Culture - Preliminary Blood - Venous No growth after 48 hours. 04/29/24 22:25 Blood Culture - Preliminary Blood - Venous No growth after 48 hours. Assessment and Plan (1) Emphysematous cystitis: Status: Acute Plan This is an 83-year-old female with a past medical history significant for depression, recurrent UTIs, HTN, paroxysmal AFib on Eliquis and restrictive lung disease, who presented to the ED due to nausea, vomiting, upper abdominal pain and bladder pressure with urinary frequency found to have UTI Acute cystitis no sepsis Continue IV ceftriaxone Urine culture growing E coli, discharge with oral Ceftin to complete course of antibiotics nausea and vomiting CT scan without alternative explanation for symptoms. Abdominal ultrasound negative, LFTs normal. Resolved Endometrium thickened measuring 15 mm Outpatient ultrasound recommended Paroxysmal AFib EKG with NSR continue home meds including Eliquis and metoprolol HTN continue home lisinopril, metoprolol Depression continue home meds Full code VTE prophylaxis: Radhaquis seen by SAMPSON Esquivel CM aware Requires ongoing inpatient stay for management of acute UTI requiring IV antibiotics Quality Stroke Does the patient have a stroke diagnosis?: No VTE Prior VTE?: No VTE Risk Level:: Medical - moderate - high VTE Device Contraindication: Treatment Not Indicated VTE Drug Contraindication: N/A - Med Ordered
--- NOTE | 2024-05-02 15:18 | MHC.CM.PN ---
CM MET WITH PT TO DISCUSS DC PLANNING SHE REPORTS SHE WOULD PREFER TO GO TO [facility] SHE SAYS SHE HAS BEEN TO [facility] AND WOULD PREFER TO GO THERE IF POSSIBLE REFERRAL MADE
[2024-05-02 15:22] VITALS: BP 177/74; PULSE 56; RESP 18; TEMP 36.2; O2SAT 95
[2024-05-02] MEDS: oxyCODONE HCl Immed Release 5 MG TABLET PO (16:09)
[2024-05-02] MEDS: Milk of Magnesia 30 ML ORAL.SUSP PO (16:10)
[2024-05-02] MEDS: polyethylene glycoL 3350 17 GM POWD.PACK PO (16:10)
[2024-05-02 17:35] VITALS: BP 132/62; PULSE 66
--- NOTE | 2024-05-02 18:11 | PC.NURSE ---
Pt reporting 7/10 right sided abdominal pain radiating to rt flank. Grimacing and grabbing abdomen. Only tylenol ordered for pain 1-3. No BM for 3 days. Provider Lamar notified.
--- NOTE | 2024-05-02 18:13 | PC.NURSE ---
Pt reporting 7/10 right sided abdominal pain radiating to rt flank. Grimacing and grabbing abdomen. Only tylenol ordered for pain 1-3. Hot packs given for pain. No BM for 3 days. Provider Lamar notified. Order for oxycodone 5mg x1. Miralax x1 and dulcolax at HS. Given oxycodone, miralax and prn MOM. Patient reports pain 1/10 presently. BP 177/74 when pt in 7/10 pain. Rechecked for 132/62.
[2024-05-02 19:21] VITALS: BP 112/54; PULSE 66; RESP 18; TEMP 36.3; O2SAT 94
[2024-05-02] MEDS: cefTRIAXone sodium 1 GM VIAL IVPUSH (20:08)
[2024-05-02] MEDS: Docusate Sodium 100 MG CAPSULE PO (21:59)
[2024-05-02] MEDS: Metoprolol Succinate ER 50 MG TAB.ER.24H PO (21:59)
[2024-05-03 03:11] VITALS: BP 123/57; PULSE 60; RESP 16; TEMP 36; O2SAT 93
[2024-05-03] MEDS: Venlafaxine HCl ER 150 MG CAP.ER.24H PO (08:42)
[2024-05-03] MEDS: polyethylene glycoL 3350 17 GM POWD.PACK PO ×2 (08:42→19:48)
[2024-05-03] MEDS: Cholecalciferol (Vitamin D3) 25 MCG TABLET 50 MCG PO (08:42)
[2024-05-03] MEDS: Apixaban 5 MG TABLET PO ×2 (08:42→19:47)
[2024-05-03] MEDS: lisinopriL 10 MG TABLET PO (08:42)
[2024-05-03] MEDS: 0.9 % Sodium Chloride Flush 3 ML SYRINGE IVFLUSH ×3 (08:43→19:48)
--- NOTE | 2024-05-03 13:59 | HO.PM.IMPN ---
Subjective Subjective Date of Service: 05/03/24 Interval History: Seen and examined this morning Follow-up for nausea, UTI No further nausea. No overnight events Review of Systems Review of Systems: Yes all other systems are reviewed and are negative Constitutional Constitutional: Denies chills and Denies fever(s) Physical Exam Vital Signs: Vital Signs: Last Vital Signs Temp 96.8 F 05/03/24 03:11 Pulse 60 05/03/24 03:11 Resp 16 05/03/24 03:11 BP 123/57 L 05/03/24 03:11 Pulse Ox 93 05/03/24 03:11 O2 Del Method Room Air 05/03/24 03:11 BMI result Body Mass Index 32.0 Const: General: cooperative, comfortable, no acute distress, alert and awake Nutritional Appearance: average body habitus and overweight Orientation/consciousness: patient oriented x3 Resp: Effort & Inspection: normal respiratory effort, able to speak in complete sentences, no respiratory distress and no use of accessory muscles Cardio: Rate: regular rate GI: Other: mild RUQ/epigastric tenderness on palpation, no distention, no guarding no rebound Inspection: No distended Palpation (GI): Soft to palpation Neuro: General: patient oriented x3 and CN's II-XI intact bilaterally Objective Data Active Medications Acetaminophen (Acetaminophen 325 Mg Tablet) 650 mg PO Q6H PRN PRN Reason: Pain, Mild 1-3,fever,headache Last Admin: 05/02/24 10:59 Dose: 325 mg Documented By: DANIEL Comments: pt requests only 1 Apixaban (Apixaban 5 Mg Tablet) 5 mg PO BID [facility] Last Admin: 05/03/24 08:42 Dose: 5 mg Documented By: DANIEL Bisacodyl (Bisacodyl 10 Mg Supp.Rect) 10 mg ME BEDTIME [facility] Last Admin: 05/02/24 22:00 Dose: Not Given Documented By: CRYSTAL Non-Admin Reason: pt declined at this time, maybe in morning Calcium Carbonate (Calcium Carbonate 750 Mg Tab.Chew) 750 mg PO Q4H PRN PRN Reason: Heartburn Ceftriaxone Sodium (Ceftriaxone Sodium 1 Gm Vial) 1 gm IVPUSH Q24H [facility] Last Admin: 05/02/24 20:08 Dose: 1 gm Documented By: CRYSTAL Docusate Sodium (Docusate Sodium 100 Mg Capsule) 100 mg PO BEDTIME [facility] Last Admin: 05/02/24 21:59 Dose: 100 mg Documented By: CRYSTAL Lisinopril (Lisinopril 10 Mg Tablet) 10 mg PO DAILY [facility]; Protocol Last Admin: 05/03/24 08:42 Dose: 10 mg Documented By: DANIEL Magnesium Hydroxide (Milk Of Magnesia 30 Ml Oral.Susp) 30 ml PO DAILY PRN PRN Reason: Constipation Last Admin: 05/02/24 16:10 Dose: 30 ml Documented By: DANIEL Melatonin (Melatonin 3 Mg Tablet) 6 mg PO BEDTIME PRN PRN Reason: Insomnia Metoprolol Succinate (Metoprolol Succinate Er 50 Mg Tab.Er.24h) 50 mg PO BEDTIME [facility]; Protocol Last Admin: 05/02/24 21:59 Dose: 50 mg Documented By: CRYSTAL Ondansetron HCl (Ondansetron Hcl 4 Mg/2 Ml Vial) 4 mg IVPUSH Q8H PRN PRN Reason: Nausea and Vomiting Last Admin: 05/02/24 10:27 Dose: 4 mg Documented By: DANIEL Polyethylene Glycol (Polyethylene Glycol 3350 17 Gm Powd.Pack) 17 gm PO DAILY [facility] Last Admin: 05/03/24 08:42 Dose: 17 gm Documented By: DANIEL Sodium Chloride (0.9 % Sodium Chloride Flush 3 Ml Syringe) [facility] Admin: 05/03/24 08:43 Dose: 3 ml Documented By: DANIEL Venlafaxine HCl (Venlafaxine Hcl Er 150 Mg Cap.Er.24h) 150 mg PO DAILY [facility] Last Admin: 05/03/24 08:42 Dose: 150 mg Documented By: DANIEL Vitamin D (Cholecalciferol (Vitamin D3) 25 Mcg Tablet) 50 mcg PO DAILY [facility] Last Admin: 05/03/24 08:42 Dose: 50 mcg Documented By: DANIEL Labs 04/30/24 03:55 04/30/24 03:55 Assessment and Plan (1) Emphysematous cystitis: Status: Acute Plan This is an 83-year-old female with a past medical history significant for depression, recurrent UTIs, HTN, paroxysmal AFib on Eliquis and restrictive lung disease, who presented to the ED due to nausea, vomiting, upper abdominal pain and bladder pressure with urinary frequency found to have UTI Acute cystitis no sepsis Continue IV ceftriaxone Urine culture growing E coli, discharge with oral Ceftin to complete course of antibiotics nausea and vomiting CT scan without alternative explanation for symptoms. Abdominal ultrasound negative, LFTs normal. Resolved Endometrium thickened measuring 15 mm Outpatient ultrasound recommended Paroxysmal AFib EKG with NSR continue home meds including Eliquis and metoprolol HTN continue home lisinopril, metoprolol Depression continue home meds Full code VTE prophylaxis: Raymond seen by PT - rec [facility] - CM aware Requires ongoing inpatient stay for management of acute UTI requiring IV antibiotics Quality Stroke Does the patient have a stroke diagnosis?: No VTE Prior VTE?: No VTE Risk Level:: Medical - moderate - high VTE Device Contraindication: Treatment Not Indicated VTE Drug Contraindication: N/A - Med Ordered
[2024-05-03 15:52] VITALS: BP 127/59; PULSE 61; RESP 16; TEMP 36.8; O2SAT 92
[2024-05-03] MEDS: ondansetron HCL 4 MG/2 ML VIAL IVPUSH (17:13)
[2024-05-03 19:37] VITALS: BP 140/62; PULSE 70; RESP 18; TEMP 36.5; O2SAT 96
[2024-05-03] MEDS: Metoprolol Succinate ER 50 MG TAB.ER.24H PO (19:47)
[2024-05-03] MEDS: Docusate Sodium 100 MG CAPSULE PO (19:47)
[2024-05-03] MEDS: cefTRIAXone sodium 1 GM VIAL IVPUSH (19:48)
[2024-05-04 03:40] VITALS: BP 129/60; PULSE 66; RESP 18; TEMP 36.1; O2SAT 93
[2024-05-04 07:57] VITALS: BP 141/64; PULSE 64; RESP 12; TEMP 36.2; O2SAT 93
[2024-05-04] MEDS: Venlafaxine HCl ER 150 MG CAP.ER.24H PO (08:34)
[2024-05-04] MEDS: Docusate Sodium 100 MG CAPSULE PO (08:34)
[2024-05-04] MEDS: Cholecalciferol (Vitamin D3) 25 MCG TABLET 50 MCG PO (08:34)
[2024-05-04] MEDS: Apixaban 5 MG TABLET PO (08:34)
[2024-05-04] MEDS: 0.9 % Sodium Chloride Flush 3 ML SYRINGE IVFLUSH (08:34)
[2024-05-04] MEDS: lisinopriL 10 MG TABLET PO (08:34)
[2024-05-04] MEDS: polyethylene glycoL 3350 17 GM POWD.PACK PO (08:41)
[2024-05-04 09:35] VITALS: BP 141/64; PULSE 64; O2SAT 93
--- NOTE | 2024-05-04 12:48 | MHC.CM.PN ---
Per MD rounds, patient medically cleared for dc to [facility]. [facility], first choice, has obtained auth. BLS transport scheduled for 3pm. [employer], RN, and patient aware. IMM delivered.
--- NOTE | 2024-05-04 13:14 | PM.DS ---
DS: Providers Provider Date of Service: 05/04/24 Date of admission: 04/29/24 21:16 Date of discharge: 05/04/24 Primary care physician: Kedar Claire MD Consults: 05/01/24 19:09 Consult to Wound Care Routine Reason for consultation: left buttock small lump DS: Diagnosis Discharge Diagnosis (1) Emphysematous cystitis: Status: Acute DS: Summary Hospital Course Hospital Course: From H&P on the day of admission This is an 83-year-old female with a past medical history significant for depression, recurrent UTIs, HTN, paroxysmal AFib on Eliquis and restrictive lung disease, who presented to the ED due to nausea, vomiting, upper abdominal pain and bladder pressure with urinary frequency. She reports that this has been occurring for the past 2-3 days. She denies any blood in the urine or burning with urination. Acute cystitis no sepsis. She was initially treated with IV ceftriaxone. Urine cultures growing pansensitive E coli. CT scan showing bladder wall thickening suspicious for cystitis and small collection of gas in the bladder likely due to cystitis as well. Patient will be discharged to complete course of oral Ceftin. Blood cultures have remained negative to date. nausea and vomiting Abdominal ultrasound negative, LFTs normal. CT scan without alternative explanation for symptoms. Nausea and vomiting resolved, patient is tolerating a regular diet. incidental find of Endometrium thickened measuring 15 mm - recommend Outpatient ultrasound.Discussed with patient, she is aware. She was evaluated by Physical therapy who recommended short-term rehab. Patient is agreeable Time Attestation Discharge Coordination Time (in mins): 40 Quality: Safe Use of Opioids Does Pt have an Active Cancer Diagnosis on the Problem List?: No Quality: Stroke Does the patient have a stroke diagnosis?: No Physical Exam Vital Signs: Vital Signs: Last Vital Signs Temp 97.1 F 05/04/24 07:57 Pulse 64 05/04/24 09:35 Resp 12 05/04/24 07:57 BP 141/64 H 05/04/24 09:35 Pulse Ox 93 05/04/24 09:35 O2 Del Method Room Air 05/04/24 07:57 BMI result Body Mass Index 32.0 Appearing in no acute distress head is normocephalic atraumatic eyes pupils are PERRLA sclera is anicteric mouth throat mucous membranes are intact and moist neck is supple no lymphadenopathy, no JVD noted lung sounds are clear to auscultation heart regular rate rhythm, clear S1, S2 positive bowel sounds, abdomen is soft, nontender neuro patient is alert x3, no focal deficits DS: Data Data Completed and Pending Labs on day of discharge: Preliminary micro results at discharge 04/29/24 22:35 Blood Culture - Preliminary Blood - Venous No growth after 48 hours. 04/29/24 22:25 Blood Culture - Preliminary Blood - Venous No growth after 48 hours. Discharge Plan Discharge Anticipated Discharge Date/Time: 05/04/24 13:08 Patient Disposition: Xfer SNF Discharge Diagnosis: UTI nausea and vomiting Referrals: Kedar Claire MD [Primary Care Provider] - 1 Week Discharge Medications: New cefuroxime axetil 250 mg tablet 250 mg PO Q12H 5 Days Qty: 10 0RF Continued metoprolol succinate 50 mg tablet extended release 24 hr 50 mg PO BEDTIME venlafaxine 75 mg capsule,extended release 24hr 150 mg PO DAILY lisinopril 10 mg tablet 10 mg PO DAILY Eliquis 5 mg tablet 5 mg PO BID cholecalciferol (vitamin D3) 25 mcg (1,000 unit) capsule 50 mcg PO DAILY Discharge Orders: Discharge Order (Routine); Ordered 05/04/24 Ordered By: Laura Rutherford Diet: Advance to usual diet Activity on Discharge: As tolerated Stand Alone Forms: Patient Portal Discharge page Print Language: Croatian Care Plan Goals: see below Health Concerns: nausea and vomiting - resolved UTI Plan of Treatment: For UTI-complete course of antibiotics as prescribed Endometrial thickening noted on CT scan-recommend outpatient ultrasound for further assessment (old imaging showing thickened endometrium as well) call PCP to schedule follow up appointment as needed Assessment: see discharge summary
[2024-05-04 15:39] VITALS: BP 117/57; PULSE 70; RESP 12; TEMP 36.2; O2SAT 93
== END 2024-05-04 16:48 | disposition skilled nursing facility (03) | DRG 690 ==
LOC: HO.ED 20:46 → HO.EDOVER 21:37 → HO.S3 05-01 10:01 → HO.EDOVER 05-01 10:51 → HO.S3 05-01 14:31
PROVIDERS: Physician Assistant; Admitting Provider Student in an Organized Health Care Education/Training Program; Emergency Provider Emergency Medicine; PCP Internal Medicine; Visit Provider Nurse Practitioner Acute Care
DX: N30.00 Acute cystitis without hematuria (principal); I48.0 Paroxysmal atrial fibrillation; B96.20 Unspecified Escherichia coli [E. coli] as the cause of diseases classified elsewhere; I10 Essential (primary) hypertension; R93.89 Abnormal findings on diagnostic imaging of other specified body structures; F32.A Depression, unspecified; Z20.822 Contact with and (suspected) exposure to COVID-19; Z79.01 Long term (current) use of anticoagulants; Z79.899 Other long term (current) drug therapy
CPT/HCPCS: 0241U; 36415; 74177; 76705; 80048; 80053; 81001; 83605; 83690; 83735; 84484; 85025; 85610; 87040; 87086; 87088; 87186; 90656; 93005; 97116; 97161; 97530; 99212; 99221; 99285; J0696; J2405; J7120; Q9967

== ENCOUNTER → 2024-04-29 11:06 | Outpatient (BNV) | payer MEDICARE, SELFPAY | PROVIDERS: Emergency Provider Emergency Medicine; PCP Internal Medicine; Visit Provider Internal Medicine | DX: I45.10 Unspecified right bundle-branch block (principal); I49.9 Cardiac arrhythmia, unspecified | CPT/HCPCS: 93010 ==

== ENCOUNTER → 2024-04-29 15:56 | Outpatient (BNV) | payer MEDICARE, SELFPAY | PROVIDERS: Emergency Provider Emergency Medicine; PCP Internal Medicine; Visit Provider Radiology Diagnostic Radiology | DX: R10.13 Epigastric pain (principal); R10.11 Right upper quadrant pain | CPT/HCPCS: 74177; 76705 ==

== ENCOUNTER → 2024-04-29 21:16 | Outpatient (BNV) | payer MEDICARE, SELFPAY | PROVIDERS: Admitting Provider Student in an Organized Health Care Education/Training Program; Emergency Provider Emergency Medicine; PCP Internal Medicine; Visit Provider Physician Assistant | DX: N30.80 Other cystitis without hematuria (principal) | CPT/HCPCS: 99223; 99232; 99239 ==

== ENCOUNTER 2024-05-26 13:18 | Outpatient (AMB) | payer MEDICARE, SELFPAY ==
--- NOTE | 2024-05-26 13:21 | A.OFFPC_ITS ---
Vital Signs 05/26/24 13:26 Height 5 ft 3 in Weight 167 lb BMI 29.6 BP 132/60 Blood Pressure Location Rt brachial Pulse 84 Pulse Source Pulse Oximeter Temp 97.0 F Pulse Oximetry (%) 96 Intake Visit Reasons: discharge follow up Intake Note: wondering why she gets so many UITs and having problem with her left heal Building Construction Superintendent Required: No Optical Instrument Specialist: Not Required per policy Accompanied by: Self / Same As Patient Allergies Penicillins Allergy (Intermediate, Verified 05/26/24 14:43) HIVES naproxen [Aleve] Allergy (Unknown, Verified 05/26/24 14:43) Swelling Medication List - Last Reconciled 05/26/24 by Nano Puente PA-C apixaban (Eliquis) 5 mg PO BID cholecalciferol (vitamin D3) 50 mcg PO DAILY lisinopril 10 mg PO DAILY metoprolol succinate ER 50 mg PO BEDTIME venlafaxine ER 150 mg PO DAILY [facility] Medical History Hospital discharge follow-up Shortness of breath Recent urinary tract infection Functional diarrhea Tubular adenoma History of positive PPD Lumbar nerve root impingement Depression Tendinitis of right shoulder 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 Mother No problems noted. Social History Household Members: Other Household Members Other:: self Housing: Apartment Do you presently have visiting nurse or other home services: No Alcohol intake: former Patient Tobacco Use Status: Never used Tobacco Advance Directives Date on File: 09/05/23 service: No Questionnaire Thrive Questionnaire Date Thrive assessed: 04/30/24 Physical exam (Primary Care) Vital Signs: Last Vital Signs Temp 97.0 F 05/26/24 13:26 Pulse 84 05/26/24 13:26 BP 132/60 05/26/24 13:26 Pulse Ox 96 05/26/24 13:26 Vitals signs have been reviewed. Care Plan Goal for BP management: 130/80 BMI result Body Mass Index 29.6 BMI Assessment/Plan discussion: High BMI High, discussed plan: lifestyle, weight reduction, dietary, physical activity and alcohol moderation Tobacco/Smoking Status: Tobacco use Status Patient Tobacco Use Status Never used Tobacco 05/26/24 13:28 Thrive Assessment: Date of Thrive Assessment Date Thrive assessed 04/30/24 05/26/24 13:28 Coding Level of Care Code Est Pt Level 4 (22381) Complex EM visit Add On G2211 Diagnoses Hospital discharge follow-up Z09 Recent urinary tract infection Z87.440 Shortness of breath R06.02 Endometrial thickening on ultrasound R93.89 HTN (hypertension) I10 Depression F32.A Assessment & Plan Assessment & Plan (1) Hospital discharge follow-up: Code(s): Z09 - Encounter for follow-up examination after completed treatment for conditions other than malignant neoplasm Category: Medical Plan: Patient at home following discharge from [facility] for UTI. She was also noted to have incidental endometrial thickening recommending outpatient follow-up. Will refer to hse advisor for this. Condition is stable continue to monitor. (2) Recent urinary tract infection: Code(s): Z87.440 - Personal history of urinary (tract) infections Category: Medical Plan: Patient denies any urinary symptoms at this time. Denies any fevers, chills, nausea, vomiting, back or flank pain, abdominal pain, suprapubic pain, dysuria, urinary frequency urgency, hematuria, rashes or any other symptoms. Condition has resolved will assess with repeat urine. Will continue to monitor. (3) Shortness of breath: Code(s): R06.02 - Shortness of breath Category: Medical Plan: Patient reports chronic shortness of breath although worse over the past few days. Patient is afebrile, not tachycardic and not tachypneic. Patient most likely related to deconditioning. Will assess for any abnormalities with chest x-ray and a BNP along with CBC and chemistry. Will continue to monitor. (4) Endometrial thickening on ultrasound: Code(s): R93.89 - Abnormal findings on diagnostic imaging of other specified body structures Category: Medical Plan: Endometrial thickening found on ultrasound when admitted in the hospital. Recommend follow-up. Will refer to hse advisor for further evaluation and management of the endometrial thickening. Condition is chronic and stable continue to mon itor. (5) HTN (hypertension): Code(s): I10 - Essential (primary) hypertension Category: Medical Plan: Maintained current treatment protocol. Blood pressure was stable, and the regimen was considered appropriate. Condition is chronic and stable continue to monitor (6) Depression: Code(s): F32.A - Depression, unspecified Category: Medical Plan: The current anxiety/depression management with Venlafaxine appears effective. Ongoing mental health evaluations are planned. Condition is chronic and stable continue to monitor. Plan Plan Patient was informed and verbally consented to the use of an ambient scribe for clinic note documentation during this visit. 1. Urinary Tract Infection The patient was treated successfully for the UTI with a course of antibiotics. Follow-up testing will confirm the resolution of infection and function of kidneys. 2. Endometrial thickening found on ultrasound. Will refer to hse advisor. 3. Hyperlipidemia Current statin treatment continues. Lipid levels will be checked at regular intervals. 4. Anxiety The current anxiety management with Venlafaxine appears effective. Ongoing mental health evaluations are planned. 5. Hypertension Maintained current treatment protocol. Blood pressure was stable, and the regimen was considered appropriate. 6. Fatigue Fatigue is monitored, ensuring it is part of her recovery from the UTI. Basic testing is planned to check kidney function and lingering infection. 7. Shortness Of Breath A chest X-ray is planned to investigate any possible fluid retention as the cause. Her condition is under close observation, with prior symptoms of shortness of breath already being familiar. Discussion Notes During today's visit, I discussed the patient's discharge from [facility] and management of the recently treated urinary tract infection. I emphasized the importance of follow-up with repeat blood work and urinalysis to ensure complete resolution and evaluate renal function. We discussed her ongoing symptoms, including fatigue and shortness of breath, and I recommended a chest X-ray to rule out fluid retention. I encouraged her to continue her current medications for hypertension, hyperlipidemia, and anxiety, as they are well- tolerated. Additionally, I outlined that we will reevaluate her condition in three months unless any concerning findings arise from her testing, which would warrant earlier follow-up. The patient was agreeable to all management decisions. Orders: Orders B Type Natriuretic Peptide Today R60.0 - Localized edema XR chest 2V Today R06.02 - Shortness of breath Complete Blood Count Auto Diff Today Z00.00 - Encounter for general adult medical examination without abnormal findings Comprehensive Met. Panel Today Z00.00 - Encounter for general adult medical examination without abnormal findings UA CC w/rflx Micro + Cult Today Z87.440 - Personal history of urinary (tract) infections Patient Instructions: Patient Instructions - Continue taking all prescribed medications, including Metoprolol, Venlafaxine, Lisinopril, and Vitamin D. - Obtain blood work and urine testing as discussed to evaluate infection resolution and kidney function. - Schedule and attend a chest X-ray to rule out fluid retention related to shortness of breath. - follow-up with hse advisor for further evaluation and management of endometrial thickening found on ultrasound - Report any new or worsening symptoms, including significant fatigue or changes in breathing. - Expect follow-up with a personal property appraiser and elementary school social worker as coordinated. - Continue utilizing the walker for safe ambulation. - Follow-up with my office as planned in three months unless otherwise contacted to come in sooner. Scribe Plan - Not visible on output: Date of admission: 04/29/2024 Date of discharge: 05/04/2024 This is a Follow-up from admission at [facility] HPI: The patient is an 83-year-old female presenting for a follow-up visit after being discharged from [facility] due to a urinary tract infection. Her initial presentation on April 29, 2024, led to a diagnosis of UTI with a dditional findings from a CAT scan indicating lateral wall thickening and gas presence. Blood cultures were negative, and she received intravenous and oral antibiotic treatments. A subsequent ultrasound was normal. She stayed at the [facility] post-discharge until May 09, 2024. She reports ongoing symptoms, including fatigue and worsening shortness of breath, especially during walking. Her medical history includes hypertension, hyperlipidemia, and anxiety, and she continues to take her prescribed medications without any recent changes. No falls or alterations in urinary function were reported since discharge. Hospital Course/Discharge Summary: From H&P on the day of admission This is an 83-year-old female with a past medical history significant for depression, recurrent UTIs, HTN, paroxysmal AFib on Eliquis and restrictive lung disease, who presented to the ED due to nausea, vomiting, upper abdominal pain and bladder pressure with urinary frequency. She reports that this has been occurring for the past 2-3 days. She denies any blood in the urine or burning with urination. Acute cystitis no sepsis. She was initially treated with IV ceftriaxone. Urine cultures growing pansensitive E coli. CT scan showing bladder wall thickening suspicious for cystitis and small collection of gas in the bladder likely due to cystitis as well. Patient will be discharged to complete course of oral Ceftin. Blood cultures have remained negative to date. nausea and vomiting Abdominal ultrasound negative, LFTs normal. CT scan without alternative explanation for symptoms. Nausea and vomiting resolved, patient is tolerating a regular diet. incidental find of Endometrium thickened measuring 15 mm - recommend Outpatient ultrasound.Discussed with patient, she is aware. She was evaluated by Physical therapy who recommended short-term rehab. Patient is agreeable Discharged to/Current Location: [facility] Lives with: alone Diagnosis: Urinary tract infection/acute cystitis/endometrial thickening measuring 15 mm Procedures performed: Abdominal ultrasound and CT scan of abdomen pelvis New medications: Patient was sent home with cefuroxime 250 mg p.o. every 12 hours for 5 days which she has completed Discontinued medications: No medications were discontinued Change medications/dosing: No medications were change in the dosing were left alone Pending labs: No labs are pending Pending diagnostic test: They are recommending outpatient ultrasound will refer to hse advisor for this Any Follow-up Labs required? No follow-up labs are required although due to patient is still having fatigue will order CBC, CMP, BNP, UA and a chest x-ray Any Follow-up Diagnostic test required? No follow-up diagnostic tests were required although will order chest x-ray due to patient reporting fatigue and shortness of breath How are you feeling? Patient reports some fatigue and some worsening shortness of breath otherwise denies any other symptoms Are you in any pain or discomfort? Patient denies being in any pain or discomfort Do you have any questions about your condition or discharge instructions? Patient did not have any questions about her condition or discharge instruction Were you able to get your medications filled? Patient was able to feel all her medications and finished all her medication as prescribed the cefuroxime Do you have any questions about your medications? Patient does not have any questions about her medications at this time Any referrals required? Patient had a referral for PT and speech therapy. Reports PT arrived last week and speech therapy arrived this week. She reports she has elementary school social worker appointment on for INSTRUMENT SHOP SUPERVISOR services. Patient is interested in meals on wheels Were you able to schedule your follow-up appointment? Patient was able to schedule all her follow-up appointments. If home health was ordered, have they contact you? Yes stay were ordered and they have contacted the patient they are coming out to see the patient on she reports Any outpatient services, if so, are you scheduled? She has a scheduled appointment with elementary school social worker at her home on . She has PT and speech therapy already in place per patient. Are there any additional resources like transportation you might need during her recovery? - VNA? Patient not interested in VNA services - INSTRUMENT SHOP SUPERVISOR? Patient interested in INSTRUMENT SHOP SUPERVISOR service - Meals on wheels? Patient interested in meals on wheels Educational need/resources: Not at this time What support system do you have? Patient has her family Social History - Lives alone at home. - Currently not using meals on wheels but expressed past interest. - No substance use. - Functional status: Uses a walker, performing personal care independently. - Awaiting assessment and support from a personal property appraiser (INSTRUMENT SHOP SUPERVISOR) and elementary school social worker. - Recent engagement with physical therapy and speech pathology services. Review of Systems - Cardiovascular: Reports shortness of breath during physical activities. - General: Reports feeling tired, not more than usual. - Skin: No new wounds on buttocks detected, dry skin present. Physical Exam Appearance: Alert. Oriented X3. No acute distress. Head: Normal external exam. Normocephalic. Atraumatic. Eyes: Pupils are equal, round, and reactive to light. Extraocular movements intact. Conjunctiva and sclera normal. Eyelids normal. Ears: External auditory canal normal. Tympanic membranes normal. Throat: Pharynx normal. Uvula midline. Moist mucous membranes. Neck: Normal inspection. Neck supple. Full range of motion. No adenopathy. Thyroid Normal. No meningeal signs. No neck mass noted. Cardiovascular: Normal heart rate and rhythm. Heart sound normal. No murmurs noted. Pulses normal throughout. Respiratory: No respiratory distress. Painless inspiration. Breath sounds normal. No wheezes/rales/rhonchi noted. Chest nontender. No accessory muscle usage noted or decreased air movement noted. Abdomen: Soft and nontender. Bowel sounds normal in all 4 quadrants. No distention noted. No organomegaly noted. No visible injury noted. Back: No costovertebral angle tenderness. Full range of motion noted. Skin: Skin warm and dry. Normal skin color. Normal skin turgor. No rashes/lesions/lacerations noted. Extremities: No lower extremity edema. Extremities exhibit normal range of motion. Extremities nontender. Neuro: Oriented X 3. No motor deficit. No sensory deficit. Reflexes normal. Results - Labs: Blood culture negative. - Diagnostic tests: CAT scan revealed lateral wall thickening and gas presence. Normal ultrasound. - Laboratory: White blood cell count was 12,000 indicating an infection.
[2024-05-26 13:26] VITALS: BP 132/60; PULSE 84; TEMP 36.1; O2SAT 96; BMI 29.6
== END 2024-05-26 13:56 | disposition home or self-care (01) ==
LOC: HO.HMCSH 13:18
PROVIDERS: PCP Internal Medicine; Visit Provider Physician Assistant Medical
DX: Z09 Encounter for follow-up examination after completed treatment for conditions other than malignant neoplasm (principal); Z87.440 Personal history of urinary (tract) infections; R06.02 Shortness of breath; R93.89 Abnormal findings on diagnostic imaging of other specified body structures; I10 Essential (primary) hypertension; F32.A Depression, unspecified

== ENCOUNTER → 2024-05-26 13:18 | Outpatient (BNVA) | payer MEDICARE, SELFPAY | PROVIDERS: PCP Internal Medicine; Visit Provider Physician Assistant Medical | DX: Z09 Encounter for follow-up examination after completed treatment for conditions other than malignant neoplasm (principal); R06.02 Shortness of breath; R93.89 Abnormal findings on diagnostic imaging of other specified body structures; F32.A Depression, unspecified; I10 Essential (primary) hypertension; Z87.440 Personal history of urinary (tract) infections | CPT/HCPCS: 99212 ==

== ENCOUNTER → 2024-06-16 23:59 | Outpatient (BNV) | payer MEDICARE, SELFPAY | PROVIDERS: PCP Internal Medicine; Visit Provider Internal Medicine | DX: I48.0 Paroxysmal atrial fibrillation (principal); R93.89 Abnormal findings on diagnostic imaging of other specified body structures | CPT/HCPCS: G0180 ==

== ENCOUNTER 2024-08-26 15:01 | Outpatient (AMB) | payer MEDICARE, SELFPAY ==
[2024-08-26 15:03] VITALS: BP 132/68; PULSE 90; RESP 20; TEMP 36.8; O2SAT 98; BMI 29.6
--- NOTE | 2024-08-26 15:03 | MHC.PC.OV ---
Vital Signs 08/26/24 15:03 Height 5 ft 3 in Weight 167 lb BMI 29.6 BP 132/68 Blood Pressure Location Rt brachial Position Sitting Respiration 20 Pulse 90 Pulse Source Pulse Oximeter Temp 98.2 F Temp Source Temporal Artery Scan Pulse Oximetry (%) 98 Oxygen Delivery Method Room Air Intake Visit Reasons: follow up Intake Note: wondering why she gets so many UITs and having problem with her left heal Right Of Way Agent Required: No Treasury Specialist: Not Required per policy Accompanied by: Self / Same As Patient Allergies Penicillins Allergy (Intermediate, Verified 08/26/24 15:25) HIVES naproxen (Aleve) Allergy (Unknown, Verified 08/26/24 15:25) Swelling Medication List - Last Reconciled 08/26/24 by Nano Puente PA-C apixaban (Eliquis) 5 mg PO BID cholecalciferol (vitamin D3) 50 mcg PO DAILY lisinopril 10 mg PO DAILY metoprolol succinate ER 50 mg PO BEDTIME venlafaxine ER 150 mg PO DAILY Tobacco use date assessed: 08/26/24 Fall risk assessment: No Falls in past year Last assessed Fall Risk: 08/26/24 Dental Screening Dental Screen Date: 08/26/24 Did you have a dental visit in the last 12 months?: No Did you have a dental problem in the last 6 months where you did not have access to dental care?: No Was dental information given to patient?: Patient has dentist (pt have top dentures) HPI follow up HPI Details The patient is an 83-year-old female presenting with fatigue and hypertension management. She reports experiencing fatigue for several months, which she describes as feeling drained and tired without a clear cause. The fatigue has been persistent and affects her daily activities. The patient has a history of hypertension, for which she is currently taking lisinopril 10 mg and metoprolol at bedtime. She has been on these medications for over two years. Recently, she has been experiencing a sensation of feeling drained after taking her medications, which she describes as something inside her draining. She also reports peripheral edema, primarily around her ankles, which has been a concern. The patient denies any significant shortness of breath but mentions it occurs randomly. The patient has a history of anxiety and depression, for which she is taking venlafaxine 150 mg. She has been considering reducing the dose to 75 mg due to concerns about fatigue and feeling drained. A heart murmur was noted during the examination, and the patient recalls having an echocardiogram last year. There is a consideration for a referral for further cardiac evaluation to assess the heart murmur. 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 Spinal stenosis Dysphagia Dermatitis Insomnia Restrictive lung disease HTN (hypertension) Paroxysmal atrial fibrillation Surgical History History of right oophorectomy Hx of appendectomy Hx of cataract Family History Father Alcohol abuse Mother Diabetes Social History Household Members: Other Household Members Other:: self Housing: Apartment Do you presently have visiting nurse or other home services: No Alcohol intake: current Alcohol intake frequency: holidays/special occasions only Alcohol type: wine Patient Tobacco Use Status: Never used Tobacco Advance Directives Date on File: 09/05/23 service: No Current occupational status: retired Cognitive needs: No Hearing needs: No Vision needs: No Questionnaire PHQ-9 Over the last 2 weeks, how often have you been bothered by any of the following problems? 1. Little interest or pleasure in doing things: not at all 2. Feeling down, depressed, or hopeless: not at all 3. Trouble falling or staying asleep, or sleeping too much: not at all 4. Feeling tired or having little energy: not at all 5. Poor appetite or overeating: not at all 6. Feeling bad about yourself - or that you are a failure or have let yourself or your family down: not at all 7. Trouble concentrating on things, such as reading the newspaper or watching television: not at all 8. Moving or speaking so slowly that other people could have noticed. Or the opposite - being so fidgety or restless that you have been moving around a lot more than usual: not at all 9. Thoughts that you would be better off or of hurting yourself in some way: not at all Total score: 0 Depression Screening Interpretation: Negative Depression Screening Done: Yes 18528 - PHQ-9 Billing: Yes Source: Developed by Drs. Qasim Hubbard, Amanda Smith, Rojelio Mahoney and colleagues, with an educational cayden from [employer]. Thrive Questionnaire Date Thrive assessed: 08/26/24 I am a: Patient What is your living situation today?: I have a steady place to live Within the past 12 months, did the food you bought not last and you didn't have the money to get more?: Never true Within the past 12 months, did you worry whether your food would run out before you got money to buy more?: Never true Do you have trouble paying for medicines?: No Do you have trouble getting transportation to medical appointments?: No Do you have trouble paying your heating and electricity bill?: No Do you have trouble taking care of your child, family member or friend?: No Do you have trouble with day-to-day activities such as bathing, preparing meals, shopping, managing finances, etc.?: No Are you currently unemployed and looking for a job?: No Are you interested in more education?: No Please select the resources that you would like help with: None Currently or been in a relationship where the following occur: No concerns reported THRIVE Score: 0 AUDIT C Alcohol Use Questionnaire (AUDIT-C) 1. How often do you have a drink containing alcohol?: Monthly or less 2. How many drinks containing alcohol do you have on a typical day when you are drinking?: 1 or 2 3. How often do you have six or more drinks on one occasion?: Never Total Score: 1 Score Reviewed/Action Taken: No CHEO-7 AMB Questionnaire CHEO-7 Date CHEO - 7 assessed: 08/26/24 Feeling nervous, anxious, or on edge: 0 = Not at all Not being able to stop or control worryin = Not at all Worrying too much about different things: 0 = Not at all Trouble relaxin = Not at all Being so restless that it is hard to sit still: 0 = Not at all Becoming easily annoyed or irritable: 0 = Not at all Feeling afraid as if something awful might happen: 0 = Not at all Total CHEO-7 score (0-4 normal; 5-9 mild; 10-14 moderate; 15-21 severe): 0 Source: Developed by Drs. Qasim Hubbard, Amanda Smith, Rojelio Mahoney and colleagues, with an educational cayden from [employer]. CHEO-7 Assessment Billing CHEO-7 Assessment Tool: CHEO-7 Assessment 61429 Review of Systems Const Details: - Cardiovascular: Reports peripheral edema around ankles. Denies chest pain or significant shortness of breath. - General: Reports fatigue for several months. Physical exam (Primary Care) Vital Signs: Last Vital Signs Temp 98.2 F 08/26/24 15:03 Pulse 90 08/26/24 15:03 Resp 20 08/26/24 15:03 BP 132/68 08/26/24 15:03 Pulse Ox 98 08/26/24 15:03 Oxygen Delivery Method Room Air 08/26/24 15:03 Care Plan Goal for BP management: <140/90 at Goal BMI result Body Mass Index 29.6 BMI Assessment/Plan discussion: High BMI High, discussed plan: lifestyle, weight reduction, dietary, physical activity and alcohol moderation Tobacco/Smoking Status: Tobacco use Status Tobacco use date assessed 08/26/24 08/26/24 15:22 Patient Tobacco Use Status Never used Tobacco 08/26/24 15:22 PHQ-9: PHQ-9 Score PHQ-9: Total score 0 08/26/24 15:22 Depression Screening Interpretation: Negative Thrive Assessment: Date of Thrive Assessment Date Thrive assessed 08/26/24 08/26/24 15:22 Currently or been in a relationship where the following occur: No concerns reported Const Other: Appearance: Alert. Oriented X3. No acute distress. Head: Normal external exam. Normocephalic. Atraumatic. Eyes: Pupils are equal, round, and reactive to light. Extraocular movements intact. Conjunctiva and sclera normal. Eyelids normal. Ears: External auditory canal normal. Tympanic membranes normal. Throat: Pharynx normal. Uvula midline. Moist mucous membranes. Neck: Normal inspection. Neck supple. Full range of motion. No adenopathy. Thyroid Normal. No meningeal signs. No neck mass noted. Cardiovascular: Normal heart rate and rhythm. Heart sound normal. A murmur was noted. Pulses normal throughout. Respiratory: No respiratory distress. Painless inspiration. Breath sounds normal. No wheezes/rales/rhonchi noted. Chest nontender. No accessory muscle usage noted or decreased air movement noted. Abdomen: Soft and nontender. Bowel sounds normal in all 4 quadrants. No distention noted. No organomegaly noted. No visible injury noted. Back: No costovertebral angle tenderness. Full range of motion noted. Skin: Skin warm and dry. Normal skin color. Normal skin turgor. No rashes/lesions/lacerations noted. Extremities: Mild swelling around the ankles. Extremities exhibit normal range of motion. Extremities nontender. Neuro: Oriented X 3. No motor deficit. No sensory deficit. Reflexes normal. Results Reviewed Results Reviewed: - Labs: Previous CBC showed elevated white blood cell count on 03/02/23. - Imaging: Echocardiogram performed last year. Coding Level of Care Code Est Pt Level 4 (75723) Complex EM visit Add On G2211 Diagnoses Peripheral edema R60.0 Fatigue R53.83 HTN (hypertension) I10 Anxiety and depression F41.9; F32.A Heart murmur R01.1 Additional Codes PHQ-9 - 49191 - PHQ-9 Billing: Yes ([id number]) CHEO-7 Assessment Billing - CHEO-7 Assessment Tool: CHEO-7 Assessment 59758 ([id number]) Assessment & Plan Assessment & Plan (1) Peripheral edema: Code(s): R60.0 - Localized edema Category: Medical Plan: The patient reports peripheral edema around the ankles. Monitoring of blood pressure and medication adjustment may be necessary to address this issue. Condition is improving and stable will continue to monitor. (2) Fatigue: Code(s): R53.83 - Other fatigue Category: Medical Plan: The patient experiences persistent fatigue, potentially related to medication side effects. A reduction in venlafaxine dosage is being considered to alleviate symptoms. Will also order echocardiogram to assess patient's history of heart murmur and severity of heart murmur. Condition is stable will continue to monitor. (3) HTN (hypertension): Code(s): I10 - Essential (primary) hypertension Category: Medical Plan: The patient is on lisinopril and metoprolol for hypertension management. Home blood pressure monitoring is advised to ensure adequate control and to assess the need for medication adjustment. Condition is chronic and stable will continue to monitor. (4) Anxiety and depression: Code(s): F41.9 - Anxiety disorder, unspecified; F32.A - Depression, unspecified Category: Medical Plan: The patient is currently on venlafaxine 150 mg for anxiety and depression. A dose reduction to 75 mg is planned to address fatigue concerns, with monitoring for any changes in mood or anxiety levels. Condition is chronic and stable continue to monitor. (5) Heart murmur: Code(s): R01.1 - Cardiac murmur, unspecified Category: Medical Plan: A heart murmur was detected during the examination. Patient reports she has had a heart murmur for many years has not had an ultrasound/echocardiogram of this that she is aware of. A referral for further cardiac evaluation, including a possible echocardiogram, is considered to assess the murmur's significance. Condition is chronic and stable continue to monitor. Plan Plan Patient was informed and verbally consented to the use of an ambient scribe for clinic note documentation during this visit. 1. Peripheral Edema The patient reports peripheral edema around the ankles. Monitoring of blood pressure and medication adjustment may be necessary to address this issue. 2. Fatigue The patient experiences persistent fatigue, potentially related to medication side effects. A reduction in venlafaxine dosage is being considered to alleviate symptoms. 3. Hypertension The patient is on lisinopril and metoprolol for hypertension management. Home blood pressure monitoring is advised to ensure adequate control and to assess the need for medication adjustment. 4. Anxiety And Depression The patient is currently on venlafaxine 150 mg for anxiety and depression. A dose reduction to 75 mg is planned to address fatigue concerns, with monitoring for any changes in mood or anxiety levels. 5. Heart Murmur A heart murmur was detected during the examination. A referral for further cardiac evaluation, including a possible echocardiogram, is considered to assess the murmur's significance. We discussed the patient's current medication regimen and the potential side effects contributing to her fatigue. I advised her to monitor her blood pressure at home to ensure it is not dropping too low. We also considered reducing her venlafaxine dosage to address fatigue while monitoring her mood and anxiety levels. A referral for further cardiac evaluation was discussed due to the detected heart murmur. The patient was informed about the importance of follow-up visits to reassess her condition and adjust her treatment plan as necessary. Orders: Orders CA echo transthoracic complete Today R01.1 - Cardiac murmur, unspecified, R53.83 - Other fatigue Liver Panel Today Z00.00 - Encounter for general adult medical examination without abnormal findings TSH reflex Free T4 Today Z00.00 - Encounter for general adult medical examination without abnormal findings C Reactive Protein Today Z00.00 - Encounter for general adult medical examination without abnormal findings Hemoglobin A1c Today Z00.00 - Encounter for general adult medical examination without abnormal findings Lipid Panel Today Z00.00 - Encounter for general adult medical examination without abnormal findings Vitamin B12 and Folate Today Z00.00 - Encounter for general adult medical examination without abnormal findings Vitamin D 25-OH Total Today Z00.00 - Encounter for general adult medical examination without abnormal findings Medications: New venlafaxine ER 75 mg PO DAILY 90 tabs 1RF venlafaxine ER 75 mg PO DAILY 7 tabs 0RF Patient Instructions: - Monitor your blood pressure at home, especially two to three hours after taking lisinopril. - Consider reducing venlafaxine dosage to 75 mg and monitor for changes in mood or anxiety. - Follow up with a cardiac evaluation for the detected heart murmur. - Schedule a follow-up visit to reassess your condition and treatment plan.
== END 2024-08-26 15:49 | disposition home or self-care (01) ==
LOC: HO.HMCSH 15:01
PROVIDERS: PCP Internal Medicine; Visit Provider Physician Assistant Medical
DX: R60.0 Localized edema (principal); R53.83 Other fatigue; I10 Essential (primary) hypertension; F41.9 Anxiety disorder, unspecified; F32.A Depression, unspecified; R01.1 Cardiac murmur, unspecified

== ENCOUNTER → 2024-08-26 15:01 | Outpatient (BNVA) | payer MEDICARE, SELFPAY | PROVIDERS: PCP Internal Medicine; Visit Provider Physician Assistant Medical | DX: R60.0 Localized edema (principal); R53.83 Other fatigue; I10 Essential (primary) hypertension; F41.9 Anxiety disorder, unspecified; F32.A Depression, unspecified; R01.1 Cardiac murmur, unspecified | CPT/HCPCS: 96127; 99212 ==

== ENCOUNTER → 2024-09-30 13:47 | Outpatient (REF) | payer MEDICARE, SELFPAY ==
--- NOTE | 2024-09-30 13:51 | CA_ITS ---
Transthoracic Echocardiogram Patient (Last, First, Middle): Diane Licona R Gender: Female Date of : 1940 Age: 83 Procedure Date: 09/30/2024 Procedure Type: Transthoracic Echocardiogram Location: OP Height: 160.02 cm Weight: 75.75 kg BSA: 1.79 m2 Heart Rate: bpm BP: 132 / 68 mmHg Waredresser: DAVID Referring MD: Nano Puente PA-C Flotation Tender: Satnam Shaffer MD Symptoms: R53.83 - Other fatigue Study Quality: Adequate with contrast ECG Rhythm: Sinus Conclusions: - 1. Normal LV ejection fraction of 65-70% with impaired relaxation filling pattern 2. Normal cardiac valvular Dopplers 3. Small pericardial effusion Findings Procedure Information Contrast agent, definity, is being given per protocol without apparent complications. The study quality is limited by the patients inability to tolerate the test. Left Ventricle Normal left ventricular size, thickness, and systolic function. The visually estimated ejection fraction is between 65-70%. Spectral Doppler is indicative of an impaired relaxation filling pattern. Right Ventricle Normal right ventricular cavity size and systolic function. Atria The left atrium is likely dilated. There is no evidence of interatrial shunt. The right atrium is normal in size. Aortic Valve Normal aortic valve structure and function. There is no aortic valve stenosis. There is no aortic valve regurgitation. Mitral Valve There is mild anterior and posterior mitral leaflet thickening. There is trace mitral valve regurgitation. There is no mitral valve stenosis. Pulmonic Valve The pulmonic valve was not well visualized. Tricuspid Valve Likely normal tricuspid valve structure and function. There is trace tricuspid valve regurgitation. The right ventricular systolic pressure is normal. The right ventricular systolic pressure is 21 mmHg. Normal right atrial pressure. There is no evidence of pulmonary hypertension. Great Vessels All visible segments of the aorta are normal in size. The pulmonary artery was not well visualized. There is no dilatation of the ascending aorta measuring 3.30 cm. Venous The inferior vena cava is normal in size and collapses greater than 50% with inspiration. Pericardium/Pleural There is a small circumferential pericardial effusion. There are no definitive echocardiographic findings of tamponade physiology. Prior Study Comparison No significant change compared to prior study dated: 06/11/2022. Measurements 2D Linear Measurements IVSd: 0.90 0.6-0.9/0.6-1.0 cm LVIDd: 4.51 3.9-5.3/4.2-5.9 cm LVIDd Index: 2.52 2.4-3.2/2.2-3.1 cm/m2 LVIDs: 2.91 2.0-3.6 cm LVPWd: 0.83 0.7-1.1 cm LA Diam: 3.50 2.7-3.8/3.0-4.0 cm LAIDs Index: 1.96 1.5-2.3 cm/m2 LV Mass: 157.77 67-162/88-224 g LV Mass Index: 88.14 43-95/49-115 g/m2 LVOT Diam: 2.20 3.0+(-)1.3 cm 2D Systolic Function EF 4C: 66.80 >55% EF 2C: 76.00 >55% EF BiP: 70.80 >55% Mitral Valve MV Pk E: 0.73 MV PK A: 0.98 MV Decel Time: 301.00 E/A: 0.80 E'Lateral: 6.96 E'Medial: 4.24 E/E' Med: 17.30 E/E' Lat: 10.50 PHT: 88.00 MVA PHT: 2.50 Decel Alcorn: 2.43 Aortic Valve AoV Pk Otto: 1.30 AoV Mn Otto: 0.86 AoV VTI: 0.27 AoV Pk Grad: 7.00 Aov Mn Grad: 3.00 AARON Cont.VTI: 2.50 LVOT LVOT Pk Otto: 0.95 LVOT Mn Otto: 0.59 LVOT VTI: 0.18 LVOT Pk Grad: 4.00 LVOT Mn Grad: 2.00 LVOT Diam: 2.20 LVOT Area: 3.80 Diastolic Function MV Pk E: 0.73 MV Pk A: 0.98 E/A: 0.80 E'Medial: 4.24 E/E' Med: 17.30 E' Laterial: 6.96 E/E' Lat: 10.50 Right Ventricle TAPSE (mm): 21.70 TVS' Otto: 12.40 Tricuspid Valve TR Pk Otto: 2.10 TR Pk Grad: 18.00 RA Press: 3.00 RVSP: 21.00 Great Vessels Aorta Sinus of Valsalva: 3.70 2.0-3.[address] Ridge: 2.91 1.7-3.4 cm Ao Asc: 3.30 2.1-3.4 cm Updated in Other Vendor System with Status of Final Satnam Shaffer MD electronically signed on 10/01/2024 9:03:30 AM with status of Final
--- OUTSIDE RECORDS SUMMARY | 2024-09-30 14:30 | XMS_ITS | Clinical Summary ---
Author Organization [facility] Address [address] [address] Phone Care Team Providers Care Correctional Captain Name Role Phone Kamla Qasim Mckinney Primary Care Provider + [phone] Allergies Active Allergy Reactions Criticality Noted Date Comments Naproxen Sodium 09/16/2021 Medications ondansetron (ZOFRAN-ODT) 4 MG disintegrating tablet Take 1 tablet (4 mg total) by mouth every 8 (eight) hours as needed for nausea. 10 tablet Active Social History Tobacco Use Types Packs/Day Years Used Date Smoking Tobacco: Never Assessed Education Answer Date Recorded Are you interested in more education? Not on noy e 07/07/2022 Are you concerned about learning? Not on file 07/07/2022 No 07/07/2022 No 07/07/2022 Digital Access Answer Date Recorded No 08/07/2022 No 08/07/2022 Reliable internet access at home? Not on file 08/07/2022 Device with a working camera? Not on file Comments Unknown Sex and Gender Information Value Date Recorded Sex Assigned at Not on file Legal Sex Female 6:40 PM EDT Gender Identity Not on file Sexual Orientation Not on file Last Filed Vital Signs Vital Sign Reading Time Taken Comments Blood Pressure 129/63 09/16/2021 7:10 PM EDT Pulse 71 09/16/2021 7:10 PM EDT Temperature 35 C (95 F) 09/16/2021 7:10 PM EDT Respiratory Rate 17 09/16/2021 7:10 PM EDT Oxygen Saturation 100% 09/16/2021 7:10 PM EDT Inhaled Oxygen Concentration - - Weight - - Height - - Body Mass Index - - Plan of Treatment Not on file Medical Devices Not on file Insurance GENERIC MEDICARE REPLACEMENT GENERIC MEDICARE REPLACEMENT GENERIC MEDICARE REPLACEMENT GENERIC MEDICARE REPLACEMENT GENERIC MEDICARE REPLACEMENT GENERIC MEDICARE REPLACEMENT GENERIC MEDICARE REPLACEMENT GENERIC MEDICARE REPLACEMENT GENERIC MEDICARE REPLACEMENT Care Teams Correctional Captain Relationship Specialty Start Date End Date Qasim Cason DO [address] [place] [id number] PCP - General Internal Medicine 09/16/21 Additional Source Comments The information contained in this document represents components of the legal health record. It is not the complete legal health record.[facility]
[2024-09-30 16:48] LABS: Hemoglobin A1C 152.1036 umol/L; Total Hemoglobin (HGBA1C) 3667.2540 umol/L
[2024-09-30 17:17] LABS: Alanine Aminotransferase 28 U/L (0-31); Albumin Level 4.2 g/dL (3.5-5.0); Alkaline Phosphatase 136 U/L (39-117); Aspartate Amino Transferase 46 U/L (5-31); Cholesterol 193 mg/dL (<200); HDL Cholesterol 58 mg/dL (>40); Total Protein 7.0 g/dL (6.5-8.0); Triglycerides 185 mg/dL (<150)
[2024-09-30 17:41] LABS: Folate 14.6 ng/mL (> or = 4.0); Vitamin B12 767 pg/mL (200-900)
== END ==
LOC: HO.CARD 13:47
PROVIDERS: PCP Physician Assistant Medical; Visit Provider Physician Assistant Medical
DX: Z00.00 Encounter for general adult medical examination without abnormal findings (principal); R53.83 Other fatigue; R01.1 Cardiac murmur, unspecified
CPT/HCPCS: 36415; 80061; 80076; 82306; 82607; 82746; 83036; 84443; 86140; 93306; Q9957

== ENCOUNTER → 2024-09-30 13:51 | Outpatient (BNV) | payer MEDICARE, SELFPAY | PROVIDERS: PCP Physician Assistant Medical; Visit Provider Internal Medicine Cardiovascular Disease | DX: I31.39 Other pericardial effusion (noninflammatory) (principal) | CPT/HCPCS: 93306 ==

== ENCOUNTER 2025-02-17 13:01 | Outpatient (AMB) | payer MEDICARE, SELFPAY ==
[2025-02-17 13:25] VITALS: BP 126/61; PULSE 84; TEMP 36.6; O2SAT 94; BMI 29.6
--- NOTE | 2025-02-17 13:25 | A.OFFPC_ITS ---
Vital Signs 02/17/25 13:25 Height 5 ft 3 in Weight 167 lb BMI 29.6 BP 126/61 Blood Pressure Location Rt brachial Position Sitting Pulse 84 Pulse Source Pulse Oximeter Temp 97.8 F Temp Source Temporal Artery Scan Pulse Oximetry (%) 94 Oxygen Delivery Method Room Air Intake Visit Reasons: 6 Month follow up Clean Room Assembler Required: No Accompanied by: Daughter Allergies Penicillins Allergy (Intermediate, Verified 02/17/25 15:22) HIVES naproxen (Aleve) Allergy (Unknown, Verified 02/17/25 15:22) Swelling Medication List - Last Reconciled 02/17/25 by Nano Puente PA-C apixaban (Eliquis) 5 mg PO BID cephalexin 500 mg PO Q6H 10 days cholecalciferol (vitamin D3) 50 mcg PO DAILY ntbkqhsjdpu-cecdsvrxs-iksuxkxb 200-62.5-25 mcg (Trelegy Ellipta) 1 inh inhalation DAILY lisinopril 10 mg PO DAILY metoprolol succinate ER 50 mg PO DAILY mupirocin 2% 1 appl topical QID venlafaxine ER 75 mg PO DAILY Tobacco use date assessed: 08/26/24 Dental Screening Dental Screen Date: 08/26/24 HPI HPI Comments History of Present Illness Details History of Present Illness The patient is an 84 year old female presenting for a follow-up visit to address fatigue, a skin lesion on the forehead, and shortness of breath. The visit was prompted by a message from a [facility] nurse practitioner who conducted an annual home visit, during which the patient complained of fatigue and a non- healing, bleeding skin lesion on her forehead that has been present for a while. The fatigue has been persistent, and venlafaxine dosage was previously reduced as a possible intervention. An echocardiogram performed on 09/30/2024 revealed grade 1 diastolic dysfunction, a small, stable pericardial effusion, a mildly enlarged left atrium, and a thickened aortic valve with trace regurgitation, with a recommendation for a repeat study in 6-12 months. A heart murmur was noted on a prior visit, which prompted the ultrasound order. She has a history of hypertension. The patient reports feeling tired when her blood pressure is low. The patient reports dyspnea with physical exertion but denies it at rest or when lying flat. She has a known history of restrictive pulmonary disorder and a non- active tuberculosis nodule. The patient denies a personal history of smoking but reports significant exposure to secondhand smoke, as her father and all her siblings smoked. She denies chest tightness or morning cough. Her hemoglobin A1c was 5.9% in September, indicating prediabetes, which she has had for a while. She has a family history of cancer but denies a personal history. She has a known allergy to penicillin and is sensitive to anesthesia. Her current medications include metoprolol extended release 50 mg, venlafaxine 75 mg, lisinopril 10 mg, and Eliquis 5 mg twice a day. Social History - Tobacco Use: Patient denies ever smoki ng. - Environmental Exposures: Reports signi ficant secondhand smoke exposure in the past, as her father and all siblings were smokers. - Sun Exposure: Used baby oil for tannin g in the past. - Exercise: Reports she wants to exercis e but feels too tired. - Support System: Her daughter is her po wer of bankruptcy attorney and is involved in her care. 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 Spinal stenosis Dysphagia Dermatitis Insomnia Restrictive lung disease HTN (hypertension) Paroxysmal atrial fibrillation Surgical History History of right oophorectomy Hx of appendectomy Hx of cataract Family History Father Alcohol abuse Mother Diabetes Social History Household Members: Other Household Members Other:: self Housing: Apartment Do you presently have visiting nurse or other home services: No Alcohol intake: current Alcohol intake frequency: holidays/special occasions only Alcohol type: wine Patient Tobacco Use Status: Never used Tobacco Advance Directives Date on File: 09/05/23 service: No Current occupational status: retired Cognitive needs: No Hearing needs: No Vision needs: No Questionnaire PHQ-9 Over the last 2 weeks, how often have you been bothered by any of the following problems? 1. Little interest or pleasure in doing things: not at all 2. Feeling down, depressed, or hopeless: not at all 3. Trouble falling or staying asleep, or sleeping too much: not at all 4. Feeling tired or having little energy: not at all 5. Poor appetite or overeating: not at all 6. Feeling bad about yourself - or that you are a failure or have let yourself or your family down: not at all 7. Trouble concentrating on things, such as reading the newspaper or watching television: not at all 8. Moving or speaking so slowly that other people could have noticed. Or the opposite - being so fidgety or restless that you have been moving around a lot more than usual: not at all 9. Thoughts that you would be better off or of hurting yourself in some way: not at all Total score: 0 Depression Screening Interpretation: Negative Depression Screening Done: Yes 42827 - PHQ-9 Billing: Yes Source: Developed by Drs. Qasim Hubbard, Amanda Smith, Rojelio Mahoney and colleagues, with an educational cayden from [employer]. Thrive Questionnaire Date Thrive assessed: 08/26/24 I am a: Patient What is your living situation today?: I have a steady place to live Within the past 12 months, did the food you bought not last and you didn't have the money to get more?: Never true Within the past 12 months, did you worry whether your food would run out before you got money to buy more?: Never true Do you have trouble paying for medicines?: No Do you have trouble getting transportation to medical appointments?: No Do you have trouble paying your heating and electricity bill?: No Do you have trouble taking care of your child, family member or friend?: No Do you have trouble with day-to-day activities such as bathing, preparing meals, shopping, managing finances, etc.?: No Are you currently unemployed and looking for a job?: No Are you interested in more education?: No Please select the resources that you would like help with: None Currently or been in a relationship where the following occur: No concerns reported THRIVE Score: 0 AUDIT C Alcohol Use Questionnaire (AUDIT-C) 1. How often do you have a drink containing alcohol?: Monthly or less 2. How many drinks containing alcohol do you have on a typical day when you are drinking?: 1 or 2 3. How often do you have six or more drinks on one occasion?: Never Total Score: 1 Score Reviewed/Action Taken: No CHEO-7 AMB Questionnaire CHEO-7 Date CHEO - 7 assessed: 08/26/24 Feeling nervous, anxious, or on edge: 0 = Not at all Not being able to stop or control worryin = Not at all Worrying too much about different things: 0 = Not at all Trouble relaxin = Not at all Being so restless that it is hard to sit still: 0 = Not at all Becoming easily annoyed or irritable: 0 = Not at all Feeling afraid as if something awful might happen: 0 = Not at all Total CHEO-7 score (0-4 normal; 5-9 mild; 10-14 moderate; 15-21 severe): 0 Source: Developed by Drs. Qasim Hubbard, Amanda Smith, Rojelio Mahoney and colleagues, with an educational cayden from [employer]. CHEO-7 Assessment Billing CHEO-7 Assessment Tool: CHEO-7 Assessment 74256 Review of Systems Narrative Review of Systems - General: Reports persistent fatigue. - Integumentary: Reports a non-healing lesion on her forehead that bleeds, and also has lesions on her back. - Cardiovascular: Denies chest pain or leg swelling. - Respiratory: Reports shortness of breath with physical exertion. - Denies chest tightness or morning cough. Const All systems reviewed & are unremarkable except as noted in HPI and below Physical exam (Primary Care) Vital Signs: Last Vital Signs Temp 97.8 F 02/17/25 13:25 Pulse 84 02/17/25 13:25 BP 126/61 02/17/25 13:25 Pulse Ox 94 02/17/25 13:25 Oxygen Delivery Method Room Air 02/17/25 13:25 Care Plan Goal for BP management: <140/90 BMI result Body Mass Index 29.6 BMI Assessment/Plan discussion: High BMI High, discussed plan: lifestyle, weight reduction, dietary, physical activity, alcohol moderation and other Tobacco/Smoking Status: Tobacco use Status Tobacco use date assessed 08/26/24 02/17/25 13:32 Patient Tobacco Use Status Never used Tobacco 02/17/25 13:32 PHQ-9: PHQ-9 Score PHQ-9: Total score 0 02/17/25 13:32 Depression Screening Interpretation: Negative Thrive Assessment: Date of Thrive Assessment Date Thrive assessed 08/26/24 02/17/25 13:32 Currently or been in a relationship where the following occur: No concerns reported Narrative Physical Exam Appearance: Alert. Oriented X3. No acute distress. Head: Normal external exam. Normocephalic. Atraumatic. Eyes: Pupils are equal, round, and reactive to light. Extraocular movements intact. Conjunctiva and sclera normal. Eyelids normal. Throat: Pharynx normal. Uvula midline. Moist mucous membranes. Neck: Normal inspection. Neck supple. Full range of motion. Cardiovascular: Normal heart rate and rhythm. Heart sound normal. No murmurs noted. Pulses normal throughout. Blood pressure is 126/61. Respiratory: No respiratory distress. Painless inspiration. Breath sounds normal. No wheezes/rales/rhonchi noted. No accessory muscle usage noted or decreased air movement noted. Reports shortness of breath, possibly related to COPD or asthma. Back: Full range of motion noted. Skin: Skin warm and dry. Normal skin color. Normal skin turgor. Reports a skin lesion on the forehead that bleeds and has been present for a while. Although the forehead lesion has some mild erythema and warmth to touch and soft tissue swelling may be start of cellulitis infection as patient has been picking at it and taking off the scab daily. She also has multiple moles in her back and her body although no suspicious obvious lesions other than the 1 on her forehead. No additional rashes, lesions or lacerations or signs of infection noted. Extremities: Extremities exhibit normal range of motion. No pain or swelling when pushing anywhere on the legs. Neuro: Oriented X 3. No motor deficit. No sensory deficit. Reflexes normal. Results Reviewed Results Reviewed: - Labs: Hemoglobin A1c was 5.9% in September. - Imaging: - Echocardiogram (09/30/2024): Grade 1 diastolic dysfunction, small and stable pericardial effusion, mildly enlarged left atrium, and thickened aortic valve with trace regurgitation, with no evidence of pulmonary hypertension. Coding Level of Care Code Est Pt Level 4 (39051) Add On Problem Visit Only Diagnoses Fatigue R53.83 Dyspnea on exertion R06.09 Skin lesion L98.9 Prediabetes R73.03 Preventative health care Z00.00 Additional Codes CHEO-7 Assessment Billing - CHEO-7 Assessment Tool: CHEO-7 Assessment 79103 ([id number]) PHQ-9 - 93713 - PHQ-9 Billing: Yes ([id number]) Time Spent (min) 60 Assessment & Plan Assessment & Plan (1) Fatigue: Code(s): R53.83 - Other fatigue Category: Medical Plan: The patient's fatigue and exertional dyspnea are likely multifactorial. Cardiac etiology is considered, given findings of diastolic dysfunction, a stiff heart muscle, and trace aortic regurgitation on a prior echocardiogram. A referral to Cardiology is ordered to evaluate for worsening cardiac function, as it has been nearly three years since the last assessment. A pulmonary component is also green spected due to a history of restrictive lung disease, a non-active TB nodule, and significant secondhand smoke exposure. To further evaluate this, a pulmonary function test, a chest X-ray, and a referral to Pulmonology are ordered. A trial of Trelegy Ellipta inhaler, one puff daily, will be initiated to see if it improves her shortness of breath. Blood work including a CBC, CMP, and BNP will be obtained to check for anemia, electrolyte abnormalities, and fluid retention/heart failure. (2) Dyspnea on exertion: Code(s): R06.09 - Other forms of dyspnea Category: Medical Plan: The patient's fatigue and exertional dyspnea are likely multifactorial. Cardiac etiology is considered, given findings of diastolic dysfunction, a stiff heart muscle, and trace aortic regurgitation on a prior echocardiogram. A referral to Cardiology is ordered to evaluate for worsening cardiac function, as it has been nearly three years since the last assessment. A pulmonary component is also suspected due to a history of restrictive lung disease, a non-active TB nodule, and significant secondhand smoke exposure. To further evaluate this, a pulmonary function test, a chest X-ray, and a referral to Pulmonology are ordered. A trial of Trelegy Ellipta inhaler, one puff daily, will be initiated to see if it improves her shortness of breath. Blood work including a CBC, CMP, and BNP will be obtained to check for anemia, electrolyte abnormalities, and fluid reten tion/heart failure. (3) Skin lesion: Code(s): L98.9 - Disorder of the skin and subcutaneous tissue, unspecified Category: Medical Plan: The patient presents with a non-healing, bleeding lesion on her forehead and similar-appearing lesions on her back. Given her history of sun exposure using baby oil, there is concern for skin cancer. A referral to Dermatology is ordered for evaluation. Due to signs of secondary infection from picking at the lesion, she is prescribed topical Bactroban and oral Keflex. The patient is instructed to stop touching the lesion. (4) Prediabetes: Code(s): R73.03 - Prediabetes Category: Medical Plan: The patient has a history of prediabetes with a hemoglobin A1c of 5.9% in September. To monitor her status, a repeat hemoglobin A1c and a urine microalbumin to check for kidney involvement are ordered. She was advised that medication for diabetes is typically started if the A1c reaches 6.4%. (5) Preventative health care: Code(s): Z00.00 - Encounter for general adult medical examination without abnormal findings Category: Medical Plan: A follow-up appointment is scheduled in two months, which will serve as her an nual physical. By then, it is hoped she will have completed the pulmonary function test and seen specialists in Dermatology and Pulmonology, and have an appointment scheduled with Cardiology. Plan Plan Patient was informed and verbally consented to the use of an ambient scribe for clinic note documentation during this visit. 1. Fatigue And Dyspnea On Exertion The patient's fatigue and exertional dyspnea are likely multifactorial. Cardiac etiology is considered, given findings of diastolic dysfunction, a stiff heart muscle, and trace aortic regurgitation on a prior echocardiogram. A referral to Cardiology is ordered to evaluate for worsening cardiac function, as it has been nearly three years since the last assessment. A pulmonary component is also suspected due to a history of restrictive lung disease, a non-active TB nodule, and significant secondhand smoke exposure. To further evaluate this, a pulmonary function test, a chest X-ray, and a referral to Pulmonology are ordered. A trial of Trelegy Ellipta inhaler, one puff daily, will be initiated to see if it improves her shortness of breath. Blood work including a CBC, CMP, and BNP will be obtained to check for anemia, electrolyte abnormalities, and fluid retention/heart failure. 2. Suspicious Skin Lesion The patient presents with a non-healing, bleeding lesion on her forehead and similar-appearing lesions on her back. Given her history of sun exposure using baby oil, there is concern for skin cancer. A referral to Dermatology is ordered for evaluation. Due to signs of secondary infection from picking at the lesion, she is prescribed topical Bactroban and oral Keflex. The patient is instructed to stop touching the lesion. 3. Prediabetes The patient has a history of prediabetes with a hemoglobin A1c of 5.9% in September. To monitor her status, a repeat hemoglobin A1c and a urine microalbumin to check for kidney involvement are ordered. She was advised that medication for diabetes is typically started if the A1c reaches 6.4%. 4. Hypertension The patient's current blood pressure is 126/61, which is well-controlled on her current regimen of metoprolol and lisinopril. No changes to her antihypertensive medications will be made at this time. She has been instructed to monitor her blood pressure at home and to notify the office if it consistently drops below 100/50 mmHg, as this may require a medication adjustment. 5. Preventative Care A follow-up appointment is scheduled in two months, which will serve as her annual physical. By then, it is hoped she will have completed the pulmonary function test and seen specialists in Dermatology and Pulmonology, and have an appointment scheduled with Cardiology. Discussion Notes I discussed with the patient and her daughter the likely multifactorial causes of her fatigue and shortness of breath, including her known diastolic dysfunction and restrictive lung disease. I explained that the stiffness in her heart muscle and the trace valve regurgitation, while noted on her last echo almost three years ago, could have progressed and contributed to her symptoms. Therefore, I recommended a referral to Cardiology for further evaluation. I also explained that her history of secondhand smoke exposure, restrictive lung disease, and a non-active TB nodule warrant further pulmonary evaluation. I have ordered a PFT and chest x-ray and will refer her to Pulmonology. We discussed trying a daily inhaler (Trelegy) to see if it alleviates her dyspnea. Regarding the forehead lesion, I conveyed the importance of a dermatological evaluation due to its non-healing nature and her history of sun exposure, noting the possibility of skin cancer. I am prescribing topical and oral antibiotics for a likely secondary infection and strongly advised her to stop picking at it. I advised the patient to continue her current medications but to monitor her blood pressure at home and inform us if it drops below 100/50. I provided return precautions, instructing her to go to the ER for chest pain, worsening shortness of breath, or leg swelling. We scheduled a follow-up in two months to serve as her annual physical and review the results of the planned workup. Orders: Orders Hemoglobin A1c Today Z00.00 - Encounter for general adult medical examination without abnormal findings Microalbumin, Random (w Creat) Today E11.9 - Type 2 diabetes mellitus without complications PFT pulmonary function test Today R06.02 - Shortness of breath Referrals Cardiology Referral I31.39 - Other pericardial effusion (noninflammatory), I34.0 - Nonrheumatic mitral (valve) insufficiency, I51.89 - Other ill-defined heart diseases Pulmonology Referral J98.4 - Other disorders of lung, R06.02 - Shortness of breath, R53.83 - Other fatigue Dermatology Referral L98.9 - Disorder of the skin and subcutaneous tissue, unspecified Medications: New emnduwgnrti-tqivwjbhj-txtmuact 200-62.5-25 mcg (Trelegy Ellipta) 1 inh inhalation DAILY 60 ea 1RF mupirocin 2% 1 appl topical QID 22 grams 1RF cephalexin 500 mg PO Q6H 40 caps 0RF 10 days Patient Instructions: Patient Instructions - You will be referred to a heart doctor (Cardiology), a lung doctor (Pulmonology), and a skin doctor (Dermatology). - Go to the lab to have blood work done (CBC, CMP, BNP, Hemoglobin A1c) and to provide a urine sample. - You also need to get a chest x-ray and a breathing test called a pulmonary function test. - Start using the Trelegy inhaler once every day as prescribed to help with your breathing. - For the sore on your forehead, parts picker the Bactroban ointment and Keflex pills from the pharmacy. - Apply the ointment to the sore every day and do not touch or pick at it. - Continue taking your current medications for blood pressure (metoprolol, lisinopril), mood (venlafaxine), and blood thinning (Eliquis). - Check your blood pressure at home. - If it is regularly lower than 100/50, please call our office. - Go to the emergency room if you have chest pain, worsening shortness of breath, or new swelling in your legs. - You have a follow-up appointment scheduled in two months, which will be your annual physical exam.
--- OUTSIDE RECORDS SUMMARY | 2025-02-17 20:01 | XMS_ITS | Clinical Summary ---
Author Organization [facility] Address [address] [address] Phone Care Team Providers Care Oil Pit Attendant Name Role Phone Kamla Qasim Mckinney Primary Care Provider + [phone] Allergies Active Allergy Reactions Criticality Noted Date [...] MEDICARE REPLACEMENT GENERIC MEDICARE REPLACEMENT Care Teams Oil Pit Attendant Relationship Specialty Start Date End Date Qasim Cason DO [address] [place] [id number] PCP - General Internal Medicine 09/16/21 Additional Source Comments The information contained in this document represents components of the legal health record. It is not the complete legal health record.[facility]
--- OUTSIDE RECORDS SUMMARY | 2025-02-17 20:01 | XMS_ITS | Encounter Summary ---
Author Organization [facility] Address [address] [facility] [address] [place] [id number] Phone Care Team Providers Care Operations Asst Name Role Phone Qasim Cason DO Primary Care Provider + [phone] Encounter Details Date Type Department Care Team (Late st Contact Info) Description 09/16/2021 Procedure Pass [facility], Ct Scan - [address] [id number] Social History Tobacco Use Types Packs/Day Years Used Date Smoking Tobacco: Never Assessed Comments Unknown Sex and Gender Information Value Date Recorded Sex Assigned at Not on file Legal Sex Female 6:40 PM EDT Gender Identity Not on file Sexual Orientation Not on file documented as of this encounter Functional Status * Calculated C-SSRS Risk Score (Lifetime/Recent) Answer Date of Assessment Author No Risk Indicated 09/16/2021 7:01 PM EDT Sienna Ba RN * [place] Suicide Severity Rating Scale (Screener/Recent Self-Report) Question Answer Date of Assessment Author 1. Wish to be (Past 1 Month) No 09/16/2021 7:01 PM EDT Sienna Ba RN 2. Non-Specific Active Suici bárbara Thoughts (Past 1 Month) No 09/16/2021 7:01 PM EDT Adeline Ba RN 6. Suicidal Behavior (Lifetime) No 7:01 PM EDT Sienna Ba RN documented as of this encounter Plan of Treatment Not on file documented as of this encounter Visit Diagnoses Not on filedocumented in this encounter Care Teams Operations Asst Relationship Specialty Start Date End Date Qasim Cason DO [address] [place] [phone] PCP - General Internal Medicine 09/16/21 documented as of this encounter Additional Source Comments The information contained in this document represents components of the legal health record. It is not the complete legal health record.[facility]
== END 2025-02-17 14:06 | disposition home or self-care (01) ==
LOC: HO.HMCSH 13:01
PROVIDERS: PCP Physician Assistant Medical; Visit Provider Physician Assistant Medical
DX: R53.83 Other fatigue (principal); R06.09 Other forms of dyspnea; L98.9 Disorder of the skin and subcutaneous tissue, unspecified; R73.03 Prediabetes; Z00.00 Encounter for general adult medical examination without abnormal findings

== ENCOUNTER → 2025-02-17 13:01 | Outpatient (BNVA) | payer MEDICARE, SELFPAY | PROVIDERS: PCP Physician Assistant Medical; Visit Provider Physician Assistant Medical | DX: Z00.00 Encounter for general adult medical examination without abnormal findings (principal); L98.9 Disorder of the skin and subcutaneous tissue, unspecified; R73.03 Prediabetes; R53.83 Other fatigue; Z13.31 Encounter for screening for depression | CPT/HCPCS: 96127; 99212 ==